=== PATIENT | male | born 1970 | race African-American/Black ===

== ENCOUNTER → 2017-10-23 | Outpatient (CLI) | payer OTHER ==
[2017-10-23 16:47] LABS: HEMATOCRIT 36.6 % (42-52); HEMOGLOBIN 12.5 g/dL (14.0-18.0); MEAN CELL VOLUME 85.7 fL (80-100); MEAN CORPUSCULAR HEMOGLOBIN 29.3 pg (25-34); MEAN PLATELET VOLUME 10.4 fL (7.4-10.4); PLATELET COUNT 214 K/uL (130-400); RED CELL DISTRIBUTION WIDTH CV 12.6 % (11.5-14.5); RED CELL DISTRIBUTION WIDTH SD 39.2 fL (36.4-46.3); WHITE BLOOD COUNT 12.88 K/uL (4.8-10.8)
[2017-10-23 16:49] LABS: MEAN CORPUSCULAR HGB CONC 34.2 g/dl (32-36)
[2017-10-23 17:11] LABS: ALBUMIN 3.8 gm/dl (3.4-5.0); ALKALINE PHOSPHATASE 77 U/L (45-117); ALT/SGPT 29 U/L (12-78); AST/SGOT 21 U/L (15-37); BLOOD UREA NITROGEN 11 mg/dl (7-18); CALCIUM 9.5 mg/dl (8.5-10.1); CARBON DIOXIDE 26 mmol/L (21-32); CREATININE 1.48 mg/dl (0.60-1.40); GLUCOSE 93 mg/dl (70-99); POTASSIUM 3.8 mmol/L (3.5-5.1); SODIUM 136 mmol/L (136-145); TOTAL PROTEIN 8.7 gm/dl (6.4-8.2)
[2017-10-23 17:17] LABS: INFLUENZA B ANTIGEN Neg for Influ B (NEG)
--- NOTE | 2017-10-26 14:02 | CODING QUERY NO DIAGNOSIS ---
TREATMENT RENDERED WITHOUT A DIAGNOSIS Dr. Ibarra, To promote full compliance with coding requirements relating to patient care, physician participation is requested in all cases of tank car cleaner uncertainty. Please assist us with providing a diagnosis/symptom for the test(s) below: A diagnosis/symptom was not documented on your Order. A valid diagnosis/symptom is required to bill all insurances. Please remember that we are unable to code a diagnosis of rule out, probable, possible, questionable, or suspected. Tests that require a diagnosis: * CBC W/O DIFF DIAGNOSIS: * CMP DIAGNOSIS: * INFLUENZA VIRUS A&B ANTIGEN DIAGNOSIS: DATE OF SERVICE: 10/23/17 Provider Signature: Date: Thank you Manny Chowdary [facility] Information Management Once completed, please kindly fax back to [phone] For questions please call [phone]
== END | disposition home or self-care (01) ==
LOC: C.LABSPEC 16:37
PROVIDERS: ATTEND Family Medicine
DX: Z01.89 Encounter for other specified special examinations (principal)

== ENCOUNTER → 2017-10-24 | Outpatient (CLI) | payer OTHER ==
[2017-10-24 12:35] LABS: BASO % 0.1 %; BASO ABS # 0.01 K/uL (0-0.2); EOS % 0.2 %; EOS ABS # 0.03 K/uL (0-0.5); HEMATOCRIT 36.7 % (42-52); IG# 0.02 K/uL (0.00-0.02); LYMPH % 9.6 %; LYMPH ABS # 1.65 K/uL (1.2-3.4); MEAN CORPUSCULAR HEMOGLOBIN 28.8 pg (25-34); MEAN PLATELET VOLUME 10.7 fL (7.4-10.4); MONO % 8.2 %; NEUT % 81.8 %; NEUT ABS # 14.01 K/uL (1.4-6.5); PLATELET COUNT 221 K/uL (130-400); RED CELL DISTRIBUTION WIDTH SD 41.8 fL (36.4-46.3); WHITE BLOOD COUNT 17.12 K/uL (4.8-10.8)
[2017-10-24 12:57] LABS: ALBUMIN 3.1 gm/dl (3.4-5.0); ALKALINE PHOSPHATASE 61 U/L (45-117); ALT/SGPT 24 U/L (12-78); AST/SGOT 17 U/L (15-37); BLOOD UREA NITROGEN 12 mg/dl (7-18); CALCIUM 8.6 mg/dl (8.5-10.1); CARBON DIOXIDE 26 mmol/L (21-32); CREATININE 1.26 mg/dl (0.60-1.40); GLUCOSE 85 mg/dl (70-99); POTASSIUM 3.8 mmol/L (3.5-5.1); SODIUM 137 mmol/L (136-145); TOTAL PROTEIN 7.5 gm/dl (6.4-8.2)
[2017-10-24 13:27] LABS: MEAN CORPUSCULAR HGB CONC 32.7 g/dl (32-36)
--- NOTE | 2017-11-01 08:01 | CODING QUERY NO DIAGNOSIS ---
TREATMENT RENDERED WITHOUT A DIAGNOSIS : 70 To promote full compliance with coding requirements relating to patient care, physician participation is requested in all cases of power plant assistant uncertainty. Please assist us with providing a diagnosis/symptom for the test(s) below: A diagnosis/symptom was not documented on your Order. A valid diagnosis/symptom is required to bill all insurances. Please remember that we are unable to code a diagnosis of rule out, probable, possible, questionable, or suspected. Tests that require a diagnosis: DOS: 10/24/17 * CBC WITH AUTO DIFFER DIAGNOSIS: * COMPREHENSIVE METABO DIAGNOSIS: Provider Signature: Date: Thank you Ailyn Haile [facility] Information Management Once completed, please kindly fax back to [phone] For questions please call [phone]
== END ==
LOC: C.LABSPEC 12:22
PROVIDERS: ATTEND Family Medicine
DX: Z01.89 Encounter for other specified special examinations (principal)

== ENCOUNTER → 2017-10-25 | Outpatient (CLI) | payer OTHER ==
[2017-10-25 07:49] LABS: HEMATOCRIT 36.9 % (42-52); HEMOGLOBIN 12.1 g/dL (14.0-18.0); MEAN CELL VOLUME 87.9 fL (80-100); MEAN CORPUSCULAR HEMOGLOBIN 28.8 pg (25-34); MEAN PLATELET VOLUME 10.5 fL (7.4-10.4); PLATELET COUNT 204 K/uL (130-400); RED CELL DISTRIBUTION WIDTH CV 13.1 % (11.5-14.5); RED CELL DISTRIBUTION WIDTH SD 42.5 fL (36.4-46.3); WHITE BLOOD COUNT 11.54 K/uL (4.8-10.8)
[2017-10-25 08:00] LABS: MEAN CORPUSCULAR HGB CONC 32.8 g/dl (32-36)
== END ==
LOC: C.LABSPEC 07:37
PROVIDERS: ATTEND Family Medicine
DX: Z01.89 Encounter for other specified special examinations (principal)

== ENCOUNTER 2018-03-23 10:16 | Inpatient (IN) | payer OTHER ==
[~2018-03-23] VITALS: Ht 172.7 cm; Wt 103.1 kg
[~2018-03-23 10:16] MED LIST: ACET-1256 PO; MAGNSOL PO; TAMS0.4C38 PO
[2018-03-23] MEDS ORDERED: MoRPHine SULFATE 4 MG/ML 1 ML CARP\\VIAL IV STA (10:45)
[2018-03-23] MEDS ORDERED: ONDANSETRON INJ 2 MG/ML 2 ML VIAL IV STA (10:45)
[2018-03-23 11:10] LABS: BASO % 0.1 %; BASO ABS # 0.01 K/uL (0-0.2); EOS % 0.5 %; EOS ABS # 0.05 K/uL (0-0.5); HEMATOCRIT 31.8 % (42-52); HEMOGLOBIN 10.6 g/dL (14.0-18.0); IG# 0.02 K/uL (0.00-0.02); LYMPH % 10.8 %; LYMPH ABS # 1.18 K/uL (1.2-3.4); MEAN CELL VOLUME 86.6 fL (80-100); MEAN CORPUSCULAR HEMOGLOBIN 28.9 pg (25-34); MEAN CORPUSCULAR HGB CONC 33.3 g/dl (32-36); MEAN PLATELET VOLUME 9.7 fL (7.4-10.4); MONO % 11.7 %; MONO ABS # 1.28 K/uL (0.11-0.59); NEUT % 76.7 %; NEUT ABS # 8.37 K/uL (1.4-6.5); PLATELET COUNT 277 K/uL (130-400); RED CELL DISTRIBUTION WIDTH CV 14.4 % (11.5-14.5); RED CELL DISTRIBUTION WIDTH SD 45.7 fL (36.4-46.3); WHITE BLOOD COUNT 10.91 K/uL (4.8-10.8)
[2018-03-23] MEDS ORDERED: CEFTRIAXONE SOD INJ 1 GM ADDVIAL IV STA (11:21)
[2018-03-23 11:28] LABS: CALCIUM 8.9 mg/dl (8.5-10.1); CREATININE 1.56 mg/dl (0.60-1.40); POTASSIUM 3.8 mmol/L (3.5-5.1)
--- NOTE | 2018-03-23 12:10 | DIAGNOSTIC IMAGING REPORT ---
(TESTICULAR) SCROTUM-CONT CLINICAL HISTORY: 47 years-old Male presenting with R scrotal pain and induration, R testicular tenderness. TECHNIQUE: Real-time grayscale and color and spectral Doppler ultrasound imaging of the scrotum was performed. COMPARISON: 01/30/2018. FINDINGS: Right testis: Normal echogenicity and echotexture. Testis measures 4.5 x 2.8 x 2.4 cm. Normal color Doppler flow and arterial and venous waveforms in the testicular parenchyma. No significant enlargement of the epididymal head, however, hyperemia and enlargement of the epididymal tail suggested. Small hydrocele with low-level internal echoes. No varicocele. Posterior and inferior to the right testis located within the scrotal wall is an 8 mm hypoechoic nodular mass. Internal vascular flow is noted within this this is unchanged from prior exam. Left testis: Normal echogenicity and echotexture. Testis measures 4.2 x 2.9 x 2.2 cm. Normal color Doppler flow and arterial and venous waveforms in the testicular parenchyma. A lesser degree of epididymal hyperemia suggested on the left. Small hydrocele with low-level internal echoes. No varicocele. Symmetric perfusion of the testes. Other: Hyperemia of the scrotum with skin thickening suggested. A septated hypoechoic complex 6.4 x 5.6 x 6.9 cm collection along the right aspect of the scrotum. There is an additional similar-appearing 7.4 x 5.9 x 4.0 cm collection. IMPRESSION: 1. 2 complex fluid collections measuring 6.9 cm and 7.4 cm concerning for abscesses. These are likely located within the scrotal wall or surrounding soft tissues. These are extratesticular and extra scrotal. Urologic consultation advised. 2. No evidence of testicular torsion. 3. Findings suggest right epididymitis. 4. Complex bilateral small hydroceles. Pyoceles not excluded. 5. Indeterminate subcentimeter nodule in the posterior right scrotal wall. Correlate clinically. This is unchanged from prior. Electronically signed by: Severino Pearce M.D. 03/23/2018 12:08 PM Dictated Date/Time: 03/23/2018 11:59 AM
[2018-03-23] MEDS ORDERED: MoRPHine SULFATE 2 MG/ML CARP IV STA (12:57)
[2018-03-23] MEDS ORDERED: OPTIRAY 320 IV PRN (13:30)
[2018-03-23] MEDS ORDERED: MAGNESIUM HYDROXIDE SUSP 30 ML UDC PO PRN (14:15)
[2018-03-23] MEDS ORDERED: ONDANSETRON INJ 2 MG/ML 2 ML VIAL IV PRN (14:15)
[2018-03-23] MEDS ORDERED: PIPERACILL/TAZOBAC CONSULT ACTIVE PRN (14:15)
[2018-03-23] MEDS ORDERED: ALUMINUM/MAGNESIUM/SIMETH (MAALOX MAX) 30 ML UDC PO PRN (14:15)
[2018-03-23] MEDS ORDERED: ACETAMINOPHEN 325 MG TAB PO PRN (14:15)
[2018-03-23] MEDS ORDERED: MoRPHine SULFATE 2 MG/ML CARP IV PRN (14:15)
[2018-03-23] MEDS ORDERED: PIPERACILL/TAZOBAC IV 4.5 GM in DEXTROSE 5% 100ML 100 ML IV SCH (14:15)
[2018-03-23] MEDS ORDERED: ACETAMINOPHEN 500 MG TAB PO PRN (14:45)
--- NOTE | 2018-03-23 16:31 | History and Physical ---
History & Physical Date & Time of Service: Mar 23, 2018 at 16:25 Chief Complaint: Cellulitis Of Perineum Primary Care Physician: Jodi PINTO Past Medical/Surgical History Medical Problems: (1) Perineal abscess (2) Pyocele (3) Testicular pain, left (4) Urinary retention Family History Diabetes mellitus This patient presents with persistent perineal problems. There is some concern of a abscess associate with the scrotum on ultrasound. He does have soft tissue swelling more the perineal area toward the rectum on the left side. Patient does relate having difficulty going to the bathroom both with urine and stool he has had some rigors and chills at the present he has been on antibiotics and as soon as these are stopped this comes right back. Urology is agreed in therapy to see the patient for possible incision and drainage Social History Smoking Status: Never Smoker Occupational Status: other Allergies Coded Allergies: No Known Allergies (Unverified , 02/01/18) Home Medications Unable to Obtain Active Prescriptions or Reported Meds Review of Systems ROS: well nourished well developed. He appears uncomfortable No double vision blurry vision No problems with speech or swallowing No palpitations, chest pain or pressure No Wheezing or breathing issues No abdominal pain nausea vomiting diarrhea changes in appetite or weight constipation change in stool caliber Patient has burning and straining of urine and difficulty passing urine and stool No focal joint pain or muscle pain No skin rashes or oral lesions No unusual bruising or bleeding No focused back pain or numbness or loss of strength No changes in memory or confusion Physical Exam Vital Signs Date Time Temp Pulse Resp B/P (MAP) Pulse Ox O2 Delivery O2 Flow Rate FiO2 03/23/18 15:45 77 18 143/75 97 Room Air 03/23/18 13:15 70 18 121/77 99 Room Air 03/23/18 12:03 69 18 116/60 97 Room Air 03/23/18 10:22 36.8 92 18 136/77 98 Room Air General Appearance: WD/WN, + mild distress Head: normocephalic, atraumatic Eyes: normal inspection, sclerae normal ENT: hearing grossly normal, pharynx normal Neck: supple, no JVD Respiratory/Chest: chest non-tender, lungs clear, normal breath sounds Cardiovascular: regular rate, rhythm, no murmur Abdomen/GI: normal bowel sounds, non tender, soft Genitourinary - Male: normal male genitalia, normal phallus, + pertinent finding (Testicles appear normal is not significant swelling in the scrotal area there is however indurated 3-4 cm mass in the area between the scrotum and rectum more towards the left side) Extremities/Musculoskelatal: no pedal edema, normal range of motion Neurologic/Psych: alert, oriented x 3 Skin: normal color, warm/dry Diagnostics Laboratory Results Results Past 24 Hours Test 03/23/18 11:00 03/23/18 11:15 Range/Units White Blood Count 10.91 4.8-10.8 K/uL Red Blood Count 3.67 4.7-6.1 M/uL Hemoglobin 10.6 14.0-18.0 g/dL Hematocrit 31.8 42-52 % Mean Corpuscular Volume 86.6 80-100 fL Mean Corpuscular Hemoglobin 28.9 25-34 pg Mean Corpuscular Hemoglobin Concent 33.3 32-36 g/dl Platelet Count 277 130-400 K/uL Mean Platelet Volume 9.7 7.4-10.4 fL Neutrophils (%) (Auto) 76.7 % Lymphocytes (%) (Auto) 10.8 % Monocytes (%) (Auto) 11.7 % Eosinophils (%) (Auto) 0.5 % Basophils (%) (Auto) 0.1 % Neutrophils # (Auto) 8.37 1.4-6.5 K/uL Lymphocytes # (Auto) 1.18 1.2-3.4 K/uL Monocytes # (Auto) 1.28 0.11-0.59 K/uL Eosinophils # (Auto) 0.05 0-0.5 K/uL Basophils # (Auto) 0.01 0-0.2 K/uL RDW Standard Deviation 45.7 36.4-46.3 fL RDW Coefficient of Variation 14.4 11.5-14.5 % Immature Granulocyte % (Auto) 0.2 % Immature Granulocyte # (Auto) 0.02 0.00-0.02 K/uL Sodium Level 134 136-145 mmol/L Potassium Level 3.8 3.5-5.1 mmol/L Chloride Level 105 98-107 mmol/L Carbon Dioxide Level 21 21-32 mmol/L Anion Gap 8.0 3-11 mmol/L Blood Urea Nitrogen 13 7-18 mg/dl Creatinine 1.56 0.60-1.40 mg/dl Est Creatinine Clear Calc Drug Dose 68.1 ml/min Estimated GFR () 60.4 Estimated GFR (Non- 52.1 BUN/Creatinine Ratio 8.6 10-20 Random Glucose 97 70-99 mg/dl Calcium Level 8.9 8.5-10.1 mg/dl Urine Color DK YELLOW Urine Appearance CLEAR CLEAR Urine pH 6.0 4.5-7.5 Urine Specific [place] 1.034 1.000-1.030 Urine Protein 1+ NEG Urine Glucose (UA) NEG NEG Urine Ketones TRACE NEG Urine Occult Blood TRACE NEG Urine Nitrite NEG NEG Urine Bilirubin NEG NEG Urine Urobilinogen POS NEG Urine Leukocyte Esterase MODERATE NEG Urine WBC (Auto) >30 0-5 /hpf Urine RBC (Auto) 5-10 0-4 /hpf Urine Hyaline Casts (Auto) 10-30 0-5 /lpf Urine Epithelial Cells (Auto) 10-20 0-5 /lpf Urine Bacteria (Auto) NEG NEG Microbiology Results 03/23/18 Blood Culture, Received Pending 03/23/18 Blood Culture, Received Pending Diagnostic Radiology Testicular ultrasound raises question of scrotal abscess Impression Assessment and Plan 47-year-old nondiabetic male with scrotal perineal abscess This is been long-standing for this patient has he has had symptoms for the last 10 months intermittently and has been on antibiotics intermittently. Will pursue CT scan of his pelvis to evaluate for perirectal abscess and surgical consultation for possible incision and drainage. He has had blood cultures and urine culture sent will be placed on Zosyn therapy Once postoperative hemostasis is achieved to be placed on heparin therapy for DVT prevention as is given this is a pelvic issue he may be at moderate to high risk for DVT Pain control be parenteral opiates with oxycodone Resuscitation Status VTE Prophylaxis Will order VTE Prophylaxis: Yes
[2018-03-23 16:50] VITALS: BP 130/71; PULSE 84; TEMP 37; O2SAT 98; Ht 172.7 cm; Wt 103.1 kg
[2018-03-23 16:55] VITALS: BP 130/71; PULSE 83; TEMP 37; O2SAT 99
--- NOTE | 2018-03-23 17:15 | DIAGNOSTIC IMAGING REPORT ---
CT OF THE PELVIS WITH CONTRAST CLINICAL HISTORY: Cellulitis of perineum. COMPARISON STUDY: Scrotal ultrasound performed earlier today. TECHNIQUE: Axial images of the pelvis were obtained following intravenous injection of 116 cc Optiray 320 IV. Sagittal and coronal reconstructions were viewed. FINDINGS: Caliber and wall thickness of visualized small and large bowel are normal. Mild bladder wall thickening is noted. There is no acute fracture within the pelvis or hips. There is a lipoma along anterior aspect of the left iliopsoas muscle. This is benign. Note is made of extensive inflammation within the perineum and the superior aspect of the scrotum with scrotal edema. Note is made of a 7.5 x 2.9 cm rim-enhancing fluid collection within the perineum/base of the penis. In addition, there is an adjacent 6.9 x 5.9 cm fluid collection within the superior aspect of the scrotum/inferior perineum which suggests an additional abscess. There is no soft tissue gas. IMPRESSION: 1. Extensive infectious process involving the perineum, base of the penis and upper scrotum consistent with cellulitis with associated 7.5 x 2.9 cm abscess within the perineum/base of the penis and a 6.9 x 5.9 cm abscess within the superior aspect of the scrotum/inferior perineum. Urologic consultation is recommended. 2. Bladder wall thickening which could be correlated with urinalysis to exclude cystitis. Electronically signed by: Nelson Parrish M.D. 03/23/2018 5:14 PM Dictated Date/Time: 03/23/2018 5:05 PM
[2018-03-23] MEDS: OXYCODONE HCL IR 5 MG TAB (IMMEDIATE RELEASE) PO PRN (17:28)
[2018-03-23] MEDS: SODIUM CHLORIDE 0.9% 1000ML 1,000 ML IV SCH (17:29)
[2018-03-23] MEDS ORDERED: PIPERACILL/TAZOBAC IV 3.375 GM in D5W 100 ML IV ONE (17:30)
--- NOTE | 2018-03-23 17:49 | History and Physical ---
History & Physical Date Mar 23, 2018. Chief Complaint Abscess History of Present Illness The patient is a 47 year old male with complaints of large scrotal abscess and swelling. Intermittent illness and elevated white count. Pain in groin in waves .Previously placed on antiboitcs and failed outpatient therapy. Here due to worsening symptoms. Imaging shows large scrotal wall abscess and bilateral hydrocele. Past Medical/Surgical History Medical Problems: (1) Perineal abscess Allergies Coded Allergies: No Known Allergies (Unverified , 02/01/18) Home Medications Unable to Obtain Active Prescriptions or Reported Meds Physical Examination Skin: warm/dry Eyes: normal inspection Head: normocephalic Neck: trachea midline Respiratory/Chest: no respiratory distress Cardiovascular: regular rate, rhythm Abdomen / GI: non tender Back: normal inspection Extremities: normal inspection Genitourinary - Male: + pertinent finding (large scrotal abscess. ) Neurologic/Psych: no motor/sensory deficits, alert, normal reflexes, oriented x 3 Diagnosis Scrotal Abscess. ASA Classification: ASA Class III Plan of Treatment Risks and benefits discussed. Large scrotal abscess with failed outpatient therapy with antibiotics. Discussed excision and drainage and possible surgical debridement and scrotal exploration. patinet understands and wishes to proceed. Will have packing after procedure and need wound care planning. Also likely need broad spectrum coverage with antibiotics. May need further diabetic control and medical management.
[2018-03-23 18:27] LABS: INR 1.1 (0.9-1.1); PTT PATIENT 33.1 SECONDS (21.0-31.0)
[2018-03-23] MEDS: MoRPHine SULFATE 4 MG/ML 1 ML CARP\\VIAL IV PRN ×2 (18:31→22:52)
--- NOTE | 2018-03-23 18:32 | EMERGENCY ROOM VISIT NOTE ---
ED Visit Note First contact with patient: 10:34 CHIEF COMPLAINT: Infection. HISTORY OF PRESENT ILLNESS: Mr. Dumont is an 47-year-old black male who ambulates into the ED accompanied by senior care guards complaining of right sided scrotal pain. Historically patient reports he had a scrotal abscess in January, 2 months ago. He was placed on Bactrim and reportedly had near resolution of the abscess and his pain associated with it. Over the last 2 days he has noted increasing pain and swelling over the right scrotal area. He was seen at the senior care and diagnosed with an abscess. Currently patient is complaining of severe right sided scrotal pain. He describes this as a combination of sharp and throbbing. He rates his discomfort 10/10. His pain is nonradiating. He reports when his bladder fills up and he feels like he needs to urinate this increases his discomfort and ambulation increases his discomfort. After he urinates he noticed a decrease in discomfort. He reports he has been getting ibuprofen for pain and has had no relief of his discomfort. He denies any associated fevers, chills, sweats, shortness of breath, chest pain, decreased appetite, nausea, vomiting, back/ flank pain, rectal bleeding, black/tarry stools, painful bowel movements, urinary burning, increased urinary frequency, hematuria. REVIEW OF SYSTEMS: As previously noted in History of Present Illness; all body systems reviewed with the patient found to be negative unless noted above otherwise. PAST MEDICAL HISTORY: As noted above and benign prostatic hypertrophy, prostatitis, eczema. CURRENT MEDICATION: Bactrim, ibuprofen, Flomax. ALLERGIES TO MEDICATION: Patient denies. SOCIAL HISTORY: Patient is currently incarcerated PHYSICAL EXAM: Vital Signs: Date Time Temp Pulse Resp B/P (MAP) Pulse Ox O2 Delivery O2 Flow Rate FiO2 03/23/18 13:15 70 18 121/77 99 Room Air 03/23/18 12:03 69 18 116/60 97 Room Air 03/23/18 10:22 36.8 92 18 136/77 98 Room Air General: 47 year-old male in mild to moderate acute distress due to pain, nontoxic appearing, afebrile and hemodynamically stable. Neurological: Awake, alert and oriented to person, place and time. Answering questions appropriately and following commands. Skin: Warm, dry and pink. There is an indurated area in the XXX which measures about XX cm in diameter. It is fluctuant with/out pointing, but no drainage. Right Scrotum: There is a large zone of inflammation around the right lateral aspect and posterior aspect of the scrotum. There is a small area of induration. The surrounding tissues are erythematous, edematous and warm to the touch but I do not appreciate any lymphangitis. Thorax: Lungs sounds are clear to auscultation and equal bilaterally with symmetrical chest wall movement. Abdomen: Flat, soft and nontender. Positive bowel sounds in all quadrants. No guarding or rigidity. Genitals: Please note soft description above under SKIN. Mature, circumcised penis. Appearance of penile warts at the base of the superior shaft of the penis. No other lesions were noted. No drainage from the meatus. Scrotum as noted above. There is no left-sided scrotal lesions. The right testicle was tender to palpation but appear to have a normal lie. No extra scrotal masses were palpable. No local lymphadenopathy. ED COURSE: Patient is assessed as noted above. Patient's medication list was reviewed. Laboratory Testing: Test 03/23/18 11:00 03/23/18 11:15 Range/Units White Blood Count 10.91 4.8-10.8 K/uL Red Blood Count 3.67 4.7-6.1 M/uL Hemoglobin 10.6 14.0-18.0 g/dL Hematocrit 31.8 42-52 % Mean Corpuscular Volume 86.6 80-100 fL Mean Corpuscular Hemoglobin 28.9 25-34 pg Mean Corpuscular Hemoglobin Concent 33.3 32-36 g/dl Platelet Count 277 130-400 K/uL Mean Platelet Volume 9.7 7.4-10.4 fL Neutrophils (%) (Auto) 76.7 % Lymphocytes (%) (Auto) 10.8 % Monocytes (%) (Auto) 11.7 % Eosinophils (%) (Auto) 0.5 % Basophils (%) (Auto) 0.1 % Neutrophils # (Auto) 8.37 1.4-6.5 K/uL Lymphocytes # (Auto) 1.18 1.2-3.4 K/uL Monocytes # (Auto) 1.28 0.11-0.59 K/uL Eosinophils # (Auto) 0.05 0-0.5 K/uL Basophils # (Auto) 0.01 0-0.2 K/uL RDW Standard Deviation 45.7 36.4-46.3 fL RDW Coefficient of Variation 14.4 11.5-14.5 % Immature Granulocyte % (Auto) 0.2 % Immature Granulocyte # (Auto) 0.02 0.00-0.02 K/uL Sodium Level 134 136-145 mmol/L Potassium Level 3.8 3.5-5.1 mmol/L Chloride Level 105 98-107 mmol/L Carbon Dioxide Level 21 21-32 mmol/L Anion Gap 8.0 3-11 mmol/L Blood Urea Nitrogen 13 7-18 mg/dl Creatinine 1.56 0.60-1.40 mg/dl Est Creatinine Clear Calc Drug Dose 68.1 ml/min Estimated GFR () 60.4 Estimated GFR (Non- 52.1 BUN/Creatinine Ratio 8.6 10-20 Random Glucose 97 70-99 mg/dl Calcium Level 8.9 8.5-10.1 mg/dl Urine Color DK YELLOW Urine Appearance CLEAR CLEAR Urine pH 6.0 4.5-7.5 Urine Specific [place] 1.034 1.000-1.030 Urine Protein 1+ NEG Urine Glucose (UA) NEG NEG Urine Ketones TRACE NEG Urine Occult Blood TRACE NEG Urine Nitrite NEG NEG Urine Bilirubin NEG NEG Urine Urobilinogen POS NEG Urine Leukocyte Esterase MODERATE NEG Urine WBC (Auto) >30 0-5 /hpf Urine RBC (Auto) 5-10 0-4 /hpf Urine Hyaline Casts (Auto) 10-30 0-5 /lpf Urine Epithelial Cells (Auto) 10-20 0-5 /lpf Urine Bacteria (Auto) NEG NEG Urine Culture: Pending Scrotal/Testicular Ultrasound: Self and read by the radiology showing 2 complex fluid collection measuring 6.9 and 7.4 cm concerning for abscess located within the scrotal wall along the right aspect of the scrotum. No evidence of testicular torsion. Findings suggestive of right epididymitis. Complex bilateral small hydroceles. Indeterminate subcentimeter nodule in the posterior right scrotal wall unchanged from previous ultrasound. Patient was hydrated with normal saline and initially received 4 mg of morphine IV for pain and 4 mg of Zofran IV. Additionally he received 1 g of Rocephin IV. Patient was reassessed multiple times during his stay in the emergency department. Patient's case was reviewed with Dr. Giordano; we agreed on diagnostic approach, treatment, disposition and plan. Patient's case was consulted with Dr. Graham, urology; I did speak to his nurse practitioner [place]. After my initial consult patient did speak with her again and she requested at Dr. Graham request that a pelvic CT be performed and the patient prepped for OR I and D. Additionally it was requested that the patient be evaluated by the hospitalist prior to surgery. I did speak with the hospitalist and conveyed Dr. Graham's request; please see their notes. Contrast CT Pelvis: Was reviewed by my self and read by the radiologist showing an extensive infectious process involving the peritoneum, base of the penis and upper scrotum with associated abscesses. Also noted was bladder wall thickening. Patient received an additional 2 mg of morphine IV for pain. Patient was educated about his condition and instructed on his treatment plan; they verbalized understanding and agreement with this plan. CLINIC IMPRESSION: Abscess of the certain a.m./right scrotal area. DISPOSITION and PLAN: Patient be taken to the operating room for surgical incision and drainage procedure of his abscesses by Dr. Graham; please see his notes and orders for final disposition and plan.
[2018-03-23] MEDS: KETOROLAC TROMETHAMINE 30 MG/ML VIAL IV PRN (20:12)
[2018-03-23] MEDS ORDERED: PHENAZOPYRIDINE HCL 200 MG TAB PO PRN (21:00)
[2018-03-23] MEDS: PIPERACILL/TAZOBAC IV 3.375 GM in D5W 100ML IV SCH (22:08)
[2018-03-23 22:52] VITALS: BP 126/75; PULSE 84; TEMP 36.9; O2SAT 96
[2018-03-24] VITALS (9 sets, daily range): BP systolic 103–152; BP diastolic 60–78; PULSE 58–74; TEMP 36.5–37.1; O2SAT 91–98
[2018-03-24] MEDS: OXYCODONE HCL IR 5 MG TAB (IMMEDIATE RELEASE) PO PRN (01:18)
[2018-03-24] MEDS: SODIUM CHLORIDE 0.9% 1000ML 1,000 ML IV SCH ×3 (03:04→21:52)
[2018-03-24] MEDS: PIPERACILL/TAZOBAC IV 3.375 GM in D5W 100ML IV SCH ×3 (05:38→21:29)
[2018-03-24] MEDS: MoRPHine SULFATE 4 MG/ML 1 ML CARP\\VIAL IV PRN (05:46)
[2018-03-24 06:50] LABS: HEMATOCRIT 31.6 % (42-52); HEMOGLOBIN 10.3 g/dL (14.0-18.0); MEAN CELL VOLUME 87.8 fL (80-100); MEAN CORPUSCULAR HEMOGLOBIN 28.6 pg (25-34); MEAN CORPUSCULAR HGB CONC 32.6 g/dl (32-36); MEAN PLATELET VOLUME 9.9 fL (7.4-10.4); PLATELET COUNT 333 K/uL (130-400); RED CELL DISTRIBUTION WIDTH CV 14.5 % (11.5-14.5); RED CELL DISTRIBUTION WIDTH SD 46.9 fL (36.4-46.3); WHITE BLOOD COUNT 11.33 K/uL (4.8-10.8)
[2018-03-24 07:04] LABS: HEMOGLOBIN A1C 5.4 % (4.5-5.6)
[2018-03-24] MEDS ORDERED: BACITRACIN 50000 UNIT VIAL ONE (07:04)
[2018-03-24] MEDS ORDERED: BACITRACIN OINT 15 GM TUBE ONE (07:04)
[2018-03-24] MEDS ORDERED: BUPIVACAINE 0.5 % 5 MG/1 ML PF 10ML VIAL ONE (07:04)
[2018-03-24] MEDS ORDERED: MIDAZOLAM HCL 1 MG/ML 2ML VIAL ONE (07:05)
[2018-03-24] MEDS ORDERED: FENTANYL CITRATE INJ 50 MCG/1 ML 2 ML VIAL ONE ×2 (07:06→09:09)
[2018-03-24 07:16] LABS: CREATININE 1.59 mg/dl (0.60-1.40)
[2018-03-24 07:17] LABS: CALCIUM 8.7 mg/dl (8.5-10.1); POTASSIUM 3.9 mmol/L (3.5-5.1)
--- NOTE | 2018-03-24 07:39 | History & Physical Bridge Note ---
H&P Re-Evaluation Bridge Note: I have examined the patient, reviewed the History & Physical and in the interval since the performance of the History & Physical I have noted the following changes of clinical significance: No changes noted Plan to OR today for incision and drainage possible washout and debridement and possible scrotal exploration.
[2018-03-24] MEDS: HEPARIN SOD 5000 UNIT/0.5 ML CARP SQ SCH ×2 (08:00→15:46)
[2018-03-24] MEDS ORDERED: DEXAMETHASONE SOD INJ 4 MG/ML VIAL ONE (08:07)
[2018-03-24] MEDS ORDERED: ONDANSETRON INJ 2 MG/ML 2 ML VIAL ONE ×2 (08:07→09:53)
[2018-03-24] MEDS ORDERED: PROPOFOL IV EMULSION 10 MG/ML 20 ML VIAL ONE (08:08)
[2018-03-24] MEDS ORDERED: SUCCINYLCHOLINE 100MG/5ML SYR IV ONE (08:08)
[2018-03-24] MEDS ORDERED: LIDOCAINE HCL 2% 2 ML VIAL (20MG/ML) ONE (08:08)
--- NOTE | 2018-03-24 08:10 | Progress Note ---
Subjective Date of Service: Mar 24, 2018. Subjective pt was seen post operatively after I&D, he is awake and has some feelings of the need to void( has a catheter) Problem List Medical Problems: (1) Pyocele Status: Acute (2) Testicular pain, left Status: Acute (3) Urinary retention Status: Acute Review of Systems Constitutional: + weakness, + fatigue, No fever, No chills Respiratory: No cough, No shortness of breath Cardiac: No chest pain, No edema Abdomen: + pain, No nausea, No vomiting, No diarrhea Male : + dysuria, + urinary frequency, + hematuria, No incontinence Psychiatric: No depression symptoms, No anxiety Objective Vital Signs Date Time Temp Pulse Resp B/P (MAP) Pulse Ox O2 Delivery O2 Flow Rate FiO2 03/24/18 06:50 37.0 73 18 103/60 (74) 98 Room Air 03/23/18 22:52 36.9 84 16 126/75 (92) 96 Room Air 03/23/18 19:32 Room Air 03/23/18 16:55 37.0 83 16 130/71 (90) 99 Room Air 03/23/18 16:50 98 Room Air 03/23/18 16:50 37.0 84 18 130/71 98 Room Air 03/23/18 15:45 77 18 143/75 97 Room Air 03/23/18 13:15 70 18 121/77 99 Room Air 03/23/18 12:03 69 18 116/60 97 Room Air 03/23/18 10:22 36.8 92 18 136/77 98 Room Air Physical Exam General Appearance: WD/WN, + mild distress Eyes: normal inspection, sclerae normal Neck: supple, no JVD Respiratory/Chest: chest non-tender, lungs clear, normal breath sounds Cardiovascular: regular rate, rhythm, no murmur Abdomen: normal bowel sounds, non tender, soft Extremities: no pedal edema, no calf tenderness Neurologic/Psychiatric: alert, oriented x 3 Skin: normal color, warm/dry, no rash Laboratory Results Last 24 Hours Test 03/23/18 11:00 03/23/18 11:15 03/23/18 17:58 03/24/18 06:01 White Blood Count 10.91 K/uL 11.33 K/uL Red Blood Count 3.67 M/uL 3.60 M/uL Hemoglobin 10.6 g/dL 10.3 g/dL Hematocrit 31.8 % 31.6 % Mean Corpuscular Volume 86.6 fL 87.8 fL Mean Corpuscular Hemoglobin 28.9 pg 28.6 pg Mean Corpuscular Hemoglobin Concent 33.3 g/dl 32.6 g/dl Platelet Count 277 K/uL 333 K/uL Mean Platelet Volume 9.7 fL 9.9 fL Neutrophils (%) (Auto) 76.7 % Lymphocytes (%) (Auto) 10.8 % Monocytes (%) (Auto) 11.7 % Eosinophils (%) (Auto) 0.5 % Basophils (%) (Auto) 0.1 % Neutrophils # (Auto) 8.37 K/uL Lymphocytes # (Auto) 1.18 K/uL Monocytes # (Auto) 1.28 K/uL Eosinophils # (Auto) 0.05 K/uL Basophils # (Auto) 0.01 K/uL RDW Standard Deviation 45.7 fL 46.9 fL RDW Coefficient of Variation 14.4 % 14.5 % Immature Granulocyte % (Auto) 0.2 % Immature Granulocyte # (Auto) 0.02 K/uL Sodium Level 134 mmol/L 137 mmol/L Potassium Level 3.8 mmol/L 3.9 mmol/L Chloride Level 105 mmol/L 105 mmol/L Carbon Dioxide Level 21 mmol/L 23 mmol/L Anion Gap 8.0 mmol/L 8.0 mmol/L Blood Urea Nitrogen 13 mg/dl 17 mg/dl Creatinine 1.56 mg/dl 1.59 mg/dl Est Creatinine Clear Calc Drug Dose 68.1 ml/min 66.8 ml/min Estimated GFR () 60.4 59.0 Estimated GFR (Non- 52.1 50.9 BUN/Creatinine Ratio 8.6 10.6 Random Glucose 97 mg/dl 108 mg/dl Calcium Level 8.9 mg/dl 8.7 mg/dl Urine Color DK YELLOW Urine Appearance CLEAR Urine pH 6.0 Urine Specific Cascade 1.034 Urine Protein 1+ Urine Glucose (UA) NEG Urine Ketones TRACE Urine Occult Blood TRACE Urine Nitrite NEG Urine Bilirubin NEG Urine Urobilinogen POS Urine Leukocyte Esterase MODERATE Urine WBC (Auto) >30 /hpf Urine RBC (Auto) 5-10 /hpf Urine Hyaline Casts (Auto) 10-30 /lpf Urine Epithelial Cells (Auto) 10-20 /lpf Urine Bacteria (Auto) NEG Prothrombin Time 11.2 SECONDS Prothromb Time International Ratio 1.1 Activated Partial Thromboplast Time 33.1 SECONDS Partial Thromboplastin Ratio 1.3 Estimated Average Glucose 108 mg/dl Hemoglobin A1c 5.4 % Assessment and Plan 47-year-old nondiabetic male with scrotal perineal abscess S/P I&D pending blood cultures and urine culture remains on Zosyn therapy Once postoperative hemostasis is achieved to be placed on heparin therapy for DVT prevention as is given this is a pelvic issue he may be at moderate to high risk for DVT Pain control be parenteral opiates with oxycodone
[2018-03-24] MEDS ORDERED: HYDROmorphone INJ 2 MG/ML SYR/VIAL IV PRN (08:15)
[2018-03-24] MEDS ORDERED: MEPERIDINE HCL 25 MG/ML CARP IV PRN (08:15)
[2018-03-24] MEDS ORDERED: LABETALOL HCL IV 5 MG/ML 20ML IV PRN (08:15)
[2018-03-24] MEDS ORDERED: FENTANYL CITRATE INJ 50 MCG/1 ML 2 ML VIAL IV PRN (08:15)
[2018-03-24] MEDS ORDERED: PHENYLEPHRINE 100MCG/ML 5ML SYR IV PRN (08:15)
[2018-03-24] MEDS ORDERED: FLUMAZENIL 0.1 MG/1 ML 10 ML VIAL IV PRN (08:15)
[2018-03-24] MEDS ORDERED: ONDANSETRON INJ 2 MG/ML 2 ML VIAL IV PRN (08:15)
[2018-03-24] MEDS ORDERED: EpHEDrine SULFATE INJ 50 MG/ML AMP IV PRN (08:15)
[2018-03-24] MEDS ORDERED: NALOXONE HCL 0.4 MG/1 ML VIAL/CARP IV PRN (08:15)
[2018-03-24] MEDS ORDERED: ATROPINE SULFATE 0.1 MG/ML 5ML SYR IV PRN (08:15)
--- NOTE | 2018-03-24 09:17 | [facility] Operative Report ---
Operative Report Operative Date Mar 23, 2018. Pre-Operative Diagnosis Scrotal abscess x 3 Post-Operative Diagnosis Same with obliterated distal urethera with pinpoint stricture entire distal 2/3 of pendulous urethra Procedure(s) Performed Incision and drainage with placement of packing and debridement of tissue with cystoscopy and dilation of stricture and difficult jenkins placement. Surgeon Graham Estimated Blood Loss Minimal Findings Large scrotal abscess surrounding bulbar urethra with pinpoint stricture Specimens Culture from fluid from abscess and debridement x 3 Drains None Anesthesia Type General Complication(s) none Disposition Recovery Room / PACU Indications Large abscess failed outpatient medical therapy. Risks and benefits discussed. Description of Procedure Patient was consented and brought back to the operating room. Patient was placed under anesthesia in the supine position. Patient was prepped and draped in the regular sterile fashion. A time out was completed. With the time out completed and the patient prepped, the skin over the abscess was marked and local injected into the subcutaneous tissues. An incision was made with a scalpel and the deep tissues were dissected with bovie electrocautery. The abscess sac was assessed and opened. The fluid was sent for culture. The entire area was probed and loculations were destroyed and broken up. This was copiously irrigated. The abscess cavity was debrided. The tissue was sent with the culture. The area was irrigated again. The other two cavities were treated in the same way. This was washed out multiple times. On probing and inspection there was concern that the abscess surrounded the bulbar and proximal pendulous urethra. Gloves and gown were exchanged. A jenkins was attempted to be placed and severe stricture was noted just proximal to the meatus. A flexible cystoscope was selected and pinpoint stricture was found. A wire was placed. Tammie dilators were selected and incrementally dilated started with 14 ku[place]i. Multiple exchanges with the scope were done to progress down the urethera. Stricture was noted throughout the pendulous urethra down to bulbar urethra where the urethra was found to be dilated. No obvious fistula. The scope was advanced to the bladder which was also dilated. The prostatic urethra was also dilated. Images were captured. The wire was placed and the urethra dilated up to 22 ku[place]i. A final 16 rosebud tip catheter was placed and drained the bladder. Assessing the wound, not obvious openings or areas of concern, fistula, or diverticulum were noted but was limited due to severely indurated tissues. Iodoform Packing was placed into the wound. The area was cleaned. Fluffs, absorbant gauze, and support was placed. The patient was cleaned, aroused from anesthesia, and transferred to the pacu in stable condition having tolerated the procedure well with no complications. I was present and participated in all aspects of the procedure. I attest to the content of the Intraoperative Record and any orders documented therein. Any exceptions are noted below.
--- NOTE | 2018-03-24 09:58 | Anesthesiology Progress Note ---
Anesthesia Post Op Note Date & Time Mar 24, 2018 at 09:58 Vital Signs Pain Intensity: 0 Vital Signs Past 12 Hours Date Time Temp Pulse Resp B/P (MAP) Pulse Ox O2 Delivery O2 Flow Rate FiO2 03/24/18 09:43 37.2 68 16 118/64 100 Oxymask 10 03/24/18 06:50 37.0 73 18 103/60 (74) 98 Room Air 03/23/18 22:52 36.9 84 16 126/75 (92) 96 Room Air Notes Mental Status: alert / awake / arousable, participated in evaluation Pt Amnestic to Procedure: Yes Nausea / Vomiting: adequately controlled, improving with treatment Pain: adequately controlled Airway Patency, RR, SpO2: stable & adequate BP & HR: stable & adequate Hydration State: stable & adequate Anesthetic Complications: no major complications apparent
[2018-03-25] MEDS: HEPARIN SOD 5000 UNIT/0.5 ML CARP SQ SCH ×3 (00:29→15:10)
[2018-03-25 03:53] VITALS: BP 117/65; PULSE 60; TEMP 36.6; O2SAT 98
[2018-03-25] MEDS: PIPERACILL/TAZOBAC IV 3.375 GM in D5W 100ML IV SCH ×3 (06:32→21:28)
[2018-03-25] MEDS: SODIUM CHLORIDE 0.9% 1000ML 1,000 ML IV SCH ×2 (07:29→17:39)
[2018-03-25 07:31] VITALS: BP 128/61; PULSE 63; TEMP 36.7; O2SAT 98
[2018-03-25 11:22] VITALS: BP 145/75; PULSE 66; TEMP 36.6; O2SAT 96
--- NOTE | 2018-03-25 12:47 | Progress Note ---
Subjective Date of Service: Mar 25, 2018. Subjective the pt is doing well feels much better, awaiting culture results Problem List Medical Problems: (1) Pyocele Status: Acute (2) Testicular pain, left Status: Acute (3) Urinary retention Status: Acute Review of Systems Constitutional: No fever, No chills, No weakness, No fatigue Cardiac: No chest pain, No edema, No claudication Abdomen: No pain, No nausea, No vomiting Male : + problem reported (has a catheter placed), No dysuria, No incontinence Neurologic: No memory loss Psychiatric: No depression symptoms, No anxiety Objective Vital Signs Date Time Temp Pulse Resp B/P (MAP) Pulse Ox O2 Delivery O2 Flow Rate FiO2 03/25/18 11:22 36.6 66 18 145/75 (98) 96 Room Air 03/25/18 07:31 36.7 63 18 128/61 (83) 98 Room Air 03/25/18 07:25 Room Air 03/25/18 03:53 36.6 60 18 117/65 (82) 98 Room Air 03/24/18 23:30 Room Air 03/24/18 23:08 36.7 69 17 152/78 (102) 98 Room Air 03/24/18 19:22 37.1 74 18 138/70 (92) 95 Room Air 03/24/18 17:53 96 Room Air 03/24/18 15:24 36.6 58 16 124/69 (87) 96 Room Air 03/24/18 12:48 36.8 67 18 115/69 (84) 97 Room Air Physical Exam General Appearance: WD/WN, + mild distress Eyes: normal inspection, sclerae normal Respiratory/Chest: chest non-tender, lungs clear, normal breath sounds Cardiovascular: regular rate, rhythm, no murmur Abdomen: normal bowel sounds, non tender, soft Extremities: no pedal edema, no calf tenderness Neurologic/Psychiatric: alert, oriented x 3 Assessment and Plan 47-year-old nondiabetic male with scrotal perineal abscess S/P I&D pending blood cultures and urine culture remains on Zosyn therapy Once postoperative hemostasis is achieved to be placed on heparin therapy for DVT prevention as is given this is a pelvic issue he may be at moderate to high risk for DVT Pain control be parenteral opiates with oxycodone
[2018-03-25] MEDS: OXYCODONE HCL IR 5 MG TAB (IMMEDIATE RELEASE) PO PRN (13:58)
[2018-03-25 14:59] VITALS: BP 154/77; PULSE 61; TEMP 36.7; O2SAT 96
[2018-03-25] MEDS: KETOROLAC TROMETHAMINE 30 MG/ML VIAL IV PRN (17:39)
--- NOTE | 2018-03-25 19:41 | Progress Note ---
Subjective Date of Service: Mar 25, 2018. 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 Drained. NO major bleeding. No fevers. Tolerating well. Tolerating jenkins. NO major changes. No severe bleeding. Problem List Medical Problems: (1) Pyocele Status: Acute (2) Testicular pain, left Status: Acute (3) Urinary retention Status: Acute Review of Systems All Other Systems: Reviewed and Negative Objective Vital Signs Date Time Temp Pulse Resp B/P (MAP) Pulse Ox O2 Delivery O2 Flow Rate FiO2 03/25/18 07:31 36.7 63 18 128/61 (83) 98 Room Air 03/25/18 07:25 Room Air 03/25/18 03:53 36.6 60 18 117/65 (82) 98 Room Air 03/24/18 23:30 Room Air 03/24/18 23:08 36.7 69 17 152/78 (102) 98 Room Air 03/24/18 19:22 37.1 74 18 138/70 (92) 95 Room Air 03/24/18 17:53 96 Room Air 03/24/18 15:24 36.6 58 16 124/69 (87) 96 Room Air 03/24/18 12:48 36.8 67 18 115/69 (84) 97 Room Air 03/24/18 11:35 36.9 65 18 112/66 (81) 98 Room Air Physical Exam General Appearance: WD/WN, no apparent distress Eyes: sclerae normal ENT: hearing grossly normal Neck: no JVD Respiratory/Chest: no respiratory distress, no accessory muscle use Cardiovascular: regular rate, rhythm Abdomen: non tender Extremities: normal range of motion, normal inspection 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 Wound open with 4x4 packing Assessment and Plan 1. Large scrotal abscess s/p ID and debridement 2. 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 Doing well. will need to have jenkins for approx 2 weeks, possibly longer. Concern for further urethral issues. Will likely need to have assessment with reconstruction specialist. Continue local wound care. Maintain packing and change 1-2 x every day. Will need to heal by secondary intent. Plan to finish abx per medicine. Darby Christianson likely has nearest reconstruction specialist. Would likely need referral.
[2018-03-25 22:55] VITALS: BP 149/82; PULSE 60; TEMP 37.2; O2SAT 99
[2018-03-26] MEDS: HEPARIN SOD 5000 UNIT/0.5 ML CARP SQ SCH ×3 (00:48→17:37)
[2018-03-26] MEDS: SODIUM CHLORIDE 0.9% 1000ML 1,000 ML IV SCH (01:12)
[2018-03-26] MEDS: PIPERACILL/TAZOBAC IV 3.375 GM in D5W 100ML IV SCH ×3 (05:24→22:09)
[2018-03-26 06:22] LABS: HEMATOCRIT 31.2 % (42-52); HEMOGLOBIN 10.1 g/dL (14.0-18.0); MEAN CELL VOLUME 87.6 fL (80-100); MEAN CORPUSCULAR HEMOGLOBIN 28.4 pg (25-34); MEAN CORPUSCULAR HGB CONC 32.4 g/dl (32-36); MEAN PLATELET VOLUME 9.5 fL (7.4-10.4); PLATELET COUNT 347 K/uL (130-400); RED CELL DISTRIBUTION WIDTH CV 14.8 % (11.5-14.5); RED CELL DISTRIBUTION WIDTH SD 47.9 fL (36.4-46.3); WHITE BLOOD COUNT 10.44 K/uL (4.8-10.8)
[2018-03-26 07:03] LABS: CALCIUM 8.5 mg/dl (8.5-10.1); CREATININE 1.01 mg/dl (0.60-1.40); POTASSIUM 3.9 mmol/L (3.5-5.1)
[2018-03-26 07:41] VITALS: BP 145/87; PULSE 61; TEMP 36.6; O2SAT 100
[2018-03-26 07:47] VITALS: O2SAT 100
--- NOTE | 2018-03-26 11:50 | Progress Note ---
Progress Note Date of Service Mar 26, 2018. Progress Note ID Consult Dictated #[id number] A/P: 1. Scrotal Abscesses -Add vanco, will need min 14 days -Will follow, thank you
[2018-03-26] MEDS ORDERED: VANCOMYCIN CONSULT ACTIVE PRN (12:00)
--- NOTE | 2018-03-26 12:12 | Progress Note ---
Subjective Date of Service: Mar 26, 2018. Subjective Pt evaluation today including: conversation w/ patient, physical exam, chart review, lab review Pain: controlled PO Intake: tolerating Voiding: jenkins catheter in place (with surrounding leakage) 47 YO male, large scrotal abscess POD #2 s/p ID and debridement, severe pendulous urethra stricture s/p dilation and jenkins Patient reports feeling well this morning, has been up walking hallways. Jenkins remains in place, patent, with leakage around the catheter. Pain is well controlled. Reports he has not moved bowels yet, however he is passing gas. Problem List Medical Problems: (1) Pyocele Status: Acute (2) Testicular pain, left Status: Acute (3) Urinary retention Status: Acute Review of Systems Constitutional: No fever, No chills Eyes: No eye pain Respiratory: No shortness of breath Cardiac: No chest pain Abdomen: No pain, No nausea, No vomiting Male : + see HPI Neurologic: No numbness/tingling Objective Vital Signs Date Time Temp Pulse Resp B/P (MAP) Pulse Ox O2 Delivery O2 Flow Rate FiO2 03/26/18 07:47 100 Room Air 03/26/18 07:41 36.6 61 16 145/87 (106) 100 Room Air 03/26/18 00:15 Room Air 03/25/18 22:55 37.2 60 16 149/82 (104) 99 Room Air 03/25/18 15:05 Room Air 03/25/18 14:59 36.7 61 16 154/77 (102) 96 Room Air Physical Exam General Appearance: no apparent distress Eyes: normal inspection ENT: hearing grossly normal Neck: supple, no JVD Respiratory/Chest: no respiratory distress, no accessory muscle use Cardiovascular: no JVD Abdomen: normal bowel sounds, non tender, soft Extremities: normal inspection Neurologic/Psychiatric: alert, normal mood/affect, oriented x 3 Skin: normal color Comments: Wound is open, loosely packed with 4x4 and surrounding drainage collection pads Wound appears to be healing well: no warmth/redness, mild blood tinged drainage Laboratory Results Last 24 Hours Test 03/26/18 06:11 White Blood Count 10.44 K/uL Red Blood Count 3.56 M/uL Hemoglobin 10.1 g/dL Hematocrit 31.2 % Mean Corpuscular Volume 87.6 fL Mean Corpuscular Hemoglobin 28.4 pg Mean Corpuscular Hemoglobin Concent 32.4 g/dl RDW Standard Deviation 47.9 fL RDW Coefficient of Variation 14.8 % Platelet Count 347 K/uL Mean Platelet Volume 9.5 fL Sodium Level 137 mmol/L Potassium Level 3.9 mmol/L Chloride Level 105 mmol/L Carbon Dioxide Level 24 mmol/L Anion Gap 8.0 mmol/L Blood Urea Nitrogen 14 mg/dl Creatinine 1.01 mg/dl Est Creatinine Clear Calc Drug Dose 105.2 ml/min Estimated GFR () 102.2 Estimated GFR (Non- 88.2 BUN/Creatinine Ratio 13.5 Random Glucose 99 mg/dl Calcium Level 8.5 mg/dl Assessment and Plan Continue wound care: change loose packing (one 4x4) once daily; change surrounding dressing 3x per day or as soiled. Do not manipulate Jenkins catheter, will be staying in place for 2+ weeks. Patient needs follow up with reconstruction urologist - Joseluis or Meghan. Continue antibiotics per medicine's recommendations. Called [facility], spoke with on staff Physician Skating Rink Manager Nathan, states he is familiar with patient. Discussed wound care instructions, importance of maintaining Jenkins catheter, and necessity of referral to reconstruction urologist. Nathan will be arranging referral to Meghan.
[2018-03-26] MEDS ORDERED: VANCOMYCIN IV 2,500 MG in SODIUM CHLORIDE 0.9% 500ML 500 ML IV SCH (12:30)
--- NOTE | 2018-03-26 12:46 | INFECT. DISEASE CONSULTATION ---
DATE OF CONSULTATION: 03/26/2018 HISTORY OF PRESENT ILLNESS: This is a 47-year-old gentleman who was admitted after he had worsening swelling of the scrotal area. He states that in January, he was diagnosed with a scrotal abscess by ultrasound, and he was given ibuprofen and Bactrim and had resolution of his symptoms; however, after the Bactrim was discontinued, he continued to have worsening swelling and pain. He also admits to having some pain after urination and difficulty emptying his bladder. He did have an ultrasound on the which showed a 7.5 x 2.9 penile abscess and a second 6.9 x 5.9 cm scrotal abscess. He did go to the OR on the and had significant I and D. There was some concern by ureteral damage, and his Alejo has been maintained. He states that he is due to see a specialist post discharge from the hospital. A urine culture on the grew corynebacterium, blood cultures have been negative, and 3 separate OR cultures from the are growing corynebacterium species as well. He has been placed on Zosyn empirically and is tolerating this well. He denies any fevers or chills and has been afebrile since admission. He denies any pain. He denies any nausea, vomiting, or diarrhea. His remaining review of systems is reviewed and is unremarkable except for as noted above. PAST MEDICAL HISTORY: Significant for perianal abscesses and urinary retention. PAST SURGICAL HISTORY: As above. FAMILY HISTORY: Noncontributory. SOCIAL HISTORY: Negative for tobacco use, alcohol use, or drug use. He is currently on MA. ALLERGIES: He has no known drug allergies. CURRENT MEDICATIONS: Subcu heparin, Zosyn, Tylenol, Maalox, milk of magnesia, Zofran, Roxicodone, morphine, Toradol. PHYSICAL EXAMINATION: VITAL SIGNS: He is afebrile, pulse 61, respiratory rate 16, blood pressure 145/87, oxygen saturation is 100% on room air. GENERAL: He is awake, alert, and oriented x3. He is in no acute distress. HEENT: Mucous membranes are moist. Extraocular muscles are intact. CARDIOVASCULAR: Heart is regular. RESPIRATORY: Lungs are clear. GASTROINTESTINAL: Abdomen is soft, nontender, nondistended. EXTREMITIES: There is no lower extremity edema. GENITOURINARY: Alejo catheter is in place. LABORATORY STUDIES: CBC: Today, white blood cell count 10.4, hemoglobin 10.1, platelets 347. Chemistry panel: Sodium 137, potassium 3.9, chloride 105, bicarbonate 24, BUN 14, creatinine 1.0, glucose 99. UA had moderate leukocyte esterase, greater than 30 WBCs, and no bacteria. Cultures are as above. IMAGING: As above. Pelvis CT again showed scrotal and penile abscesses. ASSESSMENT AND PLAN: Scrotal abscess with corynebacterium. He will be continued on antibiotics. Vancomycin will be added. He likely will need at least 14 days of antibiotics intravenously. Blood cultures remain negative. Thank you for this consultation.
--- NOTE | 2018-03-26 12:55 | Pharmacy Progress Note ---
Pharmacy Abx Initial Consult Date of Service Mar 26, 2018. Pharmacy Dosing Scope Date of Consult: 03/26/18 Consultation requested by: Dr. Hammond Pharmacy is consulted to initiate Vancomycin and Zosyn IV dosing therapy, order appropriate labs and adjust drug dose/frequency. Subjective The patient is a 47 year old male admitted on Mar 23, 2018 at 14:19. Objective Height (Feet): 5 Height (Inches): 8.00 Weight (Kilograms): 103.100 Vital Signs (Past 12Hrs) Vital Signs Past 12 Hours Date Time Temp Pulse Resp B/P (MAP) Pulse Ox O2 Delivery O2 Flow Rate FiO2 03/26/18 07:47 100 Room Air 03/26/18 07:41 36.6 61 16 145/87 (106) 100 Room Air Lab Results (24Hrs) Laboratory Tests (24 Hours) Test 03/26/18 06:11 White Blood Count 10.44 K/uL (4.8-10.8) Micro Results Date/Time Source Procedure Growth Status 03/23/18 14:45 Blood Blood Culture - Preliminary NO GROWTH TO DATE. Resulted 03/23/18 14:44 Blood Blood Culture - Preliminary NO GROWTH TO DATE. Resulted 03/24/18 03:05 Nasal MRSA DNA Surveillance Screen - Final Specimen Negative for MRSA by DNA Probe Complete 03/23/18 11:15 Urine , Clean Catch Urine Culture - Final Corynbact.sp Not Urealyticum Complete 03/24/18 08:23 Abscess Scrotum Gram Stain - Final Resulted 03/24/18 08:23 Bacterial Culture - Preliminary Corynebacterium Species Resulted 03/24/18 08:23 Abscess Scrotum Gram Stain - Final Resulted 03/24/18 08:23 Bacterial Culture - Preliminary Corynebacterium Species Resulted 03/24/18 08:23 Tissue Scrotum Gram Stain - Final Resulted 03/24/18 08:23 Bacterial Culture - Preliminary Corynebacterium Species Resulted Risk Factors for Resistance * Antimicrobial use within the last 90 days Trimethoprim/sulfamethoxazole DS Tabs BID since 03/19/18 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 Serum creatinine 1.56 mg/dL on admission, now down to 1.01 mg/dL this morning. Will dose cautiously since patient also receiving IV Zosyn. Positive cultures for corynebacterium in scrotal tissue, urine and abscess fluid. Nasal culture on 03/24/18 negative for MRSA Blood cultures are negative to this point. Plan Zosyn/Vancomycin for treatment of scrotal/perianal abscess. Vancomycin IV * Loading dose: 2500 mg (25 mg/kg) * Maintenance dose: 2000 mg IV (19.4 mg/kg) every 12 hours * Goal trough level for abscess: 15 to 20 mcg/mL * Trough level ordered for Monday03/28/18 prior to the noon dose Piperacillin/tazobactam * 3.375 g bolus administered over 30 minutes, then 3.375 g IV extended infusion every 8 hours for CrCl greater than 20 mL/min Pharmacy will continue to follow and will adjust dose/frequency as necessary. Thank you.
[2018-03-26 15:32] VITALS: BP 124/70; PULSE 56; TEMP 36.9; O2SAT 99
--- NOTE | 2018-03-26 15:38 | Progress Note ---
Subjective Date of Service: Mar 26, 2018. Subjective Pt evaluation today including: conversation w/ patient, physical exam, chart review, lab review, review of studies, conversation w/ applications sales consultant, review of inpatient medication list Voiding: jenkins catheter in place Generally doing okay eating drinking, has good amount urine output, no bowel movement yet, denies nausea vomiting, denies fever and chill, Problem List Medical Problems: (1) Pyocele Status: Acute (2) Testicular pain, left Status: Acute (3) Urinary retention Status: Acute Review of Systems Constitutional: + weakness, + fatigue, No fever, No chills, No sweats, No weight loss, No problem reported Eyes: No worsening of vision, No eye pain, No redness, No discharge, No diplopia ENT: No hearing loss, No unusual epistaxis, No nasal symptoms, No sore throat, No tinnitus, No dental problems, No trouble swallowing Respiratory: No cough, No sputum, No wheezing, No shortness of breath, No dyspnea on exertion, No dyspnea at rest, No hemoptysis Cardiac: No chest pain, No orthopnea, No PND, No edema, No claudication, No palpitations Abdomen: + constipation, No pain, No nausea, No vomiting, No diarrhea Musculoskeletal: No joint pain, No muscle pain, No swelling, No calf pain Male : No dysuria, No urinary frequency, No incontinence, No nocturia more than once/night, No slowing stream, No hematuria Neurologic: No memory loss, No paralysis, No weakness, No numbness/tingling, No vertigo, No balance problems Psychiatric: No depression symptoms, No anhedonism, No anxiety, No insomnia, No substance abuse Heme: No abnormal bleeding/bruising, No clotting problems, No swollen lymph nodes, No night sweats Endo: No fatigue, No excessive thirst, No excessive urination Skin: No rash, No itch, No new/changing skin lesions, No color change, No bleeding Objective Vital Signs Date Time Temp Pulse Resp B/P (MAP) Pulse Ox O2 Delivery O2 Flow Rate FiO2 03/26/18 07:47 100 Room Air 03/26/18 07:41 36.6 61 16 145/87 (106) 100 Room Air 03/26/18 00:15 Room Air 03/25/18 22:55 37.2 60 16 149/82 (104) 99 Room Air Physical Exam General Appearance: WD/WN, no apparent distress Eyes: normal inspection, PERRL, EOMI, sclerae normal ENT: normal ENT inspection, hearing grossly normal, pharynx normal Neck: supple, no adenopathy, thyroid normal, no JVD, no carotid bruits, trachea midline Respiratory/Chest: chest non-tender, lungs clear, normal breath sounds, no respiratory distress, no accessory muscle use Cardiovascular: regular rate, rhythm, no edema, no gallop, no JVD, no murmur Abdomen: normal bowel sounds, non tender, soft, no organomegaly, no pulsatile mass, + pertinent finding (Scrotal area S/P I&D, was packed and dressing,) Extremities: normal range of motion, non-tender, normal inspection, no pedal edema, no calf tenderness, normal capillary refill, pelvis stable Neurologic/Psychiatric: home health outreach coordinator II-XII nml as tested, no motor/sensory deficits, alert, normal mood/affect, oriented x 3 Skin: normal color, warm/dry, no rash Lymphatic: no adenopathy Laboratory Results Last 24 Hours Test 03/26/18 06:11 White Blood Count 10.44 K/uL Red Blood Count 3.56 M/uL Hemoglobin 10.1 g/dL Hematocrit 31.2 % Mean Corpuscular Volume 87.6 fL Mean Corpuscular Hemoglobin 28.4 pg Mean Corpuscular Hemoglobin Concent 32.4 g/dl RDW Standard Deviation 47.9 fL RDW Coefficient of Variation 14.8 % Platelet Count 347 K/uL Mean Platelet Volume 9.5 fL Sodium Level 137 mmol/L Potassium Level 3.9 mmol/L Chloride Level 105 mmol/L Carbon Dioxide Level 24 mmol/L Anion Gap 8.0 mmol/L Blood Urea Nitrogen 14 mg/dl Creatinine 1.01 mg/dl Est Creatinine Clear Calc Drug Dose 105.2 ml/min Estimated GFR () 102.2 Estimated GFR (Non- 88.2 BUN/Creatinine Ratio 13.5 Random Glucose 99 mg/dl Calcium Level 8.5 mg/dl Assessment and Plan 47-year-old nondiabetic male admitted on March 23, 2018 with scrotal perineal abscess Scrotal abscess x 3, s/p Incision and drainage with placement of packing and debridement of tissue with cystoscopy and dilation of stricture and difficult jenkins placement. Procedure was done on March 24, 2018, Postop day 2, urology follow-up, continue wound care: change loose packing (one 4x4) once daily; change surrounding dressing 3x per day or as soiled. Per urologist, do not manipulate Jenkins catheter, will be staying in place for 2 + weeks. Patient needs follow up with reconstruction urologist - Joseluis or Meghan. Urology team called J[facility], spoke with on staff Physician Commanding Officer Garage Nathan, Report states Nathan is familiar with patient. Discussed wound care instructions, importance of maintaining Jenkins catheter, and necessity of referral to reconstruction urologist. Nathan will be arranging referral to Meghan. Corynebacterium jose in abscess culture, infectious disease consulted, at [facility] to [facility] moderate to high risk for DVT, start Lovenox, Pain control be parenteral opiates with oxycodone Continued [facility] stay due to: multiple IV medications needed Discharge planning: home
[2018-03-26] MEDS ORDERED: POLYETHYLENE (MIRALAX) 17 GM PACK PO PRN (15:45)
[2018-03-26 15:50] VITALS: O2SAT 99
[2018-03-26] MEDS ORDERED: DOCUSATE SODIUM 100 MG CAP PO ONE (16:00)
[2018-03-26] MEDS: DOCUSATE SODIUM 100 MG CAP PO SCH (21:38)
[2018-03-27] MEDS: VANCOMYCIN IV 2,000 MG in SODIUM CHLORIDE 0.9% 500ML 500 ML IV SCH ×2 (00:04→11:37)
[2018-03-27] MEDS: HEPARIN SOD 5000 UNIT/0.5 ML CARP SQ SCH ×3 (00:07→17:03)
[2018-03-27] MEDS: PIPERACILL/TAZOBAC IV 3.375 GM in D5W 100ML IV SCH ×3 (05:48→21:44)
[2018-03-27 07:00] VITALS: BP 161/84; PULSE 57; TEMP 36.8; O2SAT 99
[2018-03-27] MEDS: DOCUSATE SODIUM 100 MG CAP PO SCH ×2 (11:09→20:37)
--- NOTE | 2018-03-27 13:04 | Progress Note ---
Subjective Date of Service: Mar 27, 2018. Subjective Pt evaluation today including: conversation w/ patient, physical exam, chart review, lab review, review of studies, conversation w/ database consultant, review of inpatient medication list Voiding: jenkins catheter in place Nursing staff reported having several changes of dressing in the I&D area, suspicious urine came out from the I&D area , patient has Jenkins catheter has good drainage of urine Denies fever and chill, Has been up and walking the hallway Problem List Medical Problems: (1) Pyocele Status: Acute (2) Testicular pain, left Status: Acute (3) Urinary retention Status: Acute Review of Systems Constitutional: + weakness, + fatigue, No fever, No chills, No sweats, No weight loss, No problem reported Eyes: No worsening of vision, No eye pain, No redness, No discharge, No diplopia ENT: No hearing loss, No unusual epistaxis, No nasal symptoms, No sore throat, No tinnitus, No dental problems, No trouble swallowing Respiratory: No cough, No sputum, No wheezing, No shortness of breath, No dyspnea on exertion, No dyspnea at rest, No hemoptysis Cardiac: No chest pain, No orthopnea, No PND, No edema, No claudication, No palpitations Abdomen: No pain, No nausea, No vomiting, No diarrhea, No constipation Musculoskeletal: No joint pain, No muscle pain, No swelling, No calf pain Male : No dysuria, No urinary frequency, No incontinence, No nocturia more than once/night, No slowing stream, No hematuria Neurologic: No memory loss, No paralysis, No weakness, No numbness/tingling, No vertigo, No balance problems Psychiatric: No depression symptoms, No anhedonism, No anxiety, No insomnia, No substance abuse Heme: No abnormal bleeding/bruising, No clotting problems, No swollen lymph nodes, No night sweats Endo: No fatigue, No excessive thirst, No excessive urination Skin: + problem reported (See HPI), No rash, No itch, No new/changing skin lesions, No color change, No bleeding Objective Vital Signs Date Time Temp Pulse Resp B/P (MAP) Pulse Ox O2 Delivery O2 Flow Rate FiO2 03/27/18 08:20 Room Air 03/27/18 07:00 36.8 57 16 161/84 (109) 99 Room Air 03/27/18 00:18 Room Air 03/26/18 15:50 99 Room Air 03/26/18 15:32 36.9 56 18 124/70 (88) 99 Physical Exam General Appearance: WD/WN, no apparent distress Eyes: normal inspection, PERRL, EOMI, sclerae normal ENT: normal ENT inspection, hearing grossly normal, pharynx normal Neck: supple, no adenopathy, thyroid normal, no JVD, no carotid bruits, trachea midline Respiratory/Chest: chest non-tender, lungs clear, normal breath sounds, no respiratory distress, no accessory muscle use Cardiovascular: regular rate, rhythm, no edema, no gallop, no JVD, no murmur Abdomen: normal bowel sounds, non tender, soft, no organomegaly, no pulsatile mass Extremities: normal range of motion, non-tender, normal inspection, no pedal edema, no calf tenderness, normal capillary refill, pelvis stable Neurologic/Psychiatric: refrigerator tester II-XII nml as tested, no motor/sensory deficits, alert, normal mood/affect, oriented x 3 Skin: normal color, warm/dry, no rash Lymphatic: no adenopathy, + pertinent finding (Jenkins catheter in place, popliteal area S/P I&D and dressing,) Assessment and Plan 47-year-old nondiabetic male admitted on March 23, 2018 with scrotal perineal abscess Scrotal abscess x 3, s/p Incision and drainage with placement of packing and debridement of tissue with cystoscopy and dilation of stricture and difficult jenkins placement. Procedure was done on March 24, 2018, Postop day 3, urology follow-up, continue wound care: change loose packing (one 4x4) once daily; change surrounding dressing 3x per day or as soiled. Per urologist, do not manipulate Jenkins catheter, will be staying in place for 2 + weeks. 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 Urology team called Jodi, spoke with on staff Physician Slip Tender Nathan, Report states Nathan is familiar with patient. Discussed wound care instructions, importance of maintaining Jenkins catheter, and necessity of referral to reconstruction urologist. Nathan will be arranging referral to Meghan. Per nursing staff having several changes of dressing in the I&D area, suspicious urine came out from the I&D area , patient has Jenkins catheter has good drainage of urine, suspicious or fistula? Has reported to urologist to follow Corynebacterium gross in abscess culture, infectious disease consulted, at [facility], per infectious disease, need IV antibiotic at least 2 weeks, PICC line consent done, will talk to infectious disease to nail down antibiotic moderate to high risk for DVT, continue heparin Pain control be parenteral opiates with oxycodone [place] [facility] [place] [facility] 2 days, [place] IV infusion in [place] [facility] Continued [facility] stay due to: multiple IV medications needed Discharge planning: home
[2018-03-27 14:54] VITALS: BP 143/80; PULSE 61; TEMP 36.5; O2SAT 100
[2018-03-27 23:45] VITALS: BP 136/77; PULSE 61; TEMP 36.8; O2SAT 100
[2018-03-28] MEDS: VANCOMYCIN IV 2,000 MG in SODIUM CHLORIDE 0.9% 500ML 500 ML IV SCH ×3 (00:01→23:43)
[2018-03-28] MEDS: KETOROLAC TROMETHAMINE 30 MG/ML VIAL IV PRN (00:01)
[2018-03-28] MEDS: HEPARIN SOD 5000 UNIT/0.5 ML CARP SQ SCH ×4 (00:03→23:44)
[2018-03-28] MEDS: PIPERACILL/TAZOBAC IV 3.375 GM in D5W 100ML IV SCH ×3 (05:33→22:18)
[2018-03-28 06:57] LABS: HEMOGLOBIN 10.9 g/dL (14.0-18.0); MEAN CELL VOLUME 87.1 fL (80-100); MEAN CORPUSCULAR HEMOGLOBIN 28.8 pg (25-34); MEAN PLATELET VOLUME 9.3 fL (7.4-10.4); PLATELET COUNT 445 K/uL (130-400); RED CELL DISTRIBUTION WIDTH CV 14.8 % (11.5-14.5); RED CELL DISTRIBUTION WIDTH SD 47.3 fL (36.4-46.3); WHITE BLOOD COUNT 6.99 K/uL (4.8-10.8)
[2018-03-28 07:32] VITALS: BP 136/79; PULSE 57; TEMP 36.7; O2SAT 97
[2018-03-28 07:32] LABS: CALCIUM 8.6 mg/dl (8.5-10.1); CREATININE 1.18 mg/dl (0.60-1.40); POTASSIUM 3.6 mmol/L (3.5-5.1)
[2018-03-28] MEDS: DOCUSATE SODIUM 100 MG CAP PO SCH ×2 (08:58→21:00)
--- NOTE | 2018-03-28 11:22 | Progress Note ---
Progress Note Date of Service Mar 28, 2018. Progress Note Patient examined this morning, denies pain. Wound visualized, appears to be healing well. Alejo catheter remains in place and patent, with continued leakage. Continue wound care, antibiotics, and referral/follow up instructions per last urology progress note. Per my discussion with Jodi WARD this should be reasonable to manage in their infirmbell. Concern for urine in the rectum/fistula, discussed with Dr. Graham. Possible, however patient will need to heal from this infection, I&D/catheter placement for 3-4 weeks before repair would be advisable. Repair would take place with reconstruction urologist at [place]. If desired could collect sample of wound drainage and check Creatinine level, comparing this to urine in the [place]: this information may be useful to [place] , however does not impact his urology plan of care during this hospital stay.
[2018-03-28] MEDS ORDERED: VANCOMYCIN TROUGH ONE (11:30)
--- NOTE | 2018-03-28 12:27 | Pharmacy Progress Note ---
Pharmacy Abx Dose Short Note Date of Service Mar 28, 2018. Assessment & Plan Assessment 47 year old male receiving Zosyn and Vancomcyin for treatment of perineal abscess Day # 6 of Zosyn therapy Day # 3 of Vancomcyin therapy Item Value Date Time Vancomycin Level Trough 17.3 mcg/ml 03/28/18 1137 Plan Vancomycin * Trough level of 17.3 mcg/mL is therapeutic * Continue dose of 2000 mg IV every 12 hours * Goal trough level for abscess : 15 to 20 mcg/mL * Trough or random level ordered for: 03/30/18 @ 1130 Pharmacy will continue to follow and will adjust dose/frequency as necessary. Thank you.
--- NOTE | 2018-03-28 14:27 | Progress Note ---
Subjective Date of Service: Mar 28, 2018. Subjective pt ambulating in halls appears comfortable. afebrile. tolerating abx. all OR cultures with corynebacterium. blood cultures negative. no plans for additional OR here but is planning to follow at [facility] for urologic eval, jenkins to be maintained post d/c. Problem List Medical Problems: (1) Pyocele Status: Acute (2) Testicular pain, left Status: Acute (3) Urinary retention Status: Acute Objective Vital Signs Date Time Temp Pulse Resp B/P (MAP) Pulse Ox O2 Delivery O2 Flow Rate FiO2 03/28/18 08:30 Room Air 03/28/18 07:32 36.7 57 16 136/79 (98) 97 Room Air 03/27/18 23:50 Room Air 03/27/18 23:45 36.8 61 16 136/77 (96) 100 Room Air 03/27/18 15:24 Room Air 03/27/18 14:54 36.5 61 18 143/80 (101) 100 Room Air Physical Exam General Appearance: WD/WN, no apparent distress Neck: supple Respiratory/Chest: no respiratory distress Neurologic/Psychiatric: alert Skin: normal color Laboratory Results Item Value Date Time Gram Stain - Final Resulted 03/24/18822 Abscess Scrotum Gram Stain - Final Resulted 03/24/18822 Abscess Scrotum Gram Stain - Final Resulted 03/24/18822 Tissue Scrotum Blood Culture - Preliminary Resulted 03/23/18 1445 Blood NO GROWTH TO DATE. Blood Culture - Preliminary Resulted 03/23/18 1444 Blood NO GROWTH TO DATE. Gram Stain - Final Resulted 03/24/18822 Abscess Scrotum Gram Stain - Final Resulted 03/24/18822 Abscess Scrotum Gram Stain - Final Resulted 03/24/18822 Tissue Scrotum Last 24 Hours Test 03/28/18 06:11 03/28/18 11:37 White Blood Count 6.99 K/uL Red Blood Count 3.79 M/uL Hemoglobin 10.9 g/dL Hematocrit 33.0 % Mean Corpuscular Volume 87.1 fL Mean Corpuscular Hemoglobin 28.8 pg Mean Corpuscular Hemoglobin Concent 33.0 g/dl RDW Standard Deviation 47.3 fL RDW Coefficient of Variation 14.8 % Platelet Count 445 K/uL Mean Platelet Volume 9.3 fL Sodium Level 139 mmol/L Potassium Level 3.6 mmol/L Chloride Level 107 mmol/L Carbon Dioxide Level 25 mmol/L Anion Gap 7.0 mmol/L Blood Urea Nitrogen 10 mg/dl Creatinine 1.18 mg/dl Est Creatinine Clear Calc Drug Dose 90.1 ml/min Estimated GFR () 84.7 Estimated GFR (Non- 73.0 BUN/Creatinine Ratio 8.8 Random Glucose 101 mg/dl Calcium Level 8.6 mg/dl Vancomycin Level Trough 17.3 mcg/ml Assessment and Plan (1) Perineal abscess Assessment & Plan: continue current abx. will need min 14 days. will need weekly cbc, cmp, vanco trough maintain 15-20 Continued [facility] stay due to: multiple IV medications needed Discharge planning: home
[2018-03-28 14:55] VITALS: BP 134/73; PULSE 59; TEMP 36.7; O2SAT 96
--- NOTE | 2018-03-28 16:45 | Progress Note ---
Subjective Date of Service: Mar 28, 2018. Subjective Pt evaluation today including: conversation w/ patient, conversation w/ family , physical exam Generally doing okay , no spiking fever, nursing staff reported need to have 6 time dressing changes yesterday because a lot of drainage is coming out , however overnight has been better, only two time overnight Problem List Medical Problems: (1) Pyocele Status: Acute (2) Testicular pain, left Status: Acute (3) Urinary retention Status: Acute Review of Systems Constitutional: No fever, No chills, No sweats, No weight loss, No weakness, No fatigue, No problem reported Eyes: No worsening of vision, No eye pain, No redness, No discharge, No diplopia ENT: No hearing loss, No unusual epistaxis, No nasal symptoms, No sore throat, No tinnitus, No dental problems, No trouble swallowing Respiratory: No cough, No sputum, No wheezing, No shortness of breath, No dyspnea on exertion, No dyspnea at rest, No hemoptysis Cardiac: No chest pain, No orthopnea, No PND, No edema, No claudication, No palpitations Abdomen: No pain, No nausea, No vomiting, No diarrhea, No constipation Musculoskeletal: No joint pain, No muscle pain, No swelling, No calf pain Male : No dysuria, No urinary frequency, No incontinence, No nocturia more than once/night, No slowing stream, No hematuria Neurologic: No memory loss, No paralysis, No weakness, No numbness/tingling, No vertigo, No balance problems Psychiatric: No depression symptoms, No anhedonism, No anxiety, No insomnia, No substance abuse Heme: No abnormal bleeding/bruising, No clotting problems, No swollen lymph nodes, No night sweats Endo: No fatigue, No excessive thirst, No excessive urination Skin: + problem reported (Perineal wounds,), No itch, No new/changing skin lesions, No color change, No bleeding Objective Vital Signs Date Time Temp Pulse Resp B/P (MAP) Pulse Ox O2 Delivery O2 Flow Rate FiO2 03/28/18 14:55 36.7 59 16 134/73 (93) 96 03/28/18 08:30 Room Air 03/28/18 07:32 36.7 57 16 136/79 (98) 97 Room Air 03/27/18 23:50 Room Air 03/27/18 23:45 36.8 61 16 136/77 (96) 100 Room Air Physical Exam General Appearance: WD/WN, no apparent distress Eyes: normal inspection, PERRL, EOMI, sclerae normal ENT: normal ENT inspection, hearing grossly normal, pharynx normal Neck: supple, no adenopathy, thyroid normal, no JVD, no carotid bruits, trachea midline Respiratory/Chest: chest non-tender, lungs clear, normal breath sounds, no respiratory distress, no accessory muscle use Cardiovascular: regular rate, rhythm, no edema, no gallop, no JVD, no murmur Abdomen: normal bowel sounds, non tender, soft, no organomegaly, no pulsatile mass, + pertinent finding (Jenkins catheter in place) Extremities: normal range of motion, non-tender, normal inspection, no pedal edema, no calf tenderness, normal capillary refill, pelvis stable Neurologic/Psychiatric: coastal/harbor defense officer II-XII nml as tested, no motor/sensory deficits, alert, normal mood/affect, oriented x 3 Skin: normal color, warm/dry, no rash Lymphatic: no adenopathy, + pertinent finding (Perineal area wound in dressing) Laboratory Results Last 24 Hours Test 03/28/18 06:11 03/28/18 11:37 White Blood Count 6.99 K/uL Red Blood Count 3.79 M/uL Hemoglobin 10.9 g/dL Hematocrit 33.0 % Mean Corpuscular Volume 87.1 fL Mean Corpuscular Hemoglobin 28.8 pg Mean Corpuscular Hemoglobin Concent 33.0 g/dl RDW Standard Deviation 47.3 fL RDW Coefficient of Variation 14.8 % Platelet Count 445 K/uL Mean Platelet Volume 9.3 fL Sodium Level 139 mmol/L Potassium Level 3.6 mmol/L Chloride Level 107 mmol/L Carbon Dioxide Level 25 mmol/L Anion Gap 7.0 mmol/L Blood Urea Nitrogen 10 mg/dl Creatinine 1.18 mg/dl Est Creatinine Clear Calc Drug Dose 90.1 ml/min Estimated GFR () 84.7 Estimated GFR (Non- 73.0 BUN/Creatinine Ratio 8.8 Random Glucose 101 mg/dl Calcium Level 8.6 mg/dl Vancomycin Level Trough 17.3 mcg/ml Assessment and Plan 47-year-old nondiabetic male admitted on March 23, 2018 with scrotal perineal abscess Scrotal abscess x 3, s/p Incision and drainage with placement of packing and debridement of tissue with cystoscopy and dilation of stricture and difficult jenkins placement. Procedure was done on March 24, 2018, Postop day 4, urology follow-up, continue wound care: change loose packing (one 4x4) once daily; change surrounding dressing 3x per day or as soiled. Per urologist, do not manipulate Jenkins catheter, will be staying in place for 2 + weeks. 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 Urology team called Jodi, spoke with on staff Physician Core Inserter Nathan, Report states Nathan is familiar with patient. Discussed wound care instructions, importance of maintaining Jenkins catheter, and necessity of referral to reconstruction urologist. Nathan will be arranging referral to [place]. Per nursing staff having several changes of dressing in the I&D area, suspicious urine came out from the I&D area , patient has Jenkins catheter has good drainage of urine, suspicious or fistula? Has reported to urologist to follow per , Concern for urine in the rectum/fistula, discussed with Dr. Graham. Possible, however patient will need to heal from this infection, I&D/catheter placement for 3-4 weeks before repair would be advisable. Repair would take place with reconstruction urologist at [place]. Corynebacterium gross in abscess culture, infectious disease consulted, at [facility], per infectious disease, need IV antibiotic at least 2 weeks, PICC line consent done, will order, per ID: will need min 14 days. will need weekly cbc, cmp, vanco trough maintain 15-20 moderate to high risk for DVT, continue heparin Pain control be parenteral opiates with oxycodone Possible discharge to [facility] in 1 or 2 days, continue IV infusion in [facility] Continued [facility] stay due to: multiple IV medications needed Discharge planning: home
[2018-03-28 23:44] VITALS: BP 134/74; PULSE 62; TEMP 37; O2SAT 97
[2018-03-29] MEDS: OXYCODONE HCL IR 5 MG TAB (IMMEDIATE RELEASE) PO PRN (03:59)
[2018-03-29] MEDS: PIPERACILL/TAZOBAC IV 3.375 GM in D5W 100ML IV SCH ×3 (05:46→21:45)
[2018-03-29 07:35] VITALS: O2SAT 97
[2018-03-29 07:56] VITALS: BP 145/72; PULSE 58; TEMP 36.4; O2SAT 97
[2018-03-29] MEDS: HEPARIN SOD 5000 UNIT/0.5 ML CARP SQ SCH ×3 (08:22→23:40)
[2018-03-29] MEDS: DOCUSATE SODIUM 100 MG CAP PO SCH ×2 (08:24→20:45)
[2018-03-29] MEDS: VANCOMYCIN IV 2,000 MG in SODIUM CHLORIDE 0.9% 500ML 500 ML IV SCH ×2 (12:13→23:39)
[2018-03-29 15:32] VITALS: BP 160/84; PULSE 64; TEMP 36.9; O2SAT 99
--- NOTE | 2018-03-29 16:11 | Progress Note ---
Subjective Date of Service: Mar 29, 2018. Subjective Pt evaluation today including: conversation w/ patient, conversation w/ family , physical exam, chart review, lab review, review of studies, conversation w/ work and family life consultant, review of inpatient medication list Voiding: jenkins catheter in place Continue doing fair, generally improving, denies spiking fever Problem List Medical Problems: (1) Pyocele Status: Acute (2) Testicular pain, left Status: Acute (3) Urinary retention Status: Acute Review of Systems Constitutional: + weakness, + fatigue, No fever, No chills, No sweats, No weight loss, No problem reported Eyes: No worsening of vision, No eye pain, No redness, No discharge, No diplopia ENT: No hearing loss, No unusual epistaxis, No nasal symptoms, No sore throat, No tinnitus, No dental problems, No trouble swallowing Respiratory: No cough, No sputum, No wheezing, No shortness of breath, No dyspnea on exertion, No dyspnea at rest, No hemoptysis Cardiac: No chest pain, No orthopnea, No PND, No edema, No claudication, No palpitations Abdomen: No pain, No nausea, No vomiting, No diarrhea, No constipation Musculoskeletal: No joint pain, No muscle pain, No swelling, No calf pain Male : No dysuria, No urinary frequency, No incontinence, No nocturia more than once/night, No slowing stream, No hematuria Neurologic: No memory loss, No paralysis, No weakness, No numbness/tingling, No vertigo, No balance problems Psychiatric: No depression symptoms, No anhedonism, No anxiety, No insomnia, No substance abuse Heme: No abnormal bleeding/bruising, No clotting problems, No swollen lymph nodes, No night sweats Endo: No fatigue, No excessive thirst, No excessive urination Skin: + problem reported (Perineal area skin is addressed,), No rash, No itch, No new/changing skin lesions, No color change, No bleeding Objective Vital Signs Date Time Temp Pulse Resp B/P (MAP) Pulse Ox O2 Delivery O2 Flow Rate FiO2 03/29/18 15:32 36.9 64 20 160/84 (109) 99 Room Air 03/29/18 07:56 36.4 58 17 145/72 (96) 97 Room Air 03/29/18 07:35 97 Room Air 03/28/18 23:45 Room Air 03/28/18 23:44 37.0 62 16 134/74 (94) 97 Room Air Physical Exam General Appearance: WD/WN, no apparent distress Eyes: normal inspection, PERRL, EOMI, sclerae normal ENT: normal ENT inspection, hearing grossly normal, pharynx normal Neck: supple, no adenopathy, thyroid normal, no JVD, no carotid bruits, trachea midline Respiratory/Chest: chest non-tender, lungs clear, normal breath sounds, no respiratory distress, no accessory muscle use Cardiovascular: regular rate, rhythm, no edema, no gallop, no JVD, no murmur Abdomen: normal bowel sounds, non tender, soft, no organomegaly, no pulsatile mass, + pertinent finding (Jenkins catheter in place,) Extremities: normal range of motion, non-tender, normal inspection, no pedal edema, no calf tenderness, normal capillary refill, pelvis stable Neurologic/Psychiatric: vice president investor relations II-XII nml as tested, no motor/sensory deficits, alert, normal mood/affect, oriented x 3 Skin: normal color, warm/dry, no rash, + pertinent finding (Perineal area skin is in dress) Lymphatic: no adenopathy Assessment and Plan 47-year-old nondiabetic male admitted on March 23, 2018 with scrotal perineal abscess Scrotal abscess x 3, s/p Incision and drainage with placement of packing and debridement of tissue with cystoscopy and dilation of stricture and difficult jenkins placement. Procedure was done on March 24, 2018, Postop day 5, urology follow-up, continue wound care: change loose packing (one 4x4) once daily; change surrounding dressing 3x per day or as soiled. Per urologist, do not manipulate Jenkins catheter, will be staying in place for 2 + weeks. 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 Urology team called [facility], spoke with on staff Physician Coke Drawer Nathan, Report states Nathan is familiar with patient. Discussed wound care instructions, importance of maintaining Jenkins catheter, and necessity of referral to reconstruction urologist. Nathan will be arranging referral to [facility]. Per nursing staff having several changes of dressing in the I&D area, suspicious urine came out from the I&D area , patient has Jenkins catheter has good drainage of urine, suspicious or fistula? per , Concern for urine in the rectum/fistula, discussed with Dr. Graham. Possible, however patient will need to heal from this infection, I&D/catheter placement for 3-4 weeks before repair would be advisable. Repair would take place with reconstruction urologist at [place]. Corynebacterium gross in abscess culture, infectious disease consulted, at [facility] angella Mata, per infectious disease, need IV antibiotic at least 2 weeks, PICC line consent done, will order, per ID: will need min 14 days. will need weekly cbc, cmp, vanco trough maintain 15-20 moderate to high risk for DVT, continue heparin Pain control be parenteral opiates with oxycodone Part of nursing home, and respond that they will order current medication of IV antibiotics and the medicine will be ready for tomorrow for patient to use condom, therefore they request that we discharge him tomorrow instead of today I agree Continued [facility] stay due to: multiple IV medications needed Discharge planning: home
[2018-03-29 22:53] VITALS: BP 158/84; PULSE 64; TEMP 37.2; O2SAT 96
[2018-03-30] MEDS: PIPERACILL/TAZOBAC IV 3.375 GM in D5W 100ML IV SCH ×2 (05:43→21:43)
[2018-03-30 06:10] LABS: HEMATOCRIT 33.5 % (42-52); HEMOGLOBIN 10.8 g/dL (14.0-18.0); MEAN CELL VOLUME 88.4 fL (80-100); MEAN CORPUSCULAR HEMOGLOBIN 28.5 pg (25-34); MEAN CORPUSCULAR HGB CONC 32.2 g/dl (32-36); MEAN PLATELET VOLUME 9.4 fL (7.4-10.4); PLATELET COUNT 443 K/uL (130-400); RED CELL DISTRIBUTION WIDTH CV 15.2 % (11.5-14.5); RED CELL DISTRIBUTION WIDTH SD 48.6 fL (36.4-46.3); WHITE BLOOD COUNT 9.58 K/uL (4.8-10.8)
[2018-03-30 06:49] LABS: CALCIUM 8.8 mg/dl (8.5-10.1); CREATININE 4.6 mg/dl (0.60-1.40)
[2018-03-30 07:26] VITALS: BP 160/90; PULSE 68; TEMP 36.7; O2SAT 97
[2018-03-30] MEDS ORDERED: HydrALAZINE HCL 20 MG/ML VIAL IV. PRN (07:45)
[2018-03-30 08:00] VITALS: O2SAT 97
[2018-03-30 08:05] VITALS: BP 156/82
[2018-03-30] MEDS: HEPARIN SOD 5000 UNIT/0.5 ML CARP SQ SCH ×3 (08:10→23:33)
[2018-03-30] MEDS: DOCUSATE SODIUM 100 MG CAP PO SCH ×2 (08:11→21:00)
[2018-03-30 08:34] LABS: CALCIUM 8.9 mg/dl (8.5-10.1); CREATININE 4.81 mg/dl (0.60-1.40); POTASSIUM 4.2 mmol/L (3.5-5.1)
[2018-03-30] MEDS ORDERED: SODIUM CHLORIDE 0.9% 1000ML 1,000 ML IV ONE (08:45)
--- NOTE | 2018-03-30 09:21 | Pharmacy Progress Note ---
Pharmacy Abx Dose Short Note Date of Service Mar 30, 2018. Assessment & Plan Item Value Date Time Creatinine 4.81 mg/dl *H 03/30/18 0756 Creatinine 4.60 mg/dl *H # 03/30/18 0522 Creatinine 1.18 mg/dl 03/28/18 0611 Creatinine 1.01 mg/dl 03/26/18 0611 Est Creatinine Clear Calc Drug Dose 22.1 ml/min 03/30/18 0756 Est Creatinine Clear Calc Drug Dose 23.1 ml/min 03/30/18 0522 Est Creatinine Clear Calc Drug Dose 90.1 ml/min 03/28/18 06 Est Creatinine Clear Calc Drug Dose 105.2 ml/min 03/26/18 0611 Assessment 47 year old male receiving IV Vancomycin and Zosyn for treatment of scrotal and perianal abscesses. Day # 8 of Zosyn, Day 5 of Vancomycin, ID consult, Dr Hammond recommends at least 14 days antimicrobial therapy. Pt w/ WAI at this time - will hold Vancomycin and order random with AM labs, last dose was [address] Sawant treating patient with IV fluids and renal US at this time, and would like to continue Zosyn. Change Zosyn dosing for WAI. Plan Vancomycin - HOLD dose * Goal trough level for scrotal and perianal abscesses: 15 to 20 mcg/mL * Random level ordered for: 03/31/18 prior with AM labs Zosyn: * Change dosing to 3.375g IV Q12H extended infusion protocol for CrCl < 20ml/min Pharmacy will continue to follow and will adjust dose/frequency as necessary. Thank you.
--- NOTE | 2018-03-30 10:06 | Progress Note ---
Subjective Date of Service: Mar 30, 2018. Subjective Pt evaluation today including: conversation w/ patient, physical exam, chart review, lab review, review of studies, conversation w/ business analyst consultant, review of inpatient medication list Voiding: jenkins catheter in place has been continue doing dress changes in the wound, otherwise doing ok, no c/o Problem List Medical Problems: (1) Pyocele Status: Acute (2) Testicular pain, left Status: Acute (3) Urinary retention Status: Acute Review of Systems Constitutional: + weakness, + fatigue, No fever, No chills, No sweats, No weight loss, No problem reported Eyes: No worsening of vision, No eye pain, No redness, No discharge, No diplopia ENT: No hearing loss, No unusual epistaxis, No nasal symptoms, No sore throat, No tinnitus, No dental problems, No trouble swallowing Respiratory: No cough, No sputum, No wheezing, No shortness of breath, No dyspnea on exertion, No dyspnea at rest, No hemoptysis Cardiac: No chest pain, No orthopnea, No PND, No edema, No claudication, No palpitations Abdomen: No pain, No nausea, No vomiting, No diarrhea, No constipation Musculoskeletal: No joint pain, No muscle pain, No swelling, No calf pain Male : No dysuria, No urinary frequency, No incontinence, No nocturia more than once/night, No slowing stream, No hematuria Neurologic: No memory loss, No paralysis, No weakness, No numbness/tingling, No vertigo, No balance problems Psychiatric: No depression symptoms, No anhedonism, No anxiety, No insomnia, No substance abuse Heme: No abnormal bleeding/bruising, No clotting problems, No swollen lymph nodes, No night sweats Endo: No fatigue, No excessive thirst, No excessive urination Skin: No rash, No itch, No new/changing skin lesions, No color change, No bleeding Objective Vital Signs Date Time Temp Pulse Resp B/P (MAP) Pulse Ox O2 Delivery O2 Flow Rate FiO2 03/30/18 08:05 156/82 (106) 03/30/18 08:00 97 Room Air 03/30/18 07:26 36.7 68 15 160/90 (113) 97 Room Air 03/29/18 23:45 Room Air 03/29/18 22:53 37.2 64 18 158/84 (108) 96 Room Air 03/29/18 16:00 Room Air 03/29/18 15:32 36.9 64 20 160/84 (109) 99 Room Air Physical Exam General Appearance: WD/WN, no apparent distress Eyes: normal inspection, PERRL, EOMI, sclerae normal ENT: normal ENT inspection, hearing grossly normal, pharynx normal Neck: supple, no adenopathy, thyroid normal, no JVD, no carotid bruits, trachea midline Respiratory/Chest: chest non-tender, lungs clear, normal breath sounds, no respiratory distress, no accessory muscle use Cardiovascular: regular rate, rhythm, no edema, no gallop, no JVD, no murmur Abdomen: normal bowel sounds, non tender, soft, no organomegaly, no pulsatile mass, + pertinent finding (jenkins in place with clean urine, ) Extremities: normal range of motion, non-tender, normal inspection, no pedal edema, no calf tenderness, normal capillary refill, pelvis stable Neurologic/Psychiatric: senior occupational therapist II-XII nml as tested, no motor/sensory deficits, alert, normal mood/affect, oriented x 3 Skin: normal color, warm/dry, no rash, + pertinent finding (perineal area is dress) Lymphatic: no adenopathy Laboratory Results Last 24 Hours Test 03/30/18 05:22 03/30/18 07:56 03/30/18 09:53 White Blood Count 9.58 K/uL Red Blood Count 3.79 M/uL Hemoglobin 10.8 g/dL Hematocrit 33.5 % Mean Corpuscular Volume 88.4 fL Mean Corpuscular Hemoglobin 28.5 pg Mean Corpuscular Hemoglobin Concent 32.2 g/dl RDW Standard Deviation 48.6 fL RDW Coefficient of Variation 15.2 % Platelet Count 443 K/uL Mean Platelet Volume 9.4 fL Sodium Level 142 mmol/L 142 mmol/L Potassium Level 4.0 mmol/L 4.2 mmol/L Chloride Level 108 mmol/L 108 mmol/L Carbon Dioxide Level 27 mmol/L 26 mmol/L Anion Gap 7.0 mmol/L 8.0 mmol/L Blood Urea Nitrogen 23 mg/dl 24 mg/dl Creatinine 4.60 mg/dl 4.81 mg/dl Est Creatinine Clear Calc Drug Dose 23.1 ml/min 22.1 ml/min Estimated GFR () 16.3 15.5 Estimated GFR (Non- 14.1 13.4 BUN/Creatinine Ratio 5.0 4.9 Random Glucose 97 mg/dl 98 mg/dl Calcium Level 8.8 mg/dl 8.9 mg/dl Assessment and Plan 47-year-old nondiabetic male admitted on March 23, 2018 with scrotal perineal abscess s/P I&D, developed acute renal failure today Scrotal abscess s/p Incision and drainage with placement of packing and debridement of tissue with cystoscopy and dilation of stricture and difficult jenkins placement. Procedure was done on March 24, 2018, Postop day 6, urology follow-up, continue wound care: change loose packing (one 4x4) once daily; change surrounding dressing 3x per day or as soiled. Per urologist, do not manipulate Jenkins catheter, will be staying in place for 2 + weeks. 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 Urology team called [facility], spoke with on staff Physician Retail Banker Nathan, Report states Nathan is familiar with patient. Discussed wound care instructions, importance of maintaining Jenkins catheter, and necessity of referral to reconstruction urologist. Nathan will be arranging referral to [facility]. Per nursing staff having several changes of dressing in the I&D area, suspicious urine came out from the I&D area , patient has Jenkins catheter has good drainage of urine, suspicious or fistula? per , Concern for urine in the rectum/fistula, discussed with Dr. Graham. Possible, however patient will need to heal from this infection, I&D/catheter placement for 3-4 weeks before repair would be advisable. Repair would take place with reconstruction urologist at [facility]. Corynebacterium gross in abscess culture, infectious disease consulted, at [facility] ang[facility], per infectious disease, need IV antibiotic at least 2 weeks, PICC line inserted on 03/19/2018 per ID: will need min 14 days. will need weekly cbc, cmp, vanco trough maintain 15-20 moderate to high risk acute kidney failure: renal,post renal or prerenal, avoid all kidney offensive meds, IVF, check renal US, talked to mineral engineer Pain control be parenteral opiates with oxycodone Part of intermediate, they have ordered current medication of IV antibiotics and the medicine will be ready for pt to be arriving Continued [facility] stay due to: multiple IV medications needed Discharge planning: home
--- NOTE | 2018-03-30 10:18 | Nephrology Consultation ---
Nephrology Consultation Date & Providers Date of Consultation: Mar 30, 2018. Primary Care Provider: [facility] Referring Provider: Reason for Consultation WAI History of Present Illness Fredis Dumont is a 47-year-old nondiabetic male admitted on March 23, 2018 with scrotal perineal abscess. The patient is an inmate at [facility]. Serum creatinine was 1.0 mg/dL on March 28. Today, creatinine was checked and found to be >4.5 mg/dL. The patient is non oliguric. Alejo draining clear yellow urine. BP stable. No fevers or chills. No new medications in past 24 hours. Incision and drainage with placement of packing and debridement of tissue was performed on March 24. Cultures have grown Corynebacterium. Antibiotic coverage has been provided with vancomycin and Zosyn. Vancomycin level on March 28 was 17. At the time of surgery, the urethra required dilation and Alejo placement was performed. Alejo to remains intact until reconstruction can be performed after treatment of infection. There has been concern for possible colovesicular fistula. Current plan of care included indwelling Alejo catheter, 14 days of vancomycin and Zosyn and follow up with reconstructive once antibiotics complete. The patient has chronic stable anemia. Metabolic profile is notable for WAI but otherwise appropriate. There has not been any notable NSAID use. Past Medical/Surgical History Medical: Perineal abscess Surgical: I&D, ureteral dilation Allergies Coded Allergies: No Known Allergies (Unverified , 02/01/18) Inpatient Medications Current Inpatient Medications Medications (Trade) Dose Ordered Sig/Fabrizio Route Start Time Stop Time Status Last Admin Dose Admin Heparin Sodium (Porcine) (Heparin Sq 5000 Unit/0.5ml) 5,000 unit Q8H SQ 03/24/18 08:00 04/23/18 07:59 03/30/18 08:10 5,000 UNIT Al Hydrox/Mg Hydrox/Simethicone (Maalox Max Susp) 15 ml Q4H PRN PO 03/23/18 14:15 04/22/18 14:14 Magnesium Hydroxide (Milk Of Magnesia Susp) 30 ml Q6H PRN PO 03/23/18 14:15 04/22/18 14:14 03/25/18 12:55 30 ML Ondansetron HCl (Zofran Inj) 4 mg Q6H PRN IV 03/23/18 14:15 04/22/18 14:14 8/15/18 19:47 4 MG Miscellaneous Information (Consult) 1 UD PRN N/A 03/23/18 14:15 04/22/18 14:14 Oxycodone HCl (Roxicodone Immediate Rel Tab) 10 mg Q6 PRN PO 03/23/18 14:15 04/06/18 14:14 03/29/18 03:59 10 MG Morphine Sulfate (MoRPHine SULFATE INJ) 2 mg Q4H PRN IV 03/23/18 14:15 04/06/18 14:14 Morphine Sulfate (MoRPHine SULFATE INJ) 4 mg Q4H PRN IV 03/23/18 14:15 04/06/18 14:14 03/24/18 05:46 4 MG Acetaminophen (Tylenol Tab) 1,000 mg Q6H PRN PO 03/23/18 14:45 04/22/18 14:44 03/28/18 02:13 1,000 MG Piperacillin Sod/ Tazobactam Sod 3.375 gm/Dextrose 115 ml @ 28.75 mls/ hr Q8 IV 03/23/18 22:00 03/30/18 10:15 Future hold 03/30/18 05:43 28.75 MLS/HR Vancomycin HCl 2000 mg/Sodium Chloride 540 ml @ 200 mls/hr Q12H IV 03/27/18 00:00 04/05/18 11:59 Future Hold 03/29/18 23:39 200 MLS/HR Vancomycin HCl (Consult) 1 [facility] PRN N/A 03/26/18 12:00 04/25/18 11:59 Docusate Sodium (coLACE CAP) 100 mg BID PO 03/26/18 21:00 04/25/18 20:59 03/30/18 08:11 100 MG Polyethylene (Miralax Powder Packet) 17 gm DAILY PRN PO 03/26/18 15:45 04/25/18 15:44 Heparin Sodium (Porcine) (Heparin 10 Unit/ ml 5 ml Flush) 5 ml PRN PRN FLUSH 03/29/18 10:15 04/28/18 10:14 03/30/18 01:56 5 ML Hydralazine HCl (HydrALAZINE INJ) 20 mg Q6 PRN IV. 03/30/18 07:45 04/29/18 07:44 Sodium Chloride 1,000 ml @ 150 mls/hr Q6H40M IV 03/30/18 09:15 04/29/18 09:14 Sodium Chloride 1,000 ml @ 500 mls/hr Q2H ONCE IV 03/30/18 08:45 03/30/18 10:44 03/30/18 09:05 500 MLS/HR Piperacillin Sod/ Tazobactam Sod 3.375 gm/Dextrose 115 ml @ 28.75 mls/ hr Q12H IV 03/30/18 22:00 04/09/18 21:59 Family History Diabetes mellitus Social History Smoking Status: Never Smoker Occupation: other Review of Systems A complete review of systems was performed. Pertinent positives are noted above. All other systems are negative. Physical Exam Date Time Temp Pulse Resp B/P (MAP) Pulse Ox O2 Delivery O2 Flow Rate FiO2 03/30/18 08:05 156/82 (106) 03/30/18 08:00 97 Room Air 03/30/18 07:26 36.7 68 15 160/90 (113) 97 Room Air 03/29/18 23:45 Room Air 03/29/18 22:53 37.2 64 18 158/84 (108) 96 Room Air 03/29/18 16:00 Room Air 03/29/18 15:32 36.9 64 20 160/84 (109) 99 Room Air General Appearance: WD/WN, no apparent distress Head: normocephalic, atraumatic Eyes: normal inspection, sclerae normal ENT: normal ENT inspection, pharynx normal Neck: supple, no JVD Respiratory/Chest: lungs clear, no respiratory distress, no accessory muscle use Cardiovascular: regular rate, rhythm, no gallop Abdomen/GI: non tender, soft Genitourinary - Male: + pertinent finding (Alejo) Back: no CVA tenderness Neurologic/Psych: alert, normal mood/affect Skin: normal color Laboratory Results Last 24 Hours Test 03/30/18 05:22 03/30/18 07:56 03/30/18 09:53 White Blood Count 9.58 K/uL Red Blood Count 3.79 M/uL Hemoglobin 10.8 g/dL Hematocrit 33.5 % Mean Corpuscular Volume 88.4 fL Mean Corpuscular Hemoglobin 28.5 pg Mean Corpuscular Hemoglobin Concent 32.2 g/dl RDW Standard Deviation 48.6 fL RDW Coefficient of Variation 15.2 % Platelet Count 443 K/uL Mean Platelet Volume 9.4 fL Sodium Level 142 mmol/L 142 mmol/L Potassium Level 4.0 mmol/L 4.2 mmol/L Chloride Level 108 mmol/L 108 mmol/L Carbon Dioxide Level 27 mmol/L 26 mmol/L Anion Gap 7.0 mmol/L 8.0 mmol/L Blood Urea Nitrogen 23 mg/dl 24 mg/dl Creatinine 4.60 mg/dl 4.81 mg/dl Est Creatinine Clear Calc Drug Dose 23.1 ml/min 22.1 ml/min Estimated GFR () 16.3 15.5 Estimated GFR (Non- 14.1 13.4 BUN/Creatinine Ratio 5.0 4.9 Random Glucose 97 mg/dl 98 mg/dl Calcium Level 8.8 mg/dl 8.9 mg/dl Impression (1) Acute kidney injury (2) Ureteral stricture (3) Perineal abscess Fredis is a non-diabetic 47-year-old male with a ureteral stricture and perineal abscess. He is being treated with vancomycin and Zosyn with a plan for reconstructive surgery as an outpatient. He has non-oliguric WAI. BP and volume status are appropriate. Metabolic profile is acceptable. There is no current indication for dialysis. Clinically the rate of rise of creatinine is suggestive of obstruction. A renal US is pending. Certainly, ATN is possible and possible vancomycin nephropathy but the acuity is atypical. In additional to pending US, a UA/microscopy has been requested. I&O's will be documented and metabolic profile repeated this afternoon. Vancomycin has been appropriately held and Zosyn renally adjusted. NSAIDS have been avoided.
--- NOTE | 2018-03-30 10:28 | DIAGNOSTIC IMAGING REPORT ---
(CHRIS/BLAD)RETROPERITON COMP CLINICAL HISTORY: 47 years-old Male presenting with acute renal failure, hx of urethra stricture, ?hydro?. TECHNIQUE: Real-time grayscale and limited color Doppler ultrasound imaging of the kidneys and bladder was performed. COMPARISON: Pelvis CT 03/23/2018. FINDINGS: Right kidney: Increased echogenicity of renal parenchyma. Small amount of perinephric fluid at the lower pole. Right kidney measures 12.3 cm. No hydronephrosis. No convincing evidence of calculus or mass. Left kidney: Increased echogenicity of renal parenchyma. Trace amount of perinephric fluid at the lower pole. Left kidney measures 11.9 cm. No hydronephrosis. No convincing evidence of calculus or mass. Bladder: Mild circumferential bladder wall thickening. Although a Alejo catheter is in place, the balloon is not located within the bladder lumen but rather in the prostate. Bilateral ureteral jets present. Other: None. IMPRESSION: 1. Alejo balloon is inflated in the prostate. This requires repositioning. 2. No hydronephrosis. 3. Medical renal disease. The report will be called/faxed according to standard departmental protocol. Electronically signed by: Severino Pearce M.D. 03/30/2018 10:27 AM Dictated Date/Time: 03/30/2018 10:23 AM
--- NOTE | 2018-03-30 10:54 | Progress Note ---
Subjective Date of Service: Mar 30, 2018. Subjective Pt evaluation today including: conversation w/ patient, physical exam, chart review, lab review, conversation w/ optimization consultant, review of inpatient medication list pt seen in followup, now with acute rise in creat. nephro involved. some abd pressure today. ultrasound with perinephric fluid and balloon in prostate gland. jenkins remains, making urine, clear. no blood. vanco on hold due to increased creat. wbc nml. afebrile. no pain at wound site. dressing intact .all remaining ros reviewed and are negative. Problem List Medical Problems: (1) Pyocele Status: Acute (2) Testicular pain, left Status: Acute (3) Urinary retention Status: Acute Objective Vital Signs Date Time Temp Pulse Resp B/P (MAP) Pulse Ox O2 Delivery O2 Flow Rate FiO2 03/30/18 08:05 156/82 (106) 03/30/18 08:00 97 Room Air 03/30/18 07:26 36.7 68 15 160/90 (113) 97 Room Air 03/29/18 23:45 Room Air 03/29/18 22:53 37.2 64 18 158/84 (108) 96 Room Air 03/29/18 16:00 Room Air 03/29/18 15:32 36.9 64 20 160/84 (109) 99 Room Air Physical Exam General Appearance: WD/WN, no apparent distress Eyes: normal inspection, EOMI Neck: supple Respiratory/Chest: lungs clear, normal breath sounds, no respiratory distress Cardiovascular: regular rate, rhythm, no edema Abdomen: non tender, soft Extremities: non-tender, no pedal edema Neurologic/Psychiatric: alert, oriented x 3 Skin: normal color Laboratory Results Item Value Date Time Gram Stain - Final Complete 03/24/18 0823 Abscess Scrotum Gram Stain - Final Complete 03/24/18 0823 Abscess Scrotum Gram Stain - Final Resulted 03/24/18 0823 Tissue Scrotum Vancomycin Level Trough 17.3 mcg/ml 03/28/18 1137 Last 24 Hours Test 03/30/18 05:22 03/30/18 07:56 03/30/18 09:53 03/30/18 10:30 White Blood Count 9.58 K/uL Red Blood Count 3.79 M/uL Hemoglobin 10.8 g/dL Hematocrit 33.5 % Mean Corpuscular Volume 88.4 fL Mean Corpuscular Hemoglobin 28.5 pg Mean Corpuscular Hemoglobin Concent 32.2 g/dl RDW Standard Deviation 48.6 fL RDW Coefficient of Variation 15.2 % Platelet Count 443 K/uL Mean Platelet Volume 9.4 fL Sodium Level 142 mmol/L 142 mmol/L Potassium Level 4.0 mmol/L 4.2 mmol/L Chloride Level 108 mmol/L 108 mmol/L Carbon Dioxide Level 27 mmol/L 26 mmol/L Anion Gap 7.0 mmol/L 8.0 mmol/L Blood Urea Nitrogen 23 mg/dl 24 mg/dl Creatinine 4.60 mg/dl 4.81 mg/dl Est Creatinine Clear Calc Drug Dose 23.1 ml/min 22.1 ml/min Estimated GFR () 16.3 15.5 Estimated GFR (Non- 14.1 13.4 BUN/Creatinine Ratio 5.0 4.9 Random Glucose 97 mg/dl 98 mg/dl Calcium Level 8.8 mg/dl 8.9 mg/dl Assessment and Plan (1) Perineal abscess Assessment & Plan: continue abx. vanco on hold. would dose by level while creat increased. re dose when <15 Continued [facility] stay due to: multiple IV medications needed Discharge planning: home
[2018-03-30] MEDS: SODIUM CHLORIDE 0.9% 1000ML 1,000 ML IV SCH ×3 (11:16→21:02)
[2018-03-30] MEDS ORDERED: VANCOMYCIN TROUGH ONE (11:30)
[2018-03-30 15:26] VITALS: BP 174/89; PULSE 64; TEMP 36.9; O2SAT 99
[2018-03-30 15:38] LABS: ALBUMIN 2.4 gm/dl (3.4-5.0); CALCIUM 8.7 mg/dl (8.5-10.1); CREATININE 4.87 mg/dl (0.60-1.40); PHOSPHORUS 3.8 mg/dl (2.5-4.9); POTASSIUM 4.2 mmol/L (3.5-5.1)
[2018-03-30 23:39] VITALS: BP 154/82; PULSE 59; TEMP 36.8; O2SAT 98
[2018-03-31] MEDS: SODIUM CHLORIDE 0.9% 1000ML 1,000 ML IV SCH (03:45)
[2018-03-31 06:36] LABS: CALCIUM 8.5 mg/dl (8.5-10.1); CREATININE 5.21 mg/dl (0.60-1.40); POTASSIUM 4.2 mmol/L (3.5-5.1)
[2018-03-31 07:36] VITALS: O2SAT 98
[2018-03-31 08:00] VITALS: BP 179/94; PULSE 56; TEMP 36.8; O2SAT 98
[2018-03-31] MEDS: HEPARIN SOD 5000 UNIT/0.5 ML CARP SQ SCH ×2 (08:26→16:17)
[2018-03-31] MEDS: DOCUSATE SODIUM 100 MG CAP PO SCH ×2 (08:28→21:00)
[2018-03-31 08:30] VITALS: BP 165/89
--- NOTE | 2018-03-31 08:44 | Pharmacy Progress Note ---
Pharmacy Antibiotic Prog Note Date of Service Mar 31, 2018. Subjective The patient is currently receiving vancomycin (currently on hold for WAI) and zosyn The patient is currently on day #6 of vancomycin IV therapy. Objective Height (Feet): 5 Height (Inches): 8.00 Weight (Kilograms): 103.100 Levels: Item Value Date Time Random Vancomycin Level 38.3 mcg/ml 03/31/18 0518 Lab Results (24hrs): Test 03/30/18 10:30 03/30/18 10:58 03/30/18 14:56 03/31/18 05:18 Urine Color YELLOW Urine Appearance CLEAR (CLEAR) Urine pH 7.0 (4.5-7.5) Urine Specific [place] 1.006 (1.000-1.030) Urine Protein NEG (NEG) Urine Glucose (UA) NEG (NEG) Urine Ketones NEG (NEG) Urine Occult Blood 1+ (NEG) Urine Nitrite NEG (NEG) Urine Bilirubin NEG (NEG) Urine Urobilinogen NEG (NEG) Urine Leukocyte Esterase TRACE (NEG) Urine WBC (Auto) 1-5 /hpf (0-5) Urine RBC (Auto) 0-4 /hpf (0-4) Urine Hyaline Casts (Auto) 1-5 /lpf (0-5) Urine Epithelial Cells (Auto) 5-10 /lpf (0-5) Urine Bacteria (Auto) NEG (NEG) Total Creatine Kinase 39 U/L (39-308) Sodium Level 142 mmol/L (136-145) 144 mmol/L (136-145) Potassium Level 4.2 mmol/L (3.5-5.1) 4.2 mmol/L (3.5-5.1) Chloride Level 109 mmol/L (98-107) 113 mmol/L (98-107) Carbon Dioxide Level 24 mmol/L (21-32) 24 mmol/L (21-32) Anion Gap 8.0 mmol/L (3-11) 8.0 mmol/L (3-11) Blood Urea Nitrogen 25 mg/dl (7-18) 26 mg/dl (7-18) Creatinine 4.87 mg/dl (0.60-1.40) 5.21 mg/dl (0.60-1.40) Est Creatinine Clear Calc Drug Dose 21.8 ml/min 20.4 ml/min Estimated GFR () 15.3 14.1 Estimated GFR (Non- 13.2 12.1 BUN/Creatinine Ratio 5.0 (10-20) 4.9 (10-20) Random Glucose 91 mg/dl (70-99) 96 mg/dl (70-99) Calcium Level 8.7 mg/dl (8.5-10.1) 8.5 mg/dl (8.5-10.1) Phosphorus Level 3.8 mg/dl (2.5-4.9) Albumin 2.4 gm/dl (3.4-5.0) Random Vancomycin Level 38.3 mcg/ml Assessment & Plan Patient on vancomycin (currently on hold for WAI) and zosyn for tx of scrotal/ perianal abscess. ID is consulted recommend at least 14 days of therapy. Vancomycin: * Vancomycin doses held yesterday due to rise in Scr. Random level this am supratherapeutic at ~38 mcg/ml (goal 15-20 mcg/ml) * Scr continues to rise more today, from 4.81 to 5.21 mg/dL today (CrCl ~20 ml/ min) * Will continue to hold doses of vancomycin until Scr improves - estimated t1/2> 24 hrs, will remain >15 mcg/ml until tomorrow * Will reorder random level in the am to assist with further dosing * Nephrology consulted to follow patient, as of yesterday 03/30, there is no indication for dialysis but will follow closely if plans change Zosyn: * Q12 hr dosing adjusted yesterday - will continue same; appropriate for CrCl </ =20 ml/min Pharmacy will continue to follow and will adjust dose/frequency as necessary. Thank you
[2018-03-31 09:19] VITALS: BP 155/83
[2018-03-31] MEDS: PIPERACILL/TAZOBAC IV 3.375 GM in D5W 100ML IV SCH ×2 (10:42→21:29)
--- NOTE | 2018-03-31 10:57 | Nephrology Progress Note ---
Nephrology Progress Note Date of Service Mar 31, 2018. Chief Complaint WAI Subjective No acute events overnight. Renal US noted Alejo balloon to be inflated in the prostate. The catheter was advanced into the bladder. Urine output remains normal. Fredis denies pain. He feels well. Appetite is good. No fevers or chills reported. No shortness of breath. Review of Systems A complete review of systems was performed. Pertinent positives are noted above. All other systems are negative. Vital Signs Last 8 Hrs Date Time Temp Pulse Resp B/P (MAP) Pulse Ox O2 Delivery O2 Flow Rate FiO2 03/31/18 09:19 155/83 (107) 03/31/18 08:30 165/89 (114) 03/31/18 08:00 36.8 56 16 179/94 (122) 98 03/31/18 07:36 98 Room Air Last Recorded Weight Weight (Kilograms): 103.100 Physical Exam General Appearance: WD/WN, no apparent distress Head: normocephalic, atraumatic Eyes: normal inspection, sclerae normal ENT: normal ENT inspection, pharynx normal Neck: supple, no JVD Respiratory/Chest: lungs clear, no respiratory distress, no accessory muscle use Cardiovascular: regular rate, rhythm, no gallop, no murmur Abdomen/GI: non tender, soft Extremities/Musculoskelatal: normal inspection, no pedal edema Neurologic/Psych: alert, normal mood/affect Family History Diabetes mellitus Social History Occupation: other Laboratory Results Past 24 Hours 03/30/18 14:56 03/31/18 05:18 Test 03/30/18 10:58 03/30/18 14:56 03/31/18 05:18 Total Creatine Kinase 39 U/L (39-308) Anion Gap 8.0 mmol/L (3-11) 8.0 mmol/L (3-11) Est Creatinine Clear Calc Drug Dose 21.8 ml/min 20.4 ml/min Estimated GFR () 15.3 14.1 Estimated GFR (Non- 13.2 12.1 BUN/Creatinine Ratio 5.0 (10-20) 4.9 (10-20) Calcium Level 8.7 mg/dl (8.5-10.1) 8.5 mg/dl (8.5-10.1) Phosphorus Level 3.8 mg/dl (2.5-4.9) Albumin 2.4 gm/dl (3.4-5.0) Random Vancomycin Level 38.3 mcg/ml Allergies Coded Allergies: No Known Allergies (Unverified , 02/01/18) Medications Current Inpatient Medications Medications (Trade) Dose Ordered Sig/Fabrizio Route Start Time Stop Time Status Last Admin Dose Admin Heparin Sodium (Porcine) (Heparin Sq 5000 Unit/0.5ml) 5,000 unit Q8H SQ 03/24/18 08:00 04/23/18 07:59 03/31/18 08:26 5,000 UNIT Al Hydrox/Mg Hydrox/Simethicone (Maalox Max Susp) 15 ml Q4H PRN PO 03/23/18 14:15 04/22/18 14:14 Magnesium Hydroxide (Milk Of Magnesia Susp) 30 ml Q6H PRN PO 03/23/18 14:15 04/22/18 14:14 03/25/18 12:55 30 ML Ondansetron HCl (Zofran Inj) 4 mg Q6H PRN IV 03/23/18 14:15 04/22/18 14:14 03/28/18 19:47 4 MG Miscellaneous Information (Consult) 1 ea UD PRN N/A 03/23/18 14:15 04/22/18 14:14 Oxycodone HCl (Roxicodone Immediate Rel Tab) 10 mg Q6 PRN PO 03/23/18 14:15 04/06/18 14:14 03/29/18 03:59 10 MG Morphine Sulfate (MoRPHine SULFATE INJ) 2 mg Q4H PRN IV 03/23/18 14:15 04/06/18 14:14 Morphine Sulfate (MoRPHine SULFATE INJ) 4 mg Q4H PRN IV 03/23/18 14:15 04/06/18 14:14 03/24/18 05:46 4 MG Acetaminophen (Tylenol Tab) 1,000 mg Q6H PRN PO 03/23/18 14:45 04/22/18 14:44 03/28/18 02:13 1,000 MG Vancomycin HCl 2000 mg/Sodium Chloride 540 ml @ 200 mls/hr Q12H IV 03/27/18 00:00 04/05/18 11:59 Future Hold 03/29/18 23:39 200 MLS/HR Vancomycin HCl (Consult) 1 ea UD PRN N/A 03/26/18 12:00 04/25/18 11:59 Docusate Sodium (coLACE CAP) 100 mg BID PO 03/26/18 21:00 04/25/18 20:59 03/31/18 08:28 100 MG Polyethylene (Miralax Powder Packet) 17 gm DAILY PRN PO 03/26/18 15:45 04/25/18 15:44 Heparin Sodium (Porcine) (Heparin 10 Unit/ ml 5 ml Flush) 5 ml PRN PRN FLUSH 03/29/18 10:15 04/28/18 10:14 03/30/18 01:56 5 ML Hydralazine HCl (HydrALAZINE INJ) 20 mg Q6 PRN IV. 03/30/18 07:45 04/29/18 07:44 03/31/18 08:06 20 MG Piperacillin Sod/ Tazobactam Sod 3.375 gm/Dextrose 115 ml @ 28.75 mls/ hr Q12H IV 03/30/18 22:00 04/09/18 21:59 03/31/18 10:42 28.75 MLS/HR Impression (1) Acute kidney injury (2) Ureteral stricture (3) Perineal abscess Fredis is a non-diabetic 47-year-old male with a ureteral stricture and perineal abscess being treated with vancomycin and zosyn. Hospital course complicated by non-oliguric WAI. BP and volume status remain appropriate. Metabolic profile is otherwise acceptable. There is no current indication for dialysis. The rate of rise in serum creatinine was disconcerting. Etiology unclear. Renal US demonstrated Alejo balloon to be in prostate but kidneys did not appear obstructed. Urine output has been appropriate. CPK was normal. Urine microscopy is acellular. ATN is possible as well as possible vancomycin nephropathy. Medications are currently appropriately dosed for kidney function. Volume status is acceptable and IVF have been stopped. Prospective monitoring will be provided with a repeat metabolic profile tomorrow AM.
--- NOTE | 2018-03-31 13:13 | Progress Note ---
Subjective Date of Service: Mar 31, 2018. Subjective Pt evaluation today including: conversation w/ patient, conversation w/ family , physical exam, chart review, lab review, review of studies, conversation w/ emergency management consultant, review of inpatient medication list No complaint, good urine output, has been having peritoneal area wound dressing change Problem List Medical Problems: (1) Pyocele Status: Acute (2) Testicular pain, left Status: Acute (3) Urinary retention Status: Acute Review of Systems Constitutional: + weakness, + fatigue, No fever, No chills, No sweats, No weight loss, No problem reported Eyes: No worsening of vision, No eye pain, No redness, No discharge, No diplopia ENT: No hearing loss, No unusual epistaxis, No nasal symptoms, No sore throat, No tinnitus, No dental problems, No trouble swallowing Respiratory: No cough, No sputum, No wheezing, No shortness of breath, No dyspnea on exertion, No dyspnea at rest, No hemoptysis Cardiac: No chest pain, No orthopnea, No PND, No edema, No claudication, No palpitations Abdomen: No pain, No nausea, No vomiting, No diarrhea, No constipation Musculoskeletal: No joint pain, No muscle pain, No swelling, No calf pain Male : No dysuria, No urinary frequency, No incontinence, No nocturia more than once/night, No slowing stream, No hematuria Neurologic: No memory loss, No paralysis, No weakness, No numbness/tingling, No vertigo, No balance problems Psychiatric: No depression symptoms, No anhedonism, No anxiety, No insomnia, No substance abuse Heme: No abnormal bleeding/bruising, No clotting problems, No swollen lymph nodes, No night sweats Endo: No fatigue, No excessive thirst, No excessive urination Skin: No rash, No itch, No new/changing skin lesions, No color change, No bleeding Objective Vital Signs Date Time Temp Pulse Resp B/P (MAP) Pulse Ox O2 Delivery O2 Flow Rate FiO2 03/31/18 09:19 155/83 (107) 03/31/18 08:30 165/89 (114) 03/31/18 08:00 36.8 56 16 179/94 (122) 98 03/31/18 07:36 98 Room Air 03/30/18 23:39 36.8 59 14 154/82 (106) 98 Room Air 03/30/18 23:30 Room Air 03/30/18 15:45 Room Air 03/30/18 15:26 36.9 64 16 174/89 (117) 99 Room Air Physical Exam General Appearance: WD/WN, no apparent distress Eyes: normal inspection, PERRL, EOMI, sclerae normal ENT: normal ENT inspection, hearing grossly normal, pharynx normal Neck: supple, no adenopathy, thyroid normal, no JVD, no carotid bruits, trachea midline Respiratory/Chest: chest non-tender, lungs clear, normal breath sounds, no respiratory distress, no accessory muscle use Cardiovascular: regular rate, rhythm, no edema, no gallop, no JVD, no murmur Abdomen: normal bowel sounds, non tender, soft, no organomegaly, no pulsatile mass, + pertinent finding (Jenkins in place with good urine output,) Extremities: normal range of motion, non-tender, normal inspection, no pedal edema, no calf tenderness, normal capillary refill, pelvis stable Neurologic/Psychiatric: port drier II-XII nml as tested, no motor/sensory deficits, alert, normal mood/affect, oriented x 3 Skin: normal color, warm/dry, no rash, + pertinent finding (Perineal laceration in dressing with minimal amount bloody oozing drainage) Lymphatic: no adenopathy Laboratory Results Last 24 Hours Test 03/30/18 14:56 03/31/18 05:18 Sodium Level 142 mmol/L 144 mmol/L Potassium Level 4.2 mmol/L 4.2 mmol/L Chloride Level 109 mmol/L 113 mmol/L Carbon Dioxide Level 24 mmol/L 24 mmol/L Anion Gap 8.0 mmol/L 8.0 mmol/L Blood Urea Nitrogen 25 mg/dl 26 mg/dl Creatinine 4.87 mg/dl 5.21 mg/dl Est Creatinine Clear Calc Drug Dose 21.8 ml/min 20.4 ml/min Estimated GFR () 15.3 14.1 Estimated GFR (Non- 13.2 12.1 BUN/Creatinine Ratio 5.0 4.9 Random Glucose 91 mg/dl 96 mg/dl Calcium Level 8.7 mg/dl 8.5 mg/dl Phosphorus Level 3.8 mg/dl Albumin 2.4 gm/dl Random Vancomycin Level 38.3 mcg/ml Assessment and Plan 47-year-old nondiabetic male admitted on March 23, 2018 with scrotal perineal abscess s/P I&D, developed acute renal failure 2 days ago on March 30, 2018 acute kidney failure: Etiology unknown, renal,post renal or prerenal, kidney ultrasound has no hydro-, which rule out post renal obstruction, patient has no sign of hypovolemic with normal blood pressure and fluid balance, which grew out prerenal Talk to program review director, ATN is possible as well as possible vancomycin nephropathy.avoid all kidney offensive meds, discontinue IVF, continue supportive care Scrotal abscess s/p Incision and drainage, this is the major reason for patient admitted to the hospital initially with cystoscopy and dilation of stricture and difficult jenkins placement. Procedure was done on March 24, 2018, Postop day 7, urology follow-up, continue wound care: change loose packing (one 4x4) once daily; change surrounding dressing 3x per day or as soiled. Per urologist, do not manipulate Jenkins catheter, will be staying in place for 2 + weeks. 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 Urology team called [facility], spoke with on staff Physician [employer] Supervisor Nathan, Report states Nathan is familiar with patient. Discussed wound care instructions, importance of maintaining Jenkins catheter, and necessity of referral to reconstruction urologist. Nathan will be arranging referral to [facility]. per , possible concern for urine in the rectum/fistula Possible, however patient will need to heal from this infection, I&D/catheter placement for 3-4 weeks before repair would be advisable. Repair would take place with reconstruction urologist at [place]. Corynebacterium gross in abscess culture, infectious disease consulted, at [facility], per infectious disease, need IV antibiotic at least 2 weeks, PICC line inserted on 03/29/2018 per ID: will need min 14 days. today is day 7/14 days ( need to through [facility]) will need weekly cbc, cmp, vanco trough maintain 15-20 moderate to high risk , Pain control be parenteral opiates with oxycodone Part of longterm, they have ordered current medication of IV antibiotics and the medicine will be ready for pt to be arriving Continued [facility] stay due to: multiple IV medications needed Discharge planning: home
[2018-03-31 15:16] VITALS: BP 161/91; PULSE 71; TEMP 36.8; O2SAT 99
[2018-03-31 22:49] VITALS: BP 152/74; PULSE 71; TEMP 37.2; O2SAT 99
[2018-04-01] MEDS: HEPARIN SOD 5000 UNIT/0.5 ML CARP SQ SCH ×3 (00:03→15:40)
[2018-04-01 06:01] LABS: HEMATOCRIT 32.5 % (42-52); HEMOGLOBIN 10.4 g/dL (14.0-18.0); MEAN CELL VOLUME 88.6 fL (80-100); MEAN CORPUSCULAR HEMOGLOBIN 28.3 pg (25-34); MEAN PLATELET VOLUME 9.2 fL (7.4-10.4); PLATELET COUNT 375 K/uL (130-400); RED CELL DISTRIBUTION WIDTH CV 15.4 % (11.5-14.5); RED CELL DISTRIBUTION WIDTH SD 49.9 fL (36.4-46.3); WHITE BLOOD COUNT 11.27 K/uL (4.8-10.8)
[2018-04-01 06:45] LABS: CREATININE 5.58 mg/dl (0.60-1.40); POTASSIUM 3.9 mmol/L (3.5-5.1)
[2018-04-01 07:39] VITALS: O2SAT 99
[2018-04-01 08:00] VITALS: BP 159/85; PULSE 61; TEMP 36.8; O2SAT 99
[2018-04-01] MEDS: DOCUSATE SODIUM 100 MG CAP PO SCH ×2 (09:33→21:00)
--- NOTE | 2018-04-01 10:14 | Nephrology Progress Note ---
Nephrology Progress Note Date of Service Apr 01, 2018. Chief Complaint WAI Subjective No acute events overnight. Fredis feels well this morning. No fevers or chills. Denies significant pain. Able to move bowels. Alejo continues to drain clear yellow urine. Appetite is good. No nausea or abdominal pain reported. Review of Systems A complete review of systems was performed. Pertinent positives are noted above. All other systems are negative. Vital Signs Last 8 Hrs Date Time Temp Pulse Resp B/P (MAP) Pulse Ox O2 Delivery O2 Flow Rate FiO2 04/01/18 08:00 36.8 61 18 159/85 (109) 99 Room Air 04/01/18 07:39 99 Room Air Last Recorded Weight Weight (Kilograms): 103.100 Physical Exam General Appearance: WD/WN, no apparent distress Head: normocephalic, atraumatic Eyes: normal inspection, sclerae normal ENT: normal ENT inspection, pharynx normal Neck: supple, no JVD Respiratory/Chest: lungs clear, no respiratory distress, no accessory muscle use, + rales (few at right base) Cardiovascular: regular rate, rhythm, no gallop Abdomen/GI: non tender, soft Genitourinary - Male: + pertinent finding (Alejo draining clear yellow urine) Extremities/Musculoskelatal: normal inspection, no pedal edema Neurologic/Psych: alert, normal mood/affect Family History Diabetes mellitus Social History Occupation: other Laboratory Results Past 24 Hours 04/01/18 05:39 04/01/18 05:39 Test 04/01/18 05:39 Red Blood Count 3.67 M/uL (4.7-6.1) Mean Corpuscular Volume 88.6 fL (80-100) Mean Corpuscular Hemoglobin 28.3 pg (25-34) Mean Corpuscular Hemoglobin Concent 32.0 g/dl (32-36) RDW Standard Deviation 49.9 fL (36.4-46.3) RDW Coefficient of Variation 15.4 % (11.5-14.5) Mean Platelet Volume 9.2 fL (7.4-10.4) Anion Gap 9.0 mmol/L (3-11) Est Creatinine Clear Calc Drug Dose 19.0 ml/min Estimated GFR () 12.9 Estimated GFR (Non- 11.2 BUN/Creatinine Ratio 4.5 (10-20) Calcium Level 9.0 mg/dl (8.5-10.1) Random Vancomycin Level 26.8 mcg/ml Allergies Coded Allergies: No Known Allergies (Unverified , 02/01/18) Medications Current Inpatient Medications Medications (Trade) Dose Ordered Sig/Fabrizio Route Start Time Stop Time Status Last Admin Dose Admin Heparin Sodium (Porcine) (Heparin Sq 5000 Unit/0.5ml) 5,000 unit Q8H SQ 03/24/18 08:00 04/23/18 07:59 04/01/18 09:31 5,000 UNIT Al Hydrox/Mg Hydrox/Simethicone (Maalox Max Susp) 15 ml Q4H PRN PO 03/23/18 14:15 04/22/18 14:14 Magnesium Hydroxide (Milk Of Magnesia Susp) 30 ml Q6H PRN PO 03/23/18 14:15 04/22/18 14:14 03/25/18 12:55 30 ML Ondansetron HCl (Zofran Inj) 4 mg Q6H PRN IV 03/23/18 14:15 04/22/18 14:14 03/28/18 19:47 4 MG Miscellaneous Information (Consult) 1 ea UD PRN N/A 03/23/18 14:15 04/22/18 14:14 Oxycodone HCl (Roxicodone Immediate Rel Tab) 10 mg Q6 PRN PO 03/23/18 14:15 04/06/18 14:14 03/29/18 03:59 10 MG Morphine Sulfate (MoRPHine SULFATE INJ) 2 mg Q4H PRN IV 03/23/18 14:15 04/06/18 14:14 Morphine Sulfate (MoRPHine SULFATE INJ) 4 mg Q4H PRN IV 03/23/18 14:15 04/06/18 14:14 03/24/18 05:46 4 MG Acetaminophen (Tylenol Tab) 1,000 mg Q6H PRN PO 03/23/18 14:45 04/22/18 14:44 03/28/18 02:13 1,000 MG Vancomycin HCl 2000 mg/Sodium Chloride 540 ml @ 200 mls/hr Q12H IV 03/27/18 00:00 04/05/18 11:59 Future Hold 03/29/18 23:39 200 MLS/HR Vancomycin HCl (Consult) 1 ea UD PRN N/A 03/26/18 12:00 04/25/18 11:59 Docusate Sodium (coLACE CAP) 100 mg BID PO 03/26/18 21:00 04/25/18 20:59 03/31/18 08:28 100 MG Polyethylene (Miralax Powder Packet) 17 gm DAILY PRN PO 03/26/18 15:45 04/25/18 15:44 Heparin Sodium (Porcine) (Heparin 10 Unit/ ml 5 ml Flush) 5 ml PRN PRN FLUSH 03/29/18 10:15 04/28/18 10:14 04/01/18 05:44 5 ML Hydralazine HCl (HydrALAZINE INJ) 20 mg Q6 PRN IV. 03/30/18 07:45 04/29/18 07:44 03/31/18 08:06 20 MG Piperacillin Sod/ Tazobactam Sod 3.375 gm/Dextrose 115 ml @ 28.75 mls/ hr Q12H IV 03/30/18 22:00 04/09/18 21:59 03/31/18 21:29 28.75 MLS/HR Impression (1) Acute kidney injury (2) Ureteral stricture (3) Perineal abscess Fredis is a non-diabetic 47-year-old male with a ureteral stricture and perineal abscess. Infection is being treated with vancomycin and zosyn. Blood cultures have been negative.Hospital course complicated by non- oliguric WAI. BP and volume status remain appropriate. BP slightly elevated, currently being treated with PRN hydralazine. Metabolic profile is otherwise acceptable. There is no current indication for dialysis. The rate of rise in serum creatinine was rapid but has started to slow Etiology unclear. Renal US demonstrated Alejo balloon to be in prostate but kidneys not obstructed. Urine output has been appropriate. CPK was normal. Urine microscopy is acellular. ATN is possible as well as possible vancomycin nephropathy. Medications are currently appropriately dosed for kidney function. Volume status is acceptable and IVF have been stopped. Prospective monitoring will be provided with a repeat metabolic profile tomorrow AM.
--- NOTE | 2018-04-01 10:42 | Pharmacy Progress Note ---
Pharmacy Antibiotic Prog Note Date of Service Apr 01, 2018. Subjective The patient is currently receiving vancomycin dosed based upon levels due to unstable renal function The patient is currently on day # 7 of IV vancomycin therapy. Objective Height (Feet): 5 Height (Inches): 8.00 Weight (Kilograms): 103.100 Levels: Item Value Date Time Random Vancomycin Level 26.8 mcg/ml 04/01/18 0539 Random Vancomycin Level 38.3 mcg/ml 03/31/18 0518 Lab Results (24hrs): Test 04/01/18 05:39 White Blood Count 11.27 K/uL (4.8-10.8) Red Blood Count 3.67 M/uL (4.7-6.1) Hemoglobin 10.4 g/dL (14.0-18.0) Hematocrit 32.5 % (42-52) Mean Corpuscular Volume 88.6 fL (80-100) Mean Corpuscular Hemoglobin 28.3 pg (25-34) Mean Corpuscular Hemoglobin Concent 32.0 g/dl (32-36) RDW Standard Deviation 49.9 fL (36.4-46.3) RDW Coefficient of Variation 15.4 % (11.5-14.5) Platelet Count 375 K/uL (130-400) Mean Platelet Volume 9.2 fL (7.4-10.4) Sodium Level 144 mmol/L (136-145) Potassium Level 3.9 mmol/L (3.5-5.1) Chloride Level 112 mmol/L (98-107) Carbon Dioxide Level 23 mmol/L (21-32) Anion Gap 9.0 mmol/L (3-11) Blood Urea Nitrogen 24 mg/dl (7-18) Creatinine 5.58 mg/dl (0.60-1.40) Est Creatinine Clear Calc Drug Dose 19.0 ml/min Estimated GFR () 12.9 Estimated GFR (Non- 11.2 BUN/Creatinine Ratio 4.5 (10-20) Random Glucose 97 mg/dl (70-99) Calcium Level 9.0 mg/dl (8.5-10.1) Random Vancomycin Level 26.8 mcg/ml Micro Results: Item Value Date Time Gram Stain - Final Complete 03/24/18 0823 Abscess Scrotum Gram Stain - Final Complete 03/24/18 0823 Abscess Scrotum Gram Stain - Final Complete 03/24/18 0829 Tissue Scrotum Assessment & Plan Patient on vancomycin (dosed based upon levels for WAI) and zosyn for tx of scrotal/perianal abscess. ID is consulted and recommended at least 14 days of therapy. Vancomycin: * Random vancomycin level this am ~26 mcg/ml (goal 15-20 mcg/ml) * Scr continues to rise today, from 5.21 to 5.58 today CrCl ~19 ml/min * Based upon random level from yesterday and level from today estimated kinetics : t1/2~45 hr, ke~0.015 hr-1 * Will continue to dose by levels since patient with WAI - will again hold vancomycin dose for today ; estimated level still >15 mcg/ml * Will order a random level in the am to assist with further dosing Zosyn: * Q12 hr dosing - will continue same; appropriate for CrCl </=20 ml/min Pharmacy will continue to follow and will adjust dose/frequency as necessary. Thank you
[2018-04-01] MEDS: PIPERACILL/TAZOBAC IV 3.375 GM in D5W 100ML IV SCH ×2 (11:04→21:35)
--- NOTE | 2018-04-01 14:59 | Progress Note ---
Subjective Date of Service: Apr 01, 2018. Subjective Pt evaluation today including: conversation w/ patient, physical exam, chart review, lab review, review of studies, conversation w/ recruiting and selection consultant, review of inpatient medication list Voiding: jenkins catheter in place Doing the same, no complaint, drainage and dressing changes seems better, Problem List Medical Problems: (1) Pyocele Status: Acute (2) Testicular pain, left Status: Acute (3) Urinary retention Status: Acute Review of Systems Constitutional: + weakness, + fatigue, No fever, No chills, No sweats, No weight loss, No problem reported Eyes: No worsening of vision, No eye pain, No redness, No discharge, No diplopia ENT: No hearing loss, No unusual epistaxis, No nasal symptoms, No sore throat, No tinnitus, No dental problems, No trouble swallowing Respiratory: No cough, No sputum, No wheezing, No shortness of breath, No dyspnea on exertion, No dyspnea at rest, No hemoptysis Cardiac: No chest pain, No orthopnea, No PND, No edema, No claudication, No palpitations Abdomen: No pain, No nausea, No vomiting, No diarrhea, No constipation Musculoskeletal: No joint pain, No muscle pain, No swelling, No calf pain Male : No dysuria, No urinary frequency, No incontinence, No nocturia more than once/night, No slowing stream, No hematuria Neurologic: No memory loss, No paralysis, No weakness, No numbness/tingling, No vertigo, No balance problems Psychiatric: No depression symptoms, No anhedonism, No anxiety, No insomnia, No substance abuse Heme: No abnormal bleeding/bruising, No clotting problems, No swollen lymph nodes, No night sweats Endo: No fatigue, No excessive thirst, No excessive urination Skin: + problem reported (Perineal wound S/P I&D), No rash, No itch, No new/ changing skin lesions, No color change, No bleeding Objective Vital Signs Date Time Temp Pulse Resp B/P (MAP) Pulse Ox O2 Delivery O2 Flow Rate FiO2 04/01/18 08:00 36.8 61 18 159/85 (109) 99 Room Air 04/01/18 07:39 99 Room Air 04/01/18 00:00 Room Air 03/31/18 22:49 37.2 71 16 152/74 (100) 99 Room Air 03/31/18 15:34 Room Air 03/31/18 15:16 36.8 71 16 161/91 (114) 99 Room Air Physical Exam General Appearance: WD/WN, no apparent distress Eyes: normal inspection, PERRL, EOMI, sclerae normal ENT: normal ENT inspection, hearing grossly normal, pharynx normal Neck: supple, no adenopathy, thyroid normal, no JVD, no carotid bruits, trachea midline Respiratory/Chest: chest non-tender, normal breath sounds, no respiratory distress, no accessory muscle use, + decreased breath sounds Cardiovascular: regular rate, rhythm, no edema, no gallop, no JVD, no murmur Abdomen: normal bowel sounds, non tender, soft, no organomegaly, no pulsatile mass, + pertinent finding (Perineal area S/P I&D and dressing, Jenkins catheter in place,) Extremities: normal range of motion, non-tender, normal inspection, no pedal edema, no calf tenderness, normal capillary refill, pelvis stable Neurologic/Psychiatric: senior logistics manager II-XII nml as tested, no motor/sensory deficits, alert, normal mood/affect, oriented x 3 Skin: normal color, warm/dry, no rash Lymphatic: no adenopathy Laboratory Results Last 24 Hours Test 04/01/18 05:39 White Blood Count 11.27 K/uL Red Blood Count 3.67 M/uL Hemoglobin 10.4 g/dL Hematocrit 32.5 % Mean Corpuscular Volume 88.6 fL Mean Corpuscular Hemoglobin 28.3 pg Mean Corpuscular Hemoglobin Concent 32.0 g/dl RDW Standard Deviation 49.9 fL RDW Coefficient of Variation 15.4 % Platelet Count 375 K/uL Mean Platelet Volume 9.2 fL Sodium Level 144 mmol/L Potassium Level 3.9 mmol/L Chloride Level 112 mmol/L Carbon Dioxide Level 23 mmol/L Anion Gap 9.0 mmol/L Blood Urea Nitrogen 24 mg/dl Creatinine 5.58 mg/dl Est Creatinine Clear Calc Drug Dose 19.0 ml/min Estimated GFR () 12.9 Estimated GFR (Non- 11.2 BUN/Creatinine Ratio 4.5 Random Glucose 97 mg/dl Calcium Level 9.0 mg/dl Random Vancomycin Level 26.8 mcg/ml Assessment and Plan 47-year-old nondiabetic male admitted on March 23, 2018 with scrotal perineal abscess s/P I&D, developed acute renal failure 2 days ago on March 30, 2018 acute kidney failure: Etiology unknown, Extremities continue getting worse, renal,post renal or prerenal, kidney ultrasound has no hydro-, which rule out post renal obstruction, patient has no sign of hypovolemic with normal blood pressure and fluid balance, which grew out prerenal Talk to shortage worker, ATN is possible as well as possible vancomycin nephropathy.avoid all kidney offensive meds, discontinue IVF, continue supportive care Scrotal abscess s/p Incision and drainage, this is the major reason for patient admitted to the hospital initially with cystoscopy and dilation of stricture and difficult jenkins placement. Procedure was done on March 24, 2018, Postop day 8, urology follow-up, continue wound care: change loose packing (one 4x4) once daily; change surrounding dressing 3x per day or as soiled. Per urologist, do not manipulate Jenkins catheter, will be staying in place for 2 + weeks since the day of procedure severe pendulous urethra stricture s/p dilation and jenkins needs follow up with reconstruction urologist - Joseluis or [facility]. Urology team called [facility], spoke with on staff Physician Staffing Director Nathan, Report states Nathan is familiar with patient. Discussed wound care instructions, importance of maintaining Jenkins catheter, and necessity of referral to reconstruction urologist. Nathan will be arranging referral to [facility]. per , possible concern for urine in the rectum/fistula Possible, however patient will need to heal from this infection, I&D/catheter placement for 3-4 weeks before repair would be advisable. Repair would take place with reconstruction urologist at [place]. Corynebacterium gross in abscess culture, infectious disease consulted, at [facility], per infectious disease, need IV antibiotic at least 2 weeks, PICC line inserted on 03/29/2018 per ID: will need min 14 days. today is day 7/14 days ( need to through [facility]) will need weekly cbc, cmp, vanco trough maintain 15-20 moderate to high risk , PICC line was done, his call senior living to prepare and ordered the IV antibiotics, they are ready Pain control be parenteral opiates with oxycodone Part of senior living, they have ordered current medication of IV antibiotics and the medicine will be ready for pt to be arriving Continued [facility] stay due to: multiple IV medications needed Discharge planning: home
[2018-04-01 15:29] VITALS: BP 149/78; PULSE 63; TEMP 36.4; O2SAT 100
[2018-04-01 23:02] VITALS: BP 143/85; PULSE 61; TEMP 36.8; O2SAT 97
[2018-04-02] MEDS: HEPARIN SOD 5000 UNIT/0.5 ML CARP SQ SCH ×3 (01:16→16:17)
[2018-04-02 06:46] LABS: CALCIUM 9.1 mg/dl (8.5-10.1); CREATININE 5.58 mg/dl (0.60-1.40); POTASSIUM 3.7 mmol/L (3.5-5.1)
[2018-04-02 07:55] VITALS: BP 175/80; PULSE 59; TEMP 36.8; O2SAT 97
[2018-04-02 08:28] VITALS: O2SAT 97
[2018-04-02] MEDS: DOCUSATE SODIUM 100 MG CAP PO SCH ×2 (09:00→21:00)
--- NOTE | 2018-04-02 09:55 | Pharmacy Progress Note ---
Pharmacy Abx Dose Progress Nt Date of Service Apr 02, 2018. Pharmacy Dosing Scope The patient is currently receiving the following antimicrobial agents per Pharmacy consult: Vancomycin and Zosyn Objective Height (Feet): 5 Height (Inches): 8.00 Weight (Kilograms): 103.100 Vital Signs (Past 12Hrs) Vital Signs Past 12 Hours Date Time Temp Pulse Resp B/P (MAP) Pulse Ox O2 Delivery O2 Flow Rate FiO2 04/02/18 08:28 97 Room Air 04/02/18 07:55 36.8 59 20 175/80 (111) 97 Room Air 04/01/18 23:45 Room Air 04/01/18 23:02 36.8 61 16 143/85 (104) 97 Room Air Micro Results Date/Time Source Procedure Growth Status 03/23/18 14:45 Blood Blood Culture - Final NO GROWTH Complete 03/23/18 14:44 Blood Blood Culture - Final NO GROWTH Complete 03/24/18 03:05 Nasal MRSA DNA Surveillance Screen - Final Specimen Negative for MRSA by DNA Probe Complete 03/23/18 11:15 Urine , Clean Catch Urine Culture - Final Corynbact.sp Not Urealyticum Complete 03/24/18 08:23 Abscess Scrotum Gram Stain - Final Complete 03/24/18 08:23 Bacterial Culture - Final Corynebacterium Species Complete 03/24/18 08:23 Abscess Scrotum Gram Stain - Final Complete 03/24/18 08:23 Bacterial Culture - Final Corynebacterium Species Complete 03/24/18 08:23 Tissue Scrotum Gram Stain - Final Complete 03/24/18 08:23 Bacterial Culture - Final Corynebacterium Species Actinomyces Meyeri Complete Risk Factors for Resistance * Resident in a residential or extended-care facility Assessment & Plan Assessment Patient on vancomycin (currently dosed based upon levels for WAI) and Zosyn for tx of scrotal/perianal abscess. ID is consulted and recommended at least 14 days of concurrent therapy. Item Value Date Time Random Vancomycin Level 20.5 mcg/ml 04/02/18 0521 Plan Vancomycin: * Vancomycin remains on hold since patient in WAI and now with supratherapeutic levels * Random level this AM is still above goal, and indicating the following PK parameters: ke ~ 0.011 hr-1, t1/2 ~63 hrs * Expect level to be above goal through today * Will continue to keep vanc on hold and check another random level with AM labs tomorrow * Re-dose at 15 mg/kg when level less than 15 mcg/mL Zosyn: * Q12 hr dosing - will continue same; appropriate for CrCl </=20 ml/min Pharmacy will continue to follow and will adjust dose/frequency as necessary. Thank you.
--- NOTE | 2018-04-02 11:16 | Hospitalist Progress Note ---
Hospitalist Progress Note Date of Service Apr 02, 2018. (Aggie Espinoza CRNP) Subjective Pt evaluation today including: conversation w/ patient, physical exam, chart review, lab review, review of inpatient medication list Voiding: no voiding problems Mr. Dumont has no complaints today, he is not having any pain. ROS Constitutional: no chills, aches, sweats or fever Respiratory: no sob,cough, sputum, or wheezing Cardiac: no chest pain, palpitations, edema, orthopnea or lightheadedness GI: no abdominal pain, nausea, vomiting, diarrhea or constipation : no dysuria or hesitancy Extremities: no joint pain or weakness Skin: no rash All other systems reviewed and negative (Aggie Espinoza CRNP) Medications Medications Administered Medications (Trade) Dose Ordered Sig/Fabrizio Route Start Time Stop Time Status Last Admin Dose Admin Morphine Sulfate (MoRPHine SULFATE INJ) 4 mg NOW STAT IV 03/23/18 10:45 03/23/18 10:47 DC 03/23/18 11:11 4 MG Ondansetron HCl (Zofran Inj) 4 mg NOW STAT IV 03/23/18 10:45 03/23/18 10:47 DC 03/23/18 11:11 4 MG Ceftriaxone Sodium (Rocephin Inj) 1 gm NOW STAT IV 03/23/18 11:21 03/23/18 11:22 DC 03/23/18 12:02 1 GM Morphine Sulfate (MoRPHine SULFATE INJ) 2 mg NOW STAT IV 03/23/18 12:57 03/23/18 12:58 DC 03/23/18 13:06 2 MG Heparin Sodium (Porcine) (Heparin Sq 5000 Unit/0.5ml) 5,000 unit Q8H SQ 03/24/18 08:00 04/23/18 07:59 04/02/18 09:23 5,000 UNIT Magnesium Hydroxide (Milk Of Magnesia Susp) 30 ml Q6H PRN PO 03/23/18 14:15 04/22/18 14:14 03/25/18 12:55 30 ML Ondansetron HCl (Zofran Inj) 4 mg Q6H PRN IV 03/23/18 14:15 04/22/18 14:14 03/28/18 19:47 4 MG Sodium Chloride 1,000 ml @ 100 mls/hr Q10H IV 03/23/18 17:00 03/26/18 11:21 DC 03/26/18 01:12 100 MLS/HR Oxycodone HCl (Roxicodone Immediate Rel Tab) 10 mg Q6 PRN PO 03/23/18 14:15 04/06/18 14:14 03/29/18 03:59 10 MG Morphine Sulfate (MoRPHine SULFATE INJ) 4 mg Q4H PRN IV 03/23/18 14:15 04/06/18 14:14 03/24/18 05:46 4 MG Ketorolac Tromethamine (Toradol Inj) 30 mg Q8 PRN IV 03/23/18 14:15 03/28/18 14:14 DC 03/28/18 00:01 30 MG Acetaminophen (Tylenol Tab) 1,000 mg Q6H PRN PO 03/23/18 14:45 04/22/18 14:44 03/28/18 02:13 1,000 MG Piperacillin Sod/ Tazobactam Sod 3.375 gm/Dextrose 115 ml @ 230 mls/hr TODAY@1730 ONCE IV 03/23/18 17:30 03/23/18 17:59 DC 03/23/18 17:55 230 MLS/HR Piperacillin Sod/ Tazobactam Sod 3.375 gm/Dextrose 115 ml @ 28.75 mls/ hr Q8 IV 03/23/18 22:00 03/30/18 10:15 DC 03/30/18 05:43 28.75 MLS/HR Phenazopyridine HCl (Pyridium Tab) 200 mg TID PRN PO 03/23/18 21:00 03/25/18 20:59 DC 03/23/18 22:06 200 MG Bupivacaine HCl (Marcaine 0.5% Pf Inj) 30 ml STK-MED ONCE .ROUTE 03/24/18 07:04 03/24/18 07:05 DC 03/24/18 08:51 30 ML Bacitracin (Bacitracin Inj) 50,000 units STK-MED ONCE .ROUTE 03/24/18 07:04 03/24/18 07:05 DC 03/24/18 08:51 50,000 UNITS Ondansetron HCl (Zofran Inj) 4 mg ONE PRN IV 03/24/18 08:15 03/24/18 09:56 DC 03/24/18 09:55 4 MG Vancomycin HCl 2000 mg/Sodium Chloride 540 ml @ 200 mls/hr Q12H IV 03/27/18 00:00 04/05/18 11:59 Future Hold 03/29/18 23:39 200 MLS/HR Vancomycin HCl 2500 mg/Sodium Chloride 550 ml @ 200 mls/hr TODAY@1230 IV 03/26/18 12:30 03/26/18 18:00 DC 03/26/18 12:28 200 MLS/HR Docusate Sodium (coLACE CAP) 100 mg 1600 ONCE PO 03/26/18 16:00 03/26/18 16:01 DC 03/26/18 17:37 100 MG Docusate Sodium (coLACE CAP) 100 mg BID PO 03/26/18 21:00 04/25/18 20:59 03/31/18 08:28 100 MG Heparin Sodium (Porcine) (Heparin 10 Unit/ ml 5 ml Flush) 5 ml PRN PRN FLUSH 03/29/18 10:15 04/28/18 10:14 04/02/18 05:23 5 ML Hydralazine HCl (HydrALAZINE INJ) 20 mg Q6 PRN IV. 03/30/18 07:45 04/29/18 07:44 03/31/18 08:06 20 MG Sodium Chloride 1,000 ml @ 150 mls/hr Q6H40M IV 03/30/18 09:15 03/31/18 09:28 DC 03/31/18 03:45 150 MLS/HR Sodium Chloride 1,000 ml @ 500 mls/hr Q2H ONCE IV 03/30/18 08:45 03/30/18 10:44 DC 03/30/18 09:05 500 MLS/HR Piperacillin Sod/ Tazobactam Sod 3.375 gm/Dextrose 115 ml @ 28.75 mls/ hr Q12H IV 03/30/18 22:00 04/09/18 21:59 04/01/18 21:35 28.75 MLS/HR (Aggie Espinoza CRNP) Objective Vital Signs Date Time Temp Pulse Resp B/P (MAP) Pulse Ox O2 Delivery O2 Flow Rate FiO2 04/02/18 08:28 97 Room Air 04/02/18 07:55 36.8 59 20 175/80 (111) 97 Room Air 04/01/18 23:45 Room Air 04/01/18 23:02 36.8 61 16 143/85 (104) 97 Room Air 04/01/18 15:40 Room Air 04/01/18 15:29 36.4 63 18 149/78 (101) 100 Room Air (Aggie Espinoza CRNP) Physical Exam Notes: General: no distress Eyes: normal inspection, PERLL Respiratory: chest non tender, clear to auscultation, normal breath sounds, no respiratory distress, no accessory muscle use Cardiac: regular rate and rhythm, no rub or gallop, systolic murmur llsb, no edema, no jvd GI/: active bowel sounds, no abd pain or tenderness, soft, non distended Extremities: normal range of motion, normal strength, non tender Neuro/Psych: alert and oriented x 3, normal mood and affect Skin: normal color, dry, scrotal abscess with small amount of serosanguineous drainage. (Aggie Espinoza CRNP) Laboratory Results Last 24 Hours Test 04/02/18 05:21 Sodium Level 143 mmol/L Potassium Level 3.7 mmol/L Chloride Level 110 mmol/L Carbon Dioxide Level 25 mmol/L Anion Gap 8.0 mmol/L Blood Urea Nitrogen 23 mg/dl Creatinine 5.58 mg/dl Est Creatinine Clear Calc Drug Dose 19.0 ml/min Estimated GFR () 12.9 Estimated GFR (Non- 11.2 BUN/Creatinine Ratio 4.1 Random Glucose 95 mg/dl Calcium Level 9.1 mg/dl Random Vancomycin Level 20.5 mcg/ml (Aggie Espinoza CRNP) Assessment and Plan Mr. Dumont is a 47 year old man here for scrotal abscess with subsequent WAI possibly secondary to vancomycin Acute kidney failure: Etiology unknown, - retroperitoneal US with hydronephrosis, appears euvolemic, electrolytes wnl - creatinine continues to increase, 5.58 today - ATN is possible as well as possible vancomycin nephropathy, avoid nephrotoxins , vancomycin on hold - nephrology consulted Scrotal abscess s/p Incision and drainage with cystoscopy and dilation of stricture and difficult jenkins placement 03/24/18 - continue wound care: change loose packing (one 4x4) once daily; change surrounding dressing 3x per day or as soiled. - Per urologist, do not manipulate Jenkins catheter, continue 2+ weeks since the day of procedure - needs follow up with reconstruction urologist - Joseluis or [facility]. - Urology team called [facility], spoke with on staff Physician Electronic Warfare Linguist Nathan, report states Nathan is familiar with patient. Discussed wound care instructions, importance of maintaining Jenkins catheter, and necessity of referral to reconstruction urologist. Nathan will be arranging referral to [place]. - per , possible concern for urine in the rectum/fistula Possible, however patient will need to heal from this infection, I&D/catheter placement for 3-4 weeks before repair would be advisable. - Repair would take place with reconstruction urologist at [place]. - Corynebacterium grown abscess culture - continue Zosyn, ID onboard - PICC placed, will need at least 2 weeks antibiotics - fdc has abx for discharge - per ID: will need min 14 days need to through apr 09, 2018, will need weekly cbc, cmp, vanco trough maintain, (Aggie Espinoza ., DYAN) [employer] Physician Supervision Note: I discussed with Aggie Espinoza [employer] and agree with findings and plan as documented in the note. Any exceptions or clarifications are listed here: None Patient is here with the abscesses perineal area status post surgical resection however did suffer some acute kidney injury likely from vancomycin he is having the ability to maintain his volume status acid-base balance and potassium without difficulty we are continuing to watch his renal function improved with supportive care and also re-dosing his vancomycin once his levels are low enough Documented By: Chencho Curtis (Chencho Curtis M.D.)
[2018-04-02] MEDS: PIPERACILL/TAZOBAC IV 3.375 GM in D5W 100ML IV SCH ×2 (11:42→21:48)
--- NOTE | 2018-04-02 15:01 | Nephrology Progress Note ---
Nephrology Progress Note Date of Service Apr 02, 2018. Chief Complaint F/U for WAI Subjective Fredis was seen and examined in his room this morning. Examined in his room this morning. No overnight events. Denies any shortness of breath or chest pain. Remain non-oliguric with. Renal function seems to be stabilizing creatinine staying at 5.8 Review of Systems A complete review of systems was performed. Pertinent positives are noted above. All other systems are negative. Vital Signs Last 8 Hrs Date Time Temp Pulse Resp B/P (MAP) Pulse Ox O2 Delivery O2 Flow Rate FiO2 04/02/18 08:28 97 Room Air 04/02/18 07:55 36.8 59 20 175/80 (111) 97 Room Air Last Recorded Weight Weight (Kilograms): 103.100 Family History Diabetes mellitus Social History Occupation: other Laboratory Results Past 24 Hours 04/02/18 05:21 Test 04/02/18 05:21 Anion Gap 8.0 mmol/L (3-11) Est Creatinine Clear Calc Drug Dose 19.0 ml/min Estimated GFR () 12.9 Estimated GFR (Non- 11.2 BUN/Creatinine Ratio 4.1 (10-20) Calcium Level 9.1 mg/dl (8.5-10.1) Random Vancomycin Level 20.5 mcg/ml Allergies Coded Allergies: No Known Allergies (Unverified , 02/01/18) Medications Current Inpatient Medications Medications (Trade) Dose Ordered Sig/Fabrizio Route Start Time Stop Time Status Last Admin Dose Admin Heparin Sodium (Porcine) (Heparin Sq 5000 Unit/0.5ml) 5,000 unit Q8H SQ 03/24/18 08:00 04/23/18 07:59 04/02/18 09:23 5,000 UNIT Al Hydrox/Mg Hydrox/Simethicone (Maalox Max Susp) 15 ml Q4H PRN PO 03/23/18 14:15 04/22/18 14:14 Magnesium Hydroxide (Milk Of Magnesia Susp) 30 ml Q6H PRN PO 03/23/18 14:15 04/22/18 14:14 03/25/18 12:55 30 ML Ondansetron HCl (Zofran Inj) 4 mg Q6H PRN IV 03/23/18 14:15 04/22/18 14:14 03/28/18 19:47 4 MG Miscellaneous Information (Consult) 1 [facility] PRN N/A 03/23/18 14:15 04/22/18 14:14 Oxycodone HCl (Roxicodone Immediate Rel Tab) 10 mg Q6 PRN PO 03/23/18 14:15 04/06/18 14:14 03/29/18 03:59 10 MG Morphine Sulfate (MoRPHine SULFATE INJ) 2 mg Q4H PRN IV 03/23/18 14:15 04/06/18 14:14 Morphine Sulfate (MoRPHine SULFATE INJ) 4 mg Q4H PRN IV 03/23/18 14:15 04/06/18 14:14 03/24/18 05:46 4 MG Acetaminophen (Tylenol Tab) 1,000 mg Q6H PRN PO 03/23/18 14:45 04/22/18 14:44 03/28/18 02:13 1,000 MG Vancomycin HCl 2000 mg/Sodium Chloride 540 ml @ 200 mls/hr Q12H IV 03/27/18 00:00 04/05/18 11:59 Future Hold 03/29/18 23:39 200 MLS/HR Vancomycin HCl (Consult) 1 [facility] PRN N/A 03/26/18 12:00 04/25/18 11:59 Docusate Sodium (coLACE CAP) 100 mg BID PO 03/26/18 21:00 04/25/18 20:59 03/31/18 08:28 100 MG Polyethylene (Miralax Powder Packet) 17 gm DAILY PRN PO 03/26/18 15:45 04/25/18 15:44 Heparin Sodium (Porcine) (Heparin 10 Unit/ ml 5 ml Flush) 5 ml PRN PRN FLUSH 03/29/18 10:15 04/28/18 10:14 04/02/18 05:23 5 ML Hydralazine HCl (HydrALAZINE INJ) 20 mg Q6 PRN IV. 03/30/18 07:45 04/29/18 07:44 03/31/18 08:06 20 MG Piperacillin Sod/ Tazobactam Sod 3.375 gm/Dextrose 115 ml @ 28.75 mls/ hr Q12H IV 03/30/18 22:00 04/09/18 21:59 04/01/18 21:35 28.75 MLS/HR Impression (1) Acute kidney injury (2) Ureteral stricture (3) Perineal abscess Fredis is a non-diabetic 47-year-old male with a ureteral stricture and perineal abscess. Infection is being treated with vancomycin and zosyn. Blood cultures have been negative.Hospital course complicated by non- oliguric WAI. BP and volume status remain appropriate. BP slightly elevated, currently being treated with PRN hydralazine. Metabolic profile is otherwise acceptable. There is no current indication for dialysis. The rate of rise in serum creatinine was rapid but has started to slow Etiology unclear. Renal US demonstrated Alejo balloon to be in prostate but kidneys not obstructed. Urine output has been appropriate. CPK was normal. Urine microscopy is acellular. ATN is possible as well as possible vancomycin nephropathy. Medications are currently appropriately dosed for kidney function. Volume status is acceptable and IVF have been stopped. Prospective monitoring will be provided with a repeat metabolic profile tomorrow AM. Recommendations --creatinine seems to have plateaued, staying around 5.8 with no further increase over last 24 hours. Electrolyte acceptable. Blood pressure slightly elevated however volume status acceptable, remain non-oliguric. --continue to monitor renal function, electrolyte and volume status, hopefully renal function will start to improved. --avoid nephrotoxic medications --avoid further IV fluid Will follow.
[2018-04-02 15:14] VITALS: BP 165/96; PULSE 57; TEMP 37.1; O2SAT 100
[2018-04-02 23:50] VITALS: BP 168/94; PULSE 58; TEMP 36.6; O2SAT 98
[2018-04-03] VITALS: BP 147/87
[2018-04-03] MEDS: HEPARIN SOD 5000 UNIT/0.5 ML CARP SQ SCH ×3 (00:33→17:48)
[2018-04-03 06:38] LABS: CALCIUM 9.5 mg/dl (8.5-10.1); CREATININE 5.4 mg/dl (0.60-1.40); POTASSIUM 3.9 mmol/L (3.5-5.1)
[2018-04-03 07:37] VITALS: BP 165/94; PULSE 62; TEMP 37; O2SAT 99
[2018-04-03] MEDS: DOCUSATE SODIUM 100 MG CAP PO SCH ×2 (09:40→21:00)
[2018-04-03] MEDS: PIPERACILL/TAZOBAC IV 3.375 GM in D5W 100ML IV SCH ×2 (09:40→22:11)
[2018-04-03] MEDS: AMLODIPINE BESYLATE 5 MG TAB PO SCH (10:05)
--- NOTE | 2018-04-03 10:19 | Hospitalist Progress Note ---
Hospitalist Progress Note Date of Service Apr 03, 2018. (Aggie Espinoza .DYAN) Subjective Pt evaluation today including: conversation w/ patient, physical exam, chart review, lab review, review of inpatient medication list Voiding: jenkins catheter in place Mr. Dumont has no complaints. I did spend time answering questions about his treatment plan. ROS Constitutional: no chills, aches, sweats or fever Respiratory: no sob,cough, sputum, or wheezing Cardiac: no chest pain, palpitations, edema, orthopnea or lightheadedness GI: no abdominal pain, nausea, vomiting, diarrhea or constipation : no dysuria or hesitancy Extremities: no joint pain or weakness Skin: no rash All other systems reviewed and negative (Aggie Espinoza CRNP) Medications Medications Administered Medications (Trade) Dose Ordered Sig/Fabrizio Route Start Time Stop Time Status Last Admin Dose Admin Morphine Sulfate (MoRPHine SULFATE INJ) 4 mg NOW STAT IV 03/23/18 10:45 03/23/18 10:47 DC 03/23/18 11:11 4 MG Ondansetron HCl (Zofran Inj) 4 mg NOW STAT IV 03/23/18 10:45 03/23/18 10:47 DC 03/23/18 11:11 4 MG Ceftriaxone Sodium (Rocephin Inj) 1 gm NOW STAT IV 03/23/18 11:21 03/23/18 11:22 DC 03/23/18 12:02 1 GM Morphine Sulfate (MoRPHine SULFATE INJ) 2 mg NOW STAT IV 03/23/18 12:57 03/23/18 12:58 DC 03/23/18 13:06 2 MG Heparin Sodium (Porcine) (Heparin Sq 5000 Unit/0.5ml) 5,000 unit Q8H SQ 03/24/18 08:00 04/23/18 07:59 04/03/18 08:14 5,000 UNIT Magnesium Hydroxide (Milk Of Magnesia Susp) 30 ml Q6H PRN PO 03/23/18 14:15 04/22/18 14:14 03/25/18 12:55 30 ML Ondansetron HCl (Zofran Inj) 4 mg Q6H PRN IV 03/23/18 14:15 04/22/18 14:14 03/28/18 19:47 4 MG Sodium Chloride 1,000 ml @ 100 mls/hr Q10H IV 03/23/18 17:00 03/26/18 11:21 DC 03/26/18 01:12 100 MLS/HR Oxycodone HCl (Roxicodone Immediate Rel Tab) 10 mg Q6 PRN PO 03/23/18 14:15 04/06/18 14:14 03/29/18 03:59 10 MG Morphine Sulfate (MoRPHine SULFATE INJ) 4 mg Q4H PRN IV 03/23/18 14:15 04/06/18 14:14 03/24/18 05:46 4 MG Ketorolac Tromethamine (Toradol Inj) 30 mg Q8 PRN IV 03/23/18 14:15 03/28/18 14:14 DC 03/28/18 00:01 30 MG Acetaminophen (Tylenol Tab) 1,000 mg Q6H PRN PO 03/23/18 14:45 04/22/18 14:44 03/28/18 02:13 1,000 MG Piperacillin Sod/ Tazobactam Sod 3.375 gm/Dextrose 115 ml @ 230 mls/hr TODAY@1730 ONCE IV 03/23/18 17:30 03/23/18 17:59 DC 03/23/18 17:55 230 MLS/HR Piperacillin Sod/ Tazobactam Sod 3.375 gm/Dextrose 115 ml @ 28.75 mls/ hr Q8 IV 03/23/18 22:00 03/30/18 10:15 DC 03/30/18 05:43 28.75 MLS/HR Phenazopyridine HCl (Pyridium Tab) 200 mg TID PRN PO 03/23/18 21:00 03/25/18 20:59 DC 03/23/18 22:06 200 MG Bupivacaine HCl (Marcaine 0.5% Pf Inj) 30 ml STK-MED ONCE .ROUTE 03/24/18 07:04 03/24/18 07:05 DC 03/24/18 08:51 30 ML Bacitracin (Bacitracin Inj) 50,000 units STK-MED ONCE .ROUTE 03/24/18 07:04 03/24/18 07:05 DC 03/24/18 08:51 50,000 UNITS Ondansetron HCl (Zofran Inj) 4 mg ONE PRN IV 03/24/18 08:15 03/24/18 09:56 DC 03/24/18 09:55 4 MG Vancomycin HCl 2000 mg/Sodium Chloride 540 ml @ 200 mls/hr Q12H IV 03/27/18 00:00 04/05/18 11:59 Future Hold 03/29/18 23:39 200 MLS/HR Vancomycin HCl 2500 mg/Sodium Chloride 550 ml @ 200 mls/hr TODAY@1230 IV 03/26/18 12:30 03/26/18 18:00 DC 03/26/18 12:28 200 MLS/HR Docusate Sodium (coLACE CAP) 100 mg 1600 ONCE PO 03/26/18 16:00 03/26/18 16:01 DC 03/26/18 17:37 100 MG Docusate Sodium (coLACE CAP) 100 mg BID PO 03/26/18 21:00 04/25/18 20:59 03/31/18 08:28 100 MG Heparin Sodium (Porcine) (Heparin 10 Unit/ ml 5 ml Flush) 5 ml PRN PRN FLUSH 03/29/18 10:15 04/28/18 10:14 04/03/18 01:58 5 ML Hydralazine HCl (HydrALAZINE INJ) 20 mg Q6 PRN IV. 03/30/18 07:45 04/29/18 07:44 03/31/18 08:06 20 MG Sodium Chloride 1,000 ml @ 150 mls/hr Q6H40M IV 03/30/18 09:15 03/31/18 09:28 DC 03/31/18 03:45 150 MLS/HR Sodium Chloride 1,000 ml @ 500 mls/hr Q2H ONCE IV 03/30/18 08:45 03/30/18 10:44 DC 03/30/18 09:05 500 MLS/HR Piperacillin Sod/ Tazobactam Sod 3.375 gm/Dextrose 115 ml @ 28.75 mls/ hr Q12H IV 03/30/18 22:00 04/09/18 21:59 04/03/18 09:40 28.75 MLS/HR Amlodipine Besylate (Norvasc Tab) 5 mg QAM PO 04/03/18 09:00 05/03/18 08:59 04/03/18 10:05 5 MG (Aggie Espinoza CRNP) Objective Vital Signs Date Time Temp Pulse Resp B/P (MAP) Pulse Ox O2 Delivery O2 Flow Rate FiO2 04/03/18 07:37 37.0 62 17 165/94 (117) 99 04/03/18 00:00 147/87 (107) 04/02/18 23:50 36.6 58 16 168/94 (118) 98 Room Air 04/02/18 23:45 Room Air 04/02/18 15:40 Room Air 04/02/18 15:14 37.1 57 18 165/96 (119) 100 Room Air (Aggie Espinoza CRNP) Physical Exam Notes: General: no distress Eyes: normal inspection, PERLL Respiratory: chest non tender, clear to auscultation, normal breath sounds, no respiratory distress, no accessory muscle use Cardiac: regular rate and rhythm, no rub or gallop, no murmur, no edema, no jvd GI/: active bowel sounds, no abd pain or tenderness, soft, non distended Extremities: normal range of motion, normal strength, non tender Neuro/Psych: alert and oriented x 3, normal mood and affect Skin: normal color, dry (Aggie Espinoza CRNP) Laboratory Results Last 24 Hours Test 04/03/18 05:38 Sodium Level 142 mmol/L Potassium Level 3.9 mmol/L Chloride Level 108 mmol/L Carbon Dioxide Level 26 mmol/L Anion Gap 9.0 mmol/L Blood Urea Nitrogen 23 mg/dl Creatinine 5.40 mg/dl Est Creatinine Clear Calc Drug Dose 19.7 ml/min Estimated GFR () 13.5 Estimated GFR (Non- 11.6 BUN/Creatinine Ratio 4.2 Random Glucose 90 mg/dl Calcium Level 9.5 mg/dl Random Vancomycin Level 15.6 mcg/ml (Aggie Espinoza CRNP) Assessment and Plan Mr. Dumont is a 47 year old man here for scrotal abscess with subsequent WAI possibly secondary to vancomycin Acute kidney failure: Etiology unknown, - retroperitoneal US with hydronephrosis, appears euvolemic, electrolytes wnl - creatinine peaked at 5.58, 5.4 today - ATN is possible as well as possible vancomycin nephropathy, avoid nephrotoxins , vancomycin on hold - nephrology consulted - no further IVF, no need for dialysis at this point Scrotal abscess s/p Incision and drainage with cystoscopy and dilation of stricture and difficult jenkins placement 03/24/18 - continue wound care: change loose packing (one 4x4) once daily; change surrounding dressing 3x per day or as soiled. - Per urologist, do not manipulate Jenkins catheter, continue 2+ weeks since the day of procedure - needs follow up with reconstruction urologist - Joseluis or Meghan. - Urology team called [facility], spoke with on staff Physician Communications Equipment Installer Nathan, report states Nathan is familiar with patient. Discussed wound care instructions, importance of maintaining Jenkins catheter, and necessity of referral to reconstruction urologist. Nathan will be arranging referral to [facility]. - per , possible concern for urine in the rectum/fistula Possible, however patient will need to heal from this infection, I&D/catheter placement for 3-4 weeks before repair would be advisable. - Repair would take place with reconstruction urologist at [facility]. - Corynebacterium grown abscess culture - continue Zosyn, ID onboard - PICC placed, will need at least 2 weeks antibiotics - fdc has abx for discharge - per ID: will need min 14 days through apr 09, will need weekly cbc, cmp, vanco trough to maintain, HTN - amlodipine initiated by nephrology, continue hydralazine prn Full code DVT proph - heparin (Aggie Espinoza ., DYAN) SILK CONDITIONER Physician Supervision Note: I discussed with Aggie Espinoza SILK CONDITIONER and agree with findings and plan as documented in the note. Any exceptions or clarifications are listed here: None Patient's renal function is continuing to be elevated he however is maintaining volume status and he acid-base balance. His vancomycin level is now below acceptable trough limits however we will restart gram-positive coverage with daptomycin Documented By: Chencho Curtis (Chencho Curtis M.D.)
--- NOTE | 2018-04-03 11:14 | Nephrology Progress Note ---
Nephrology Progress Note Date of Service Apr 03, 2018. Chief Complaint F/U for WAI Subjective Fredis was seen and examined in his room this morning. Examined in his room this morning. No overnight events. Denies any shortness of breath or chest pain. Remain non-oliguric with. Renal function started to improve, creatinine 5.4<-- 5.8. Blood pressure running high. Review of Systems A complete review of systems was performed. Pertinent positives are noted above. All other systems are negative. Vital Signs Last 8 Hrs Date Time Temp Pulse Resp B/P (MAP) Pulse Ox O2 Delivery O2 Flow Rate FiO2 04/03/18 07:37 37.0 62 17 165/94 (117) 99 Last Recorded Weight Weight (Kilograms): 103.100 Physical Exam GENERAL: Middle-aged male, AAA x 3, pleasant, healthy-appearing, not in any distress. NECK: Supple, no JVD. RESPIRATORY: Normal breathing efforts, no accessory muscle use, clear to auscultation bilaterally, no wheezes or rales. CARDIOVASCULAR: S1, S2 normal, rate rhythm regular. EXTREMITY: No lower extremity edema NEURO: speech fluent. PSYCHIATRY: Normal mood and judgment Family History Diabetes mellitus Social History Occupation: other Laboratory Results Past 24 Hours 04/03/18 05:38 Test 04/03/18 05:38 Anion Gap 9.0 mmol/L (3-11) Est Creatinine Clear Calc Drug Dose 19.7 ml/min Estimated GFR () 13.5 Estimated GFR (Non- 11.6 BUN/Creatinine Ratio 4.2 (10-20) Calcium Level 9.5 mg/dl (8.5-10.1) Random Vancomycin Level 15.6 mcg/ml Allergies Coded Allergies: No Known Allergies (Unverified , 02/01/18) Medications Current Inpatient Medications Medications (Trade) Dose Ordered Sig/Fabrizio Route Start Time Stop Time Status Last Admin Dose Admin Heparin Sodium (Porcine) (Heparin Sq 5000 Unit/0.5ml) 5,000 unit Q8H SQ 03/24/18 08:00 04/23/18 07:59 04/03/18 08:14 5,000 UNIT Al Hydrox/Mg Hydrox/Simethicone (Maalox Max Susp) 15 ml Q4H PRN PO 03/23/18 14:15 04/22/18 14:14 Magnesium Hydroxide (Milk Of Magnesia Susp) 30 ml Q6H PRN PO 03/23/18 14:15 04/22/18 14:14 03/25/18 12:55 30 ML Ondansetron HCl (Zofran Inj) 4 mg Q6H PRN IV 03/23/18 14:15 04/22/18 14:14 03/28/18 19:47 4 MG Miscellaneous Information (Consult) 1 ea PRN N/A 03/23/18 14:15 04/22/18 14:14 Oxycodone HCl (Roxicodone Immediate Rel Tab) 10 mg Q6 PRN PO 03/23/18 14:15 04/06/18 14:14 03/29/18 03:59 10 MG Morphine Sulfate (MoRPHine SULFATE INJ) 2 mg Q4H PRN IV 03/23/18 14:15 04/06/18 14:14 Morphine Sulfate (MoRPHine SULFATE INJ) 4 mg Q4H PRN IV 03/23/18 14:15 04/06/18 14:14 03/24/18 05:46 4 MG Acetaminophen (Tylenol Tab) 1,000 mg Q6H PRN PO 03/23/18 14:45 04/22/18 14:44 03/28/18 02:13 1,000 MG Vancomycin HCl 2000 mg/Sodium Chloride 540 ml @ 200 mls/hr Q12H IV 03/27/18 00:00 04/05/18 11:59 Future Hold 03/29/18 23:39 200 MLS/HR Vancomycin HCl (Consult) 1 [facility] PRN N/A 03/26/18 12:00 04/25/18 11:59 Docusate Sodium (coLACE CAP) 100 mg BID PO 03/26/18 21:00 04/25/18 20:59 03/31/18 08:28 100 MG Polyethylene (Miralax Powder Packet) 17 gm DAILY PRN PO 03/26/18 15:45 04/25/18 15:44 Heparin Sodium (Porcine) (Heparin 10 Unit/ ml 5 ml Flush) 5 ml PRN PRN FLUSH 03/29/18 10:15 04/28/18 10:14 04/03/18 01:58 5 ML Hydralazine HCl (HydrALAZINE INJ) 20 mg Q6 PRN IV. 03/30/18 07:45 04/29/18 07:44 03/31/18 08:06 20 MG Piperacillin Sod/ Tazobactam Sod 3.375 gm/Dextrose 115 ml @ 28.75 mls/ hr Q12H IV 03/30/18 22:00 04/09/18 21:59 04/02/18 21:48 28.75 MLS/HR Impression (1) Acute kidney injury (2) Ureteral stricture (3) Perineal abscess Fredis is a non-diabetic 47-year-old male with a ureteral stricture and perineal abscess. Infection is being treated with vancomycin and zosyn. Blood cultures have been negative.Hospital course complicated by non- oliguric WAI. BP and volume status remain appropriate. BP slightly elevated, currently being treated with PRN hydralazine. Metabolic profile is otherwise acceptable. There is no current indication for dialysis. The rate of rise in serum creatinine was rapid but has started to slow Etiology unclear. Renal US demonstrated Alejo balloon to be in prostate but kidneys not obstructed. Urine output has been appropriate. CPK was normal. Urine microscopy is acellular. ATN is possible as well as possible vancomycin nephropathy. Medications are currently appropriately dosed for kidney function. Volume status is acceptable and IVF have been stopped. Prospective monitoring will be provided with a repeat metabolic profile tomorrow AM. Recommendations --creatinine 5.4 <--5.8 Electrolyte acceptable. Blood pressure elevated however volume status acceptable, remain non-oliguric. --start on amlodipine 5 mg /d --continue to monitor renal function, electrolyte and volume status, hopefully renal function will start to improved. --avoid nephrotoxic medications --avoid further IV fluid Will follow.
[2018-04-03 11:58] VITALS: BP 152/88
[2018-04-03 15:38] VITALS: BP 142/79; PULSE 60; TEMP 36.7; O2SAT 96
[2018-04-03] MEDS ORDERED: DAPTOMYCIN CONSULT ACTIVE PRN (16:30)
[2018-04-03] MEDS: DAPTOmycin IV 275 MG in SYRINGE 0 ML IV SCH (17:49)
[2018-04-03 23:51] VITALS: BP 146/83; PULSE 68; TEMP 36.8; O2SAT 97
[2018-04-04] MEDS: HEPARIN SOD 5000 UNIT/0.5 ML CARP SQ SCH ×4 (00:13→18:20)
[2018-04-04 06:10] LABS: HEMATOCRIT 32.1 % (42-52); HEMOGLOBIN 10.8 g/dL (14.0-18.0); MEAN CORPUSCULAR HEMOGLOBIN 29.3 pg (25-34); MEAN CORPUSCULAR HGB CONC 33.6 g/dl (32-36); MEAN PLATELET VOLUME 9.7 fL (7.4-10.4); PLATELET COUNT 354 K/uL (130-400); RED CELL DISTRIBUTION WIDTH CV 14.9 % (11.5-14.5); RED CELL DISTRIBUTION WIDTH SD 47.6 fL (36.4-46.3); WHITE BLOOD COUNT 8.12 K/uL (4.8-10.8)
[2018-04-04 06:56] LABS: CALCIUM 9.3 mg/dl (8.5-10.1); CREATININE 5.26 mg/dl (0.60-1.40); POTASSIUM 3.8 mmol/L (3.5-5.1)
[2018-04-04 07:44] VITALS: BP 161/93; PULSE 58; TEMP 36.8; O2SAT 98
[2018-04-04] MEDS: DOCUSATE SODIUM 100 MG CAP PO SCH ×2 (08:13→21:00)
[2018-04-04] MEDS: AMLODIPINE BESYLATE 5 MG TAB PO SCH (08:14)
--- NOTE | 2018-04-04 09:00 | Progress Note ---
Subjective Date of Service: Apr 04, 2018. Subjective Pt evaluation today including: conversation w/ patient, physical exam, chart review, lab review Pain: Mod at tip of penis. Voiding: jenkins catheter in place Patient with sudden WAI after abx and I&D for large scrotal abscess and severe pendulous urethra strictures. Was on vanc. Jenkins had been in prostate, but repositioned. Still draining. Problem List Medical Problems: (1) Pyocele Status: Acute (2) Testicular pain, left Status: Acute (3) Urinary retention Status: Acute Review of Systems All Other Systems: Reviewed and Negative Objective Vital Signs Date Time Temp Pulse Resp B/P (MAP) Pulse Ox O2 Delivery O2 Flow Rate FiO2 04/04/18 07:59 Room Air 04/04/18 07:44 36.8 58 18 161/93 (115) 98 Room Air 04/04/18 00:10 Room Air 04/03/18 23:51 36.8 68 14 146/83 (104) 97 Room Air 04/03/18 15:38 36.7 60 16 142/79 (100) 96 Room Air 04/03/18 15:10 Room Air 04/03/18 11:58 152/88 (109) Physical Exam General Appearance: WD/WN, no apparent distress Eyes: normal inspection ENT: hearing grossly normal Neck: supple, no JVD Respiratory/Chest: no respiratory distress Cardiovascular: regular rate, rhythm Extremities: normal range of motion Neurologic/Psychiatric: nitrocellulose maker II-XII nml as tested, no motor/sensory deficits, normal mood/affect, oriented x 3 Skin: normal color Lymphatic: no adenopathy Laboratory Results Last 24 Hours Test 04/04/18 05:29 White Blood Count 8.12 K/uL Red Blood Count 3.69 M/uL Hemoglobin 10.8 g/dL Hematocrit 32.1 % Mean Corpuscular Volume 87.0 fL Mean Corpuscular Hemoglobin 29.3 pg Mean Corpuscular Hemoglobin Concent 33.6 g/dl RDW Standard Deviation 47.6 fL RDW Coefficient of Variation 14.9 % Platelet Count 354 K/uL Mean Platelet Volume 9.7 fL Sodium Level 141 mmol/L Potassium Level 3.8 mmol/L Chloride Level 107 mmol/L Carbon Dioxide Level 24 mmol/L Anion Gap 10.0 mmol/L Blood Urea Nitrogen 24 mg/dl Creatinine 5.26 mg/dl Est Creatinine Clear Calc Drug Dose 20.2 ml/min Estimated GFR () 13.9 Estimated GFR (Non- 12.0 BUN/Creatinine Ratio 4.5 Random Glucose 93 mg/dl Calcium Level 9.3 mg/dl Assessment and Plan 1. Large scrotal abscess s/p ID and debridement 2. 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 WAI POD11 - Will need to assess imaging to check any further issues. Cr improving slowly. Will need catheter for forseeable future for drainage. May need to consider other options for drainage if large dilated prostate urethra may make balloon placement difficult for full drainage. 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 POD1. Doing well. will need to have jenkins for approx 2 weeks, possibly longer. Concern for further urethral issues. Will likely need to have assessment with reconstruction specialist. Continue local wound care. Maintain packing and change 1-2 x every day. Will need to heal by secondary intent. Plan to finish abx per medicine. Darby or Meghan likely has nearest reconstruction specialist. Would likely need referral. Continued [facility] stay due to: multiple IV medications needed Discharge planning: home
[2018-04-04 10:03] VITALS: BP 138/87
[2018-04-04] MEDS: PIPERACILL/TAZOBAC IV 3.375 GM in D5W 100ML IV SCH ×2 (10:23→22:19)
--- NOTE | 2018-04-04 10:24 | Nephrology Progress Note ---
Nephrology Progress Note Date of Service Apr 04, 2018. Chief Complaint F/U for WAI Subjective Fredis was seen and examined in his room this morning. Has been otherwise doing well, asymptomatic. Blood pressure still slightly elevated. Renal function continues to improve but has been very slow to improve. Remain non- oliguric. Electrolyte acceptable Review of Systems A complete review of systems was performed. Pertinent positives are noted above. All other systems are negative. Vital Signs Last 8 Hrs Date Time Temp Pulse Resp B/P (MAP) Pulse Ox O2 Delivery O2 Flow Rate FiO2 04/04/18 07:59 Room Air 04/04/18 07:44 36.8 58 18 161/93 (115) 98 Room Air Last Recorded Weight Weight (Kilograms): 103.100 Physical Exam GENERAL: Middle-aged male, AAA x 3, pleasant, healthy-appearing, not in any distress. NECK: Supple, no JVD. RESPIRATORY: Normal breathing efforts, no accessory muscle use, clear to auscultation bilaterally, no wheezes or rales. CARDIOVASCULAR: S1, S2 normal, rate rhythm regular. EXTREMITY: No lower extremity edema NEURO: speech fluent. PSYCHIATRY: Normal mood and judgment Family History Diabetes mellitus Social History Occupation: other Laboratory Results Past 24 Hours 04/04/18 05:29 04/04/18 05:29 Test 04/04/18 05:29 Red Blood Count 3.69 M/uL (4.7-6.1) Mean Corpuscular Volume 87.0 fL (80-100) Mean Corpuscular Hemoglobin 29.3 pg (25-34) Mean Corpuscular Hemoglobin Concent 33.6 g/dl (32-36) RDW Standard Deviation 47.6 fL (36.4-46.3) RDW Coefficient of Variation 14.9 % (11.5-14.5) Mean Platelet Volume 9.7 fL (7.4-10.4) Anion Gap 10.0 mmol/L (3-11) Est Creatinine Clear Calc Drug Dose 20.2 ml/min Estimated GFR () 13.9 Estimated GFR (Non- 12.0 BUN/Creatinine Ratio 4.5 (10-20) Calcium Level 9.3 mg/dl (8.5-10.1) Allergies Coded Allergies: No Known Allergies (Unverified , 02/01/18) Medications Current Inpatient Medications Medications (Trade) Dose Ordered Sig/Fabrizio Route Start Time Stop Time Status Last Admin Dose Admin Heparin Sodium (Porcine) (Heparin Sq 5000 Unit/0.5ml) 5,000 unit Q8H SQ 03/24/18 08:00 04/23/18 07:59 04/04/18 00:13 5,000 UNIT Al Hydrox/Mg Hydrox/Simethicone (Maalox Max Susp) 15 ml Q4H PRN PO 03/23/18 14:15 04/22/18 14:14 Magnesium Hydroxide (Milk Of Magnesia Susp) 30 ml Q6H PRN PO 03/23/18 14:15 04/22/18 14:14 03/25/18 12:55 30 ML Ondansetron HCl (Zofran Inj) 4 mg Q6H PRN IV 03/23/18 14:15 04/22/18 14:14 03/28/18 19:47 4 MG Miscellaneous Information (Consult) 1 ea UD PRN N/A 03/23/18 14:15 04/22/18 14:14 Oxycodone HCl (Roxicodone Immediate Rel Tab) 10 mg Q6 PRN PO 03/23/18 14:15 04/06/18 14:14 03/29/18 03:59 10 MG Morphine Sulfate (MoRPHine SULFATE INJ) 2 mg Q4H PRN IV 03/23/18 14:15 04/06/18 14:14 Morphine Sulfate (MoRPHine SULFATE INJ) 4 mg Q4H PRN IV 03/23/18 14:15 04/06/18 14:14 03/24/18 05:46 4 MG Acetaminophen (Tylenol Tab) 1,000 mg Q6H PRN PO 03/23/18 14:45 04/22/18 14:44 03/28/18 02:13 1,000 MG Docusate Sodium (coLACE CAP) 100 mg BID PO 03/26/18 21:00 04/25/18 20:59 03/31/18 08:28 100 MG Polyethylene (Miralax Powder Packet) 17 gm DAILY PRN PO 03/26/18 15:45 04/25/18 15:44 Heparin Sodium (Porcine) (Heparin 10 Unit/ ml 5 ml Flush) 5 ml PRN PRN FLUSH 03/29/18 10:15 04/28/18 10:14 04/04/18 02:04 5 ML Hydralazine HCl (HydrALAZINE INJ) 20 mg Q6 PRN IV. 03/30/18 07:45 04/29/18 07:44 03/31/18 08:06 20 MG Piperacillin Sod/ Tazobactam Sod 3.375 gm/Dextrose 115 ml @ 28.75 mls/ hr Q12H IV 03/30/18 22:00 04/09/18 21:59 04/03/18 22:11 28.75 MLS/HR Amlodipine Besylate (Norvasc Tab) 5 mg QAM PO 04/03/18 09:00 05/03/18 08:59 04/04/18 08:14 5 MG Daptomycin 275 mg/ Syringe 5.5 ml @ 5 mls/min Q48H IV 04/03/18 17:00 04/09/18 23:59 04/03/18 17:49 5 MLS/MIN Daptomycin (Consult) 1 ea UD PRN N/A 04/03/18 16:30 05/03/18 16:29 Impression (1) Acute kidney injury (2) Ureteral stricture (3) Perineal abscess Fredis is a non-diabetic 47-year-old male with a ureteral stricture and perineal abscess. Infection is being treated with vancomycin and zosyn. Blood cultures have been negative.Hospital course complicated by non- oliguric WAI. BP and volume status remain appropriate. BP slightly elevated, currently being treated with PRN hydralazine. Metabolic profile is otherwise acceptable. There is no current indication for dialysis. The rate of rise in serum creatinine was rapid but has started to slow Etiology unclear. Renal US demonstrated Alejo balloon to be in prostate but kidneys not obstructed. Urine output has been appropriate. CPK was normal. Urine microscopy is acellular. ATN is possible as well as possible vancomycin nephropathy. Medications are currently appropriately dosed for kidney function. Volume status is acceptable and IVF have been stopped. Prospective monitoring will be provided with a repeat metabolic profile tomorrow AM. Recommendations --slow recovery from recent acute kidney injury, creatinine 5.3 <-- 5.4 <--5.8 Electrolyte acceptable. Blood pressure elevated however volume status acceptable, remain non-oliguric. -- continue on amlodipine 5 mg /d --continue to monitor renal function, electrolyte and volume status --avoid nephrotoxic medications --avoid further IV fluid Will follow.
--- NOTE | 2018-04-04 12:05 | DIAGNOSTIC IMAGING REPORT ---
CT SCAN OF THE ABDOMEN AND PELVIS WITHOUT CONTRAST CLINICAL HISTORY: Unexplained renal insufficiency history of urethral stricture. PERONEAL CELLULITIS. COMPARISON STUDY: Pelvic CT scan dated March 23, 2018 TECHNIQUE: CT scan of the abdomen and pelvis was performed from the lung bases to the proximal femurs. Images are reviewed in the axial, sagittal, and coronal planes. IV contrast was not administered for this examination. A dose lowering technique was utilized adhering to the principles of ALARA. CT DOSE: 1145.25 mGycm FINDINGS: Lower chest: The heart is normal in size and configuration, without pericardial effusion. The lung bases and pleural spaces are clear. Liver: The unenhanced liver is normal in size, contour, and attenuation. There is no intrahepatic biliary ductal dilatation. Gallbladder: Unremarkable. Spleen: Normal in size and attenuation. Pancreas: Unremarkable. Adrenal glands: Unremarkable. Kidneys: No renal masses are visualized this noncontrast study. There is no hydronephrosis. There is a punctate nonobstructing left renal calculus. No ureteral or bladder calculi are visualized. Bowel: There are no transition zones to indicate bowel obstruction. The appendix appears normal. There is no acute diverticulitis. Peritoneum: There is no intraperitoneal free air or abdominal ascites. There is small fat-containing of focal hernia Vasculature: The abdominal aorta is normal in course and caliber. Adenopathy: None. Pelvic viscera: There is air within the bladder. There is a malpositioned Alejo catheter which appears to have breached the prosthetic urethra, and terminates within the soft tissues posterior to the bladder. There is extraluminal air posterior to the bladder. Evaluation of the perineum is difficult without the benefit of contrast. There is interval decrease in the size the patient's perineal/scrotal abscesses. There is a residual right-sided abscess measuring 37 x 8 mm.. There is also gas present within the perineal soft tissues. Skeletal structures: No destructive osseous lesions are seen. IMPRESSION: 1. Malpositioned Alejo catheter. The catheter appears to have perforated the prostatic urethra and terminates within the soft tissues posterior to the bladder. There is extraluminal gas present posterior to the bladder 2. Interval decrease in the size the patient's perineal/scrotal abscesses. Residual abscess measuring 37 x 8 mm. In addition there is gas present within the perineal soft tissues Electronically signed by: Sudeep Angulo M.D. 04/04/2018 12:04 PM Dictated Date/Time: 04/04/2018 11:42 AM
--- NOTE | 2018-04-04 13:04 | Progress Note ---
Subjective Date of Service: Apr 04, 2018. Subjective pt remains on IV abx, now on dapto and zosyn due to acute WAI, ? ATN. ? obstruction, jenkins in prostate, previous vanco level within range, however, quickly peaked into 30's with elevated creat. On hold for several days, level now 15. creat remains elevated but somewhat improved. afebrile. no new micro. pt to maintain with jenkins and will have referral to urology reconstructive surgery once wounds heal. picc in place, tolerating abx. Problem List Medical Problems: (1) Pyocele Status: Acute (2) Testicular pain, left Status: Acute (3) Urinary retention Status: Acute Objective Vital Signs Date Time Temp Pulse Resp B/P (MAP) Pulse Ox O2 Delivery O2 Flow Rate FiO2 04/04/18 10:03 138/87 (104) 04/04/18 07:59 Room Air 04/04/18 07:44 36.8 58 18 161/93 (115) 98 Room Air 04/04/18 00:10 Room Air 04/03/18 23:51 36.8 68 14 146/83 (104) 97 Room Air 04/03/18 15:38 36.7 60 16 142/79 (100) 96 Room Air 04/03/18 15:10 Room Air Laboratory Results Item Value Date Time Gram Stain - Final Complete 03/24/18 0823 Abscess Scrotum Gram Stain - Final Complete 03/24/18 0823 Tissue Scrotum Gram Stain - Final Complete 03/24/18 0823 Abscess Scrotum Urine Culture - Final Complete 03/23/18 1115 Urine , Clean Catch Corynbact.sp Not Urealyticum Last 24 Hours Test 04/04/18 05:29 White Blood Count 8.12 K/uL Red Blood Count 3.69 M/uL Hemoglobin 10.8 g/dL Hematocrit 32.1 % Mean Corpuscular Volume 87.0 fL Mean Corpuscular Hemoglobin 29.3 pg Mean Corpuscular Hemoglobin Concent 33.6 g/dl RDW Standard Deviation 47.6 fL RDW Coefficient of Variation 14.9 % Platelet Count 354 K/uL Mean Platelet Volume 9.7 fL Sodium Level 141 mmol/L Potassium Level 3.8 mmol/L Chloride Level 107 mmol/L Carbon Dioxide Level 24 mmol/L Anion Gap 10.0 mmol/L Blood Urea Nitrogen 24 mg/dl Creatinine 5.26 mg/dl Est Creatinine Clear Calc Drug Dose 20.2 ml/min Estimated GFR () 13.9 Estimated GFR (Non- 12.0 BUN/Creatinine Ratio 4.5 Random Glucose 93 mg/dl Calcium Level 9.3 mg/dl Assessment and Plan (1) Perineal abscess Assessment & Plan: continue with current course of abx, continue to follow urine output. will need continued wound care post d/c and eventual urethra reconstructive surgery. Continued [facility] stay due to: multiple IV medications needed Discharge planning: home
--- NOTE | 2018-04-04 14:07 | Hospitalist Progress Note ---
Hospitalist Progress Note Date of Service Apr 04, 2018. (Aggie Espinoza CRNP) Subjective Pt evaluation today including: conversation w/ patient, physical exam, chart review, lab review, review of inpatient medication list Voiding: jenkins catheter in place Mr. Dumont is comfortable, no complaints. ROS Constitutional: no chills, aches, sweats or fever Respiratory: no sob,cough, sputum, or wheezing Cardiac: no chest pain, palpitations, edema, orthopnea or lightheadedness GI: no abdominal pain, nausea, vomiting, diarrhea or constipation : no dysuria or hesitancy Extremities: no joint pain or weakness Skin: no rash All other systems reviewed and negative (Aggie Espinoza CRNP) Medications Medications Administered Medications (Trade) Dose Ordered Sig/Fabrizio Route Start Time Stop Time Status Last Admin Dose Admin Morphine Sulfate (MoRPHine SULFATE INJ) 4 mg NOW STAT IV 03/23/18 10:45 03/23/18 10:47 DC 03/23/18 11:11 4 MG Ondansetron HCl (Zofran Inj) 4 mg NOW STAT IV 03/23/18 10:45 03/23/18 10:47 DC 03/23/18 11:11 4 MG Ceftriaxone Sodium (Rocephin Inj) 1 gm NOW STAT IV 03/23/18 11:21 03/23/18 11:22 DC 03/23/18 12:02 1 GM Morphine Sulfate (MoRPHine SULFATE INJ) 2 mg NOW STAT IV 03/23/18 12:57 03/23/18 12:58 DC 03/23/18 13:06 2 MG Heparin Sodium (Porcine) (Heparin Sq 5000 Unit/0.5ml) 5,000 unit Q8H SQ 03/24/18 08:00 04/23/18 07:59 04/04/18 00:13 5,000 UNIT Magnesium Hydroxide (Milk Of Magnesia Susp) 30 ml Q6H PRN PO 03/23/18 14:15 04/22/18 14:14 03/25/18 12:55 30 ML Ondansetron HCl (Zofran Inj) 4 mg Q6H PRN IV 03/23/18 14:15 04/22/18 14:14 03/28/18 19:47 4 MG Sodium Chloride 1,000 ml @ 100 mls/hr Q10H IV 03/23/18 17:00 8/13/18 11:21 DC 03/26/18 01:12 100 MLS/HR Oxycodone HCl (Roxicodone Immediate Rel Tab) 10 mg Q6 PRN PO 03/23/18 14:15 04/06/18 14:14 03/29/18 03:59 10 MG Morphine Sulfate (MoRPHine SULFATE INJ) 4 mg Q4H PRN IV 03/23/18 14:15 04/06/18 14:14 03/24/18 05:46 4 MG Ketorolac Tromethamine (Toradol Inj) 30 mg Q8 PRN IV 03/23/18 14:15 03/28/18 14:14 DC 03/28/18 00:01 30 MG Acetaminophen (Tylenol Tab) 1,000 mg Q6H PRN PO 03/23/18 14:45 04/22/18 14:44 03/28/18 02:13 1,000 MG Piperacillin Sod/ Tazobactam Sod 3.375 gm/Dextrose 115 ml @ 230 mls/hr TODAY@1730 ONCE IV 03/23/18 17:30 03/23/18 17:59 DC 03/23/18 17:55 230 MLS/HR Piperacillin Sod/ Tazobactam Sod 3.375 gm/Dextrose 115 ml @ 28.75 mls/ hr Q8 IV 03/23/18 22:00 03/30/18 10:15 DC 03/30/18 05:43 28.75 MLS/HR Phenazopyridine HCl (Pyridium Tab) 200 mg TID PRN PO 03/23/18 21:00 03/25/18 20:59 DC 03/23/18 22:06 200 MG Bupivacaine HCl (Marcaine 0.5% Pf Inj) 30 ml STK-MED ONCE .ROUTE 03/24/18 07:04 03/24/18 07:05 DC 03/24/18 08:51 30 ML Bacitracin (Bacitracin Inj) 50,000 units STK-MED ONCE .ROUTE 03/24/18 07:04 03/24/18 07:05 DC 03/24/18 08:51 50,000 UNITS Ondansetron HCl (Zofran Inj) 4 mg ONE PRN IV 03/24/18 08:15 03/24/18 09:56 DC 03/24/18 09:55 4 MG Vancomycin HCl 2000 mg/Sodium Chloride 540 ml @ 200 mls/hr Q12H IV 03/27/18 00:00 04/03/18 16:05 DC 03/29/18 23:39 200 MLS/HR Vancomycin HCl 2500 mg/Sodium Chloride 550 ml @ 200 mls/hr TODAY@1230 IV 03/26/18 12:30 03/26/18 18:00 DC 03/26/18 12:28 200 MLS/HR Docusate Sodium (coLACE CAP) 100 mg 1600 ONCE PO 03/26/18 16:00 03/26/18 16:01 DC 03/26/18 17:37 100 MG Docusate Sodium (coLACE CAP) 100 mg BID PO 03/26/18 21:00 04/25/18 20:59 03/31/18 08:28 100 MG Heparin Sodium (Porcine) (Heparin 10 Unit/ ml 5 ml Flush) 5 ml PRN PRN FLUSH 03/29/18 10:15 04/28/18 10:14 04/04/18 02:04 5 ML Hydralazine HCl (HydrALAZINE INJ) 20 mg Q6 PRN IV. 03/30/18 07:45 04/29/18 07:44 03/31/18 08:06 20 MG Sodium Chloride 1,000 ml @ 150 mls/hr Q6H40M IV 03/30/18 09:15 03/31/18 09:28 DC 03/31/18 03:45 150 MLS/HR Sodium Chloride 1,000 ml @ 500 mls/hr Q2H ONCE IV 03/30/18 08:45 03/30/18 10:44 DC 03/30/18 09:05 500 MLS/HR Piperacillin Sod/ Tazobactam Sod 3.375 gm/Dextrose 115 ml @ 28.75 mls/ hr Q12H IV 03/30/18 22:00 04/09/18 21:59 04/04/18 10:23 28.75 MLS/HR Amlodipine Besylate (Norvasc Tab) 5 mg QAM PO 04/03/18 09:00 05/03/18 08:59 04/04/18 08:14 5 MG Daptomycin 275 mg/ Syringe 5.5 ml @ 5 mls/min Q48H IV 04/03/18 17:00 04/09/18 23:59 04/03/18 17:49 5 MLS/MIN (Aggie Espinoza CRNP) Objective Vital Signs Date Time Temp Pulse Resp B/P (MAP) Pulse Ox O2 Delivery O2 Flow Rate FiO2 04/04/18 10:03 138/87 (104) 04/04/18 07:59 Room Air 04/04/18 07:44 36.8 58 18 161/93 (115) 98 Room Air 04/04/18 00:10 Room Air 04/03/18 23:51 36.8 68 14 146/83 (104) 97 Room Air 04/03/18 15:38 36.7 60 16 142/79 (100) 96 Room Air 04/03/18 15:10 Room Air (Aggie Espinoza CRNP) Physical Exam Notes: General: no distress Eyes: normal inspection, PERLL Respiratory: chest non tender, clear to auscultation, normal breath sounds, no respiratory distress, no accessory muscle use Cardiac: regular rate and rhythm, no rub or gallop, no murmur, no edema, no jvd GI/: active bowel sounds, no abd pain or tenderness, soft, non distended Extremities: normal range of motion, normal strength, non tender Neuro/Psych: alert and oriented x 3, normal mood and affect Skin: normal color, dry, wound healing, scant serosanguineous drainage (Aggie Espinoza CRNP) Laboratory Results Last 24 Hours Test 04/04/18 05:29 White Blood Count 8.12 K/uL Red Blood Count 3.69 M/uL Hemoglobin 10.8 g/dL Hematocrit 32.1 % Mean Corpuscular Volume 87.0 fL Mean Corpuscular Hemoglobin 29.3 pg Mean Corpuscular Hemoglobin Concent 33.6 g/dl RDW Standard Deviation 47.6 fL RDW Coefficient of Variation 14.9 % Platelet Count 354 K/uL Mean Platelet Volume 9.7 fL Sodium Level 141 mmol/L Potassium Level 3.8 mmol/L Chloride Level 107 mmol/L Carbon Dioxide Level 24 mmol/L Anion Gap 10.0 mmol/L Blood Urea Nitrogen 24 mg/dl Creatinine 5.26 mg/dl Est Creatinine Clear Calc Drug Dose 20.2 ml/min Estimated GFR () 13.9 Estimated GFR (Non- 12.0 BUN/Creatinine Ratio 4.5 Random Glucose 93 mg/dl Calcium Level 9.3 mg/dl (Aggie Espinoza CRNP) Assessment and Plan Mr. Dumont is a 47 year old man here for scrotal abscess with subsequent WAI possibly secondary to vancomycin. Acute kidney failure: Etiology unknown, - retroperitoneal US with hydronephrosis, appears euvolemic, electrolytes wnl - creatinine peaked at 5.58, 5.26 today - ATN is possible as well as possible vancomycin nephropathy, avoid nephrotoxins , vancomycin changed to daptomycin - nephrology consulted - no further IVF, no need for dialysis at this point Scrotal abscess s/p Incision and drainage with cystoscopy and dilation of stricture and difficult jenkins placement 03/24/18 - continue wound care: change loose packing (one 4x4) once daily; change surrounding dressing 3x per day or as soiled - patient had been refusing nursing care changes and had been changing dressing himself, but did agree to it today - Per urologist, do not manipulate Jenkins catheter, continue 2+ weeks since the day of procedure - needs follow up with reconstruction urologist - Joseluis or Meghan. - Urology team called [facility], spoke with on staff Physician Riveter Helper Nathan, report states Nathan is familiar with patient. Discussed wound care instructions, importance of maintaining Jenkins catheter, and necessity of referral to reconstruction urologist. Nathan will be arranging referral to Meghan. - per , possible concern for urine in the rectum/fistula Possible, however patient will need to heal from this infection, I&D/catheter placement for 3-4 weeks before repair would be advisable. - Corynebacterium grown abscess culture - continue Zosyn and daptomycin, ID onboard - PICC placed, will need at least 2 weeks antibiotics - will need to organize with [facility] beforehand - per ID: will need min 14 days through apr 09, will need weekly cbc, cmp HTN - amlodipine initiated by nephrology, continue hydralazine prn Full code DVT proph - heparin (Aggie Espinoza CRNP) PROPOSAL ANALYST Physician Supervision Note: I discussed with Aggie Espinoza PROPOSAL ANALYST and agree with findings and plan as documented in the note. Any exceptions or clarifications are listed here: None Documented By: Chencho Crutis (Chencho Curtis M.D.)
[2018-04-04 14:54] VITALS: BP 135/80; PULSE 60; TEMP 36.8; O2SAT 97
[2018-04-04 16:00] VITALS: O2SAT 97
[2018-04-04] MEDS ORDERED: POLYETHYLENE (MIRALAX) 17 GM PACK PO PRN (17:15)
[2018-04-04 23:53] VITALS: BP 127/80; PULSE 61; TEMP 36.8; O2SAT 96
[2018-04-05] MEDS: HEPARIN SOD 5000 UNIT/0.5 ML CARP SQ SCH ×4 (00:01→23:38)
[2018-04-05 06:41] LABS: CALCIUM 9.5 mg/dl (8.5-10.1); CREATININE 5.05 mg/dl (0.60-1.40); POTASSIUM 4.3 mmol/L (3.5-5.1)
[2018-04-05 06:57] VITALS: BP 143/85; PULSE 54; TEMP 36.4; O2SAT 100
--- NOTE | 2018-04-05 09:16 | Hospitalist Progress Note ---
Hospitalist Progress Note Date of Service Apr 05, 2018. (Aggie Espinoza CRNP) Subjective Pt evaluation today including: conversation w/ patient, physical exam, chart review, lab review, review of inpatient medication list Voiding: no voiding problems Mr. Dumont has no pain. He reports drainage from his wound has lessened. He does not have much of an appetite and is a bit constipated. ROS Constitutional: no chills, aches, sweats or fever Respiratory: no sob,cough, sputum, or wheezing Cardiac: no chest pain, palpitations, edema, orthopnea or lightheadedness GI: no abdominal pain, nausea, vomiting, diarrhea : no dysuria or hesitancy Extremities: no joint pain or weakness Skin: no rash All other systems reviewed and negative (Aggie Espinoza CRNP) Medications Medications Administered Medications (Trade) Dose Ordered Sig/Fabrizio Route Start Time Stop Time Status Last Admin Dose Admin Morphine Sulfate (MoRPHine SULFATE INJ) 4 mg NOW STAT IV 03/23/18 10:45 03/23/18 10:47 DC 03/23/18 11:11 4 MG Ondansetron HCl (Zofran Inj) 4 mg NOW STAT IV 03/23/18 10:45 03/23/18 10:47 DC 03/23/18 11:11 4 MG Ceftriaxone Sodium (Rocephin Inj) 1 gm NOW STAT IV 03/23/18 11:21 03/23/18 11:22 DC 03/23/18 12:02 1 GM Morphine Sulfate (MoRPHine SULFATE INJ) 2 mg NOW STAT IV 03/23/18 12:57 03/23/18 12:58 DC 03/23/18 13:06 2 MG Heparin Sodium (Porcine) (Heparin Sq 5000 Unit/0.5ml) 5,000 unit Q8H SQ 03/24/18 08:00 04/23/18 07:59 04/05/18 00:01 5,000 UNIT Magnesium Hydroxide (Milk Of Magnesia Susp) 30 ml Q6H PRN PO 03/23/18 14:15 04/22/18 14:14 03/25/18 12:55 30 ML Ondansetron HCl (Zofran Inj) 4 mg Q6H PRN IV 03/23/18 14:15 04/22/18 14:14 03/28/18 19:47 4 MG Sodium Chloride 1,000 ml @ 100 mls/hr Q10H IV 03/23/18 17:00 03/26/18 11:21 DC 03/26/18 01:12 100 MLS/HR Oxycodone HCl (Roxicodone Immediate Rel Tab) 10 mg Q6 PRN PO 03/23/18 14:15 04/06/18 14:14 03/29/18 03:59 10 MG Morphine Sulfate (MoRPHine SULFATE INJ) 4 mg Q4H PRN IV 03/23/18 14:15 04/06/18 14:14 03/24/18 05:46 4 MG Ketorolac Tromethamine (Toradol Inj) 30 mg Q8 PRN IV 03/23/18 14:15 03/28/18 14:14 DC 03/28/18 00:01 30 MG Acetaminophen (Tylenol Tab) 1,000 mg Q6H PRN PO 03/23/18 14:45 04/22/18 14:44 03/28/18 02:13 1,000 MG Piperacillin Sod/ Tazobactam Sod 3.375 gm/Dextrose 115 ml @ 230 mls/hr TODAY@1730 ONCE IV 03/23/18 17:30 03/23/18 17:59 DC 03/23/18 17:55 230 MLS/HR Piperacillin Sod/ Tazobactam Sod 3.375 gm/Dextrose 115 ml @ 28.75 mls/ hr Q8 IV 03/23/18 22:00 03/30/18 10:15 DC 03/30/18 05:43 28.75 MLS/HR Phenazopyridine HCl (Pyridium Tab) 200 mg TID PRN PO 03/23/18 21:00 03/25/18 20:59 DC 03/23/18 22:06 200 MG Bupivacaine HCl (Marcaine 0.5% Pf Inj) 30 ml STK-MED ONCE .ROUTE 03/24/18 07:04 03/24/18 07:05 DC 03/24/18 08:51 30 ML Bacitracin (Bacitracin Inj) 50,000 units STK-MED ONCE .ROUTE 03/24/18 07:04 03/24/18 07:05 DC 03/24/18 08:51 50,000 UNITS Ondansetron HCl (Zofran Inj) 4 mg ONE PRN IV 03/24/18 08:15 03/24/18 09:56 DC 03/24/18 09:55 4 MG Vancomycin HCl 2000 mg/Sodium Chloride 540 ml @ 200 mls/hr Q12H IV 03/27/18 00:00 04/03/18 16:05 DC 03/29/18 23:39 200 MLS/HR Vancomycin HCl 2500 mg/Sodium Chloride 550 ml @ 200 mls/hr TODAY@1230 IV 03/26/18 12:30 03/26/18 18:00 DC 03/26/18 12:28 200 MLS/HR Docusate Sodium (coLACE CAP) 100 mg 1600 ONCE PO 03/26/18 16:00 03/26/18 16:01 DC 03/26/18 17:37 100 MG Docusate Sodium (coLACE CAP) 100 mg BID PO 03/26/18 21:00 04/25/18 20:59 03/31/18 08:28 100 MG Heparin Sodium (Porcine) (Heparin 10 Unit/ ml 5 ml Flush) 5 ml PRN PRN FLUSH 03/29/18 10:15 04/28/18 10:14 04/05/18 02:20 5 ML Hydralazine HCl (HydrALAZINE INJ) 20 mg Q6 PRN IV. 03/30/18 07:45 04/29/18 07:44 03/31/18 08:06 20 MG Sodium Chloride 1,000 ml @ 150 mls/hr Q6H40M IV 03/30/18 09:15 03/31/18 09:28 DC 03/31/18 03:45 150 MLS/HR Sodium Chloride 1,000 ml @ 500 mls/hr Q2H ONCE IV 03/30/18 08:45 03/30/18 10:44 DC 03/30/18 09:05 500 MLS/HR Piperacillin Sod/ Tazobactam Sod 3.375 gm/Dextrose 115 ml @ 28.75 mls/ hr Q12H IV 03/30/18 22:00 04/09/18 21:59 04/04/18 22:19 28.75 MLS/HR Amlodipine Besylate (Norvasc Tab) 5 mg QAM PO 04/03/18 09:00 05/03/18 08:59 04/04/18 08:14 5 MG Daptomycin 275 mg/ Syringe 5.5 ml @ 5 mls/min Q48H IV 04/03/18 17:00 04/09/18 23:59 04/03/18 17:49 5 MLS/MIN (Aggie Espinoza CRNP) Objective Vital Signs Date Time Temp Pulse Resp B/P (MAP) Pulse Ox O2 Delivery O2 Flow Rate FiO2 04/05/18 06:57 36.4 54 18 143/85 (104) 100 Room Air 04/05/18 00:00 Room Air 04/04/18 23:53 36.8 61 16 127/80 (96) 96 Room Air 04/04/18 16:00 97 Room Air 04/04/18 14:54 36.8 60 16 135/80 (98) 97 Room Air 04/04/18 10:03 138/87 (104) (Aggie Espinoza CRNP) Physical Exam Notes: General: no distress Eyes: normal inspection, PERLL Respiratory: chest non tender, clear to auscultation, normal breath sounds, no respiratory distress, no accessory muscle use Cardiac: regular rate and rhythm, no rub or gallop, no murmur, no edema, no jvd GI/: active bowel sounds, no abd pain or tenderness, soft, mild distention Extremities: normal range of motion, normal strength, non tender Neuro/Psych: alert and oriented x 3, normal mood and affect Skin: normal color, dry (Aggie Espinoza CRNP) Laboratory Results Last 24 Hours Test 04/05/18 05:29 Sodium Level 140 mmol/L Potassium Level 4.3 mmol/L Chloride Level 107 mmol/L Carbon Dioxide Level 25 mmol/L Anion Gap 8.0 mmol/L Blood Urea Nitrogen 26 mg/dl Creatinine 5.05 mg/dl Est Creatinine Clear Calc Drug Dose 21.0 ml/min Estimated GFR () 14.6 Estimated GFR (Non- 12.6 BUN/Creatinine Ratio 5.1 Random Glucose 93 mg/dl Calcium Level 9.5 mg/dl (Aggie Espinoza CRNP) Assessment and Plan Mr. Dumont is a 47 year old man here for scrotal abscess with subsequent WAI possibly secondary to vancomycin. Acute kidney failure: Etiology unknown, - retroperitoneal US with hydronephrosis, appears euvolemic, electrolytes wnl - creatinine peaked at 5.58, trending down slowly - ATN is possible as well as possible vancomycin nephropathy, avoid nephrotoxins , vancomycin changed to daptomycin - nephrology consulted - no further IVF, no need for dialysis at this point Scrotal abscess s/p Incision and drainage with cystoscopy and dilation of stricture and difficult jenkins placement 03/24/18 - healing, drainage decreasing - continue wound care: change loose packing ( one 4x4) once daily; change surrounding dressing 3x per day or as soiled, may wash up to 3x per day with warm soapy water, may shower - Per urologist, do not manipulate Jenkins catheter, continue 2+ weeks since the day of procedure - needs follow up with reconstruction urologist - Joseluis or Meghan. - Urology team called [facility], spoke with on staff Physician Billing And Accounting Staff Assistant Nathan, report states Nathan is familiar with patient. Discussed wound care instructions, importance of maintaining Jenkins catheter, and necessity of referral to reconstruction urologist. Nathan will be arranging referral to Meghan. - per , possible concern for urine in the rectum/fistula Possible, however patient will need to heal from this infection, I&D/catheter placement for 3-4 weeks before repair would be advisable. - Corynebacterium grown abscess culture - continue Zosyn and daptomycin, ID onboard - PICC placed, will need at least 2 weeks antibiotics - will need to organize with assisted beforehand - per ID: will need min 14 days through apr 09, will need weekly cbc, cmp HTN - blood pressures improved, continue amlodipine and continue hydralazine prn Constipation - miralax Full code DVT proph - heparin (Aggie Espinoza ., DYAN) MEDICAL TECHNOLOGIST Physician Supervision Note: I discussed with Aggie Espinoza MEDICAL TECHNOLOGIST and agree with findings and plan as documented in the note. Any exceptions or clarifications are listed here: None Renal function slowly improving Documented By: hCencho Curtis (Chencho Curtis M.D.)
[2018-04-05] MEDS ORDERED: POLYETHYLENE (MIRALAX) 17 GM PACK PO ONE (09:30)
[2018-04-05] MEDS: AMLODIPINE BESYLATE 5 MG TAB PO SCH (09:50)
[2018-04-05] MEDS: DOCUSATE SODIUM 100 MG CAP PO SCH ×2 (09:51→19:56)
[2018-04-05] MEDS: PIPERACILL/TAZOBAC IV 3.375 GM in D5W 100ML IV SCH ×2 (10:00→18:16)
--- NOTE | 2018-04-05 10:00 | Nephrology Progress Note ---
Nephrology Progress Note Date of Service Apr 05, 2018. Chief Complaint F/U for WAI Subjective Fredis was seen and examined in his room this morning. Has been otherwise doing well, asymptomatic. Blood pressure improved. Renal function continues to improve but has been very slow to improve, cr 5.1. Remain non-oliguric. Electrolyte acceptable. Alejo was changed as it perforated to prostate. Review of Systems A complete review of systems was performed. Pertinent positives are noted above. All other systems are negative. Vital Signs Last 8 Hrs Date Time Temp Pulse Resp B/P (MAP) Pulse Ox O2 Delivery O2 Flow Rate FiO2 04/05/18 06:57 36.4 54 18 143/85 (104) 100 Room Air Last Recorded Weight Weight (Kilograms): 103.100 Physical Exam GENERAL: Middle-aged male, AAA x 3, pleasant, healthy-appearing, not in any distress. NECK: Supple, no JVD. RESPIRATORY: Normal breathing efforts, no accessory muscle use, clear to auscultation bilaterally, no wheezes or rales. CARDIOVASCULAR: S1, S2 normal, rate rhythm regular. EXTREMITY: No lower extremity edema NEURO: speech fluent. PSYCHIATRY: Normal mood and judgment Family History Diabetes mellitus Social History Occupation: other Laboratory Results Past 24 Hours 04/05/18 05:29 Test 04/05/18 05:29 Anion Gap 8.0 mmol/L (3-11) Est Creatinine Clear Calc Drug Dose 21.0 ml/min Estimated GFR () 14.6 Estimated GFR (Non- 12.6 BUN/Creatinine Ratio 5.1 (10-20) Calcium Level 9.5 mg/dl (8.5-10.1) Allergies Coded Allergies: No Known Allergies (Unverified , 02/01/18) Medications Current Inpatient Medications Medications (Trade) Dose Ordered Sig/Fabrizio Route Start Time Stop Time Status Last Admin Dose Admin Heparin Sodium (Porcine) (Heparin Sq 5000 Unit/0.5ml) 5,000 unit Q8H SQ 03/24/18 08:00 04/23/18 07:59 04/05/18 00:01 5,000 UNIT Al Hydrox/Mg Hydrox/Simethicone (Maalox Max Susp) 15 ml Q4H PRN PO 03/23/18 14:15 04/22/18 14:14 Magnesium Hydroxide (Milk Of Magnesia Susp) 30 ml Q6H PRN PO 03/23/18 14:15 04/22/18 14:14 03/25/18 12:55 30 ML Ondansetron HCl (Zofran Inj) 4 mg Q6H PRN IV 03/23/18 14:15 04/22/18 14:14 03/28/18 19:47 4 MG Miscellaneous Information (Consult) 1 ea UD PRN N/A 03/23/18 14:15 04/22/18 14:14 Oxycodone HCl (Roxicodone Immediate Rel Tab) 10 mg Q6 PRN PO 03/23/18 14:15 04/06/18 14:14 03/29/18 03:59 10 MG Morphine Sulfate (MoRPHine SULFATE INJ) 2 mg Q4H PRN IV 03/23/18 14:15 04/06/18 14:14 Morphine Sulfate (MoRPHine SULFATE INJ) 4 mg Q4H PRN IV 03/23/18 14:15 04/06/18 14:14 03/24/18 05:46 4 MG Acetaminophen (Tylenol Tab) 1,000 mg Q6H PRN PO 03/23/18 14:45 04/22/18 14:44 03/28/18 02:13 1,000 MG Docusate Sodium (coLACE CAP) 100 mg BID PO 03/26/18 21:00 04/25/18 20:59 04/05/18 09:51 100 MG Polyethylene (Miralax Powder Packet) 17 gm DAILY PRN PO 03/26/18 15:45 04/25/18 15:44 Heparin Sodium (Porcine) (Heparin 10 Unit/ ml 5 ml Flush) 5 ml PRN PRN FLUSH 03/29/18 10:15 04/28/18 10:14 04/05/18 02:20 5 ML Hydralazine HCl (HydrALAZINE INJ) 20 mg Q6 PRN IV. 03/30/18 07:45 04/29/18 07:44 03/31/18 08:06 20 MG Piperacillin Sod/ Tazobactam Sod 3.375 gm/Dextrose 115 ml @ 28.75 mls/ hr Q12H IV 03/30/18 22:00 04/05/18 14:00 04/04/18 22:19 28.75 MLS/HR Amlodipine Besylate (Norvasc Tab) 5 mg QAM PO 04/03/18 09:00 05/03/18 08:59 04/05/18 09:50 5 MG Daptomycin 275 mg/ Syringe 5.5 ml @ 5 mls/min Q48H IV 04/03/18 17:00 04/09/18 23:59 04/03/18 17:49 5 MLS/MIN Daptomycin (Consult) 1 ea UD PRN N/A 04/03/18 16:30 05/03/18 16:29 Piperacillin Sod/ Tazobactam Sod 3.375 gm/Dextrose 115 ml @ 28.75 mls/ hr Q8H IV 04/05/18 18:00 04/09/18 21:59 Impression (1) Acute kidney injury (2) Ureteral stricture (3) Perineal abscess Fredis is a non-diabetic 47-year-old male with a ureteral stricture and perineal abscess. Infection is being treated with vancomycin and zosyn. Blood cultures have been negative.Hospital course complicated by non- oliguric WAI. BP and volume status remain appropriate. BP slightly elevated, currently being treated with PRN hydralazine. Metabolic profile is otherwise acceptable. There is no current indication for dialysis. The rate of rise in serum creatinine was rapid but has started to slow Etiology unclear. Renal US demonstrated Alejo balloon to be in prostate but kidneys not obstructed. Urine output has been appropriate. CPK was normal. Urine microscopy is acellular. ATN is possible as well as possible vancomycin nephropathy. Medications are currently appropriately dosed for kidney function. Volume status is acceptable and IVF have been stopped. Prospective monitoring will be provided with a repeat metabolic profile tomorrow AM. Recommendations --slow recovery from recent acute kidney injury, creatinine 5.1<-- 5.3 <-- 5.4 < --5.8 Electrolyte acceptable. Blood pressure elevated however volume status acceptable, remain non-oliguric. -- continue on amlodipine 5 mg /d --continue to monitor renal function, electrolyte and volume status,If renal function continue to improve, hopefully can be discharged soon with close outpt lab monitoring. --avoid nephrotoxic medications --avoid further IV fluid Will follow.
--- NOTE | 2018-04-05 13:31 | [facility] Operative Report ---
Operative Report Operative Date Apr 05, 2018. Pre-Operative Diagnosis Urinary Retention, Dilated proximal urethra, Scrotal Abscess. Post-Operative Diagnosis Same Procedure(s) Performed Cystoscopy with difficult jenkins Surgeon Santos Micro Photographer Surgeon(s) Mango ZAIDI Estimated Blood Loss None Findings Dilated prostatic urethra Drains None 16 Fr [place] Tip Catheter Anesthesia Type Local Complication(s) none Disposition Bedside. Stayed in room. Indications WAI over last 4-5 days, likely vancomycin related, however, catheter has been displacing. Plan bedside scope and replacement of catheter. RIsks and benefits discussed. Description of Procedure Patient was consented. Patient was prepped and draped in the regular sterile fashion. A time out was completed. A flexible wire was placed in the catheter and the catheter removed. A Flexible Cystoscope was placed into the urethra and taken into the bladder. The prostatic urethra was dilated. The pendulous urethra was irritated and in a state of healing. The wire from the catheter was coiled in the prostatic urethra. A wire was then placed into the bladder. The scope was removed. A 16 Fr catheter was placed over the wire into the bladder. It was elevated with 20 cc of water. The patient was cleaned and left in stable condition having tolerated the procedure well with no complications. I was present and participated in all aspects of the procedure. I attest to the content of the Intraoperative Record and any orders documented therein. Any exceptions are noted below.
[2018-04-05 15:13] VITALS: BP 109/71; PULSE 73; TEMP 37; O2SAT 99
[2018-04-05] MEDS: DAPTOmycin IV 275 MG in SYRINGE 0 ML IV SCH (15:53)
[2018-04-05] MEDS: OXYCODONE HCL IR 5 MG TAB (IMMEDIATE RELEASE) PO PRN (21:09)
[2018-04-05 22:49] VITALS: BP 118/75; PULSE 59; TEMP 36.8; O2SAT 98
[2018-04-06] MEDS: PIPERACILL/TAZOBAC IV 3.375 GM in D5W 100ML IV SCH ×2 (01:44→09:33)
[2018-04-06 06:17] LABS: CALCIUM 9.4 mg/dl (8.5-10.1); CREATININE 4.97 mg/dl (0.60-1.40); POTASSIUM 3.9 mmol/L (3.5-5.1)
[2018-04-06 07:31] VITALS: BP 124/77; PULSE 56; TEMP 36.9; O2SAT 98
[2018-04-06] MEDS: HEPARIN SOD 5000 UNIT/0.5 ML CARP SQ SCH (08:00)
[2018-04-06] MEDS: DOCUSATE SODIUM 100 MG CAP PO SCH (09:00)
[2018-04-06] MEDS: AMLODIPINE BESYLATE 5 MG TAB PO SCH (09:27)
--- NOTE | 2018-04-06 12:34 | Nephrology Progress Note ---
Nephrology Progress Note Date of Service Apr 06, 2018. Chief Complaint F/U for WAI Subjective Fredis was seen and examined in his room this morning. Has been otherwise doing well, asymptomatic. Blood pressure improved. Renal function continues to improve but has been very slow to improve, cr 5.0. Remain non-oliguric. Electrolyte acceptable. Alejo was changed Review of Systems A complete review of systems was performed. Pertinent positives are noted above. All other systems are negative. Vital Signs Last 8 Hrs Date Time Temp Pulse Resp B/P (MAP) Pulse Ox O2 Delivery O2 Flow Rate FiO2 04/06/18 09:45 Room Air 04/06/18 07:31 36.9 56 18 124/77 (93) 98 Room Air Last Recorded Weight Weight (Kilograms): 103.100 Physical Exam GENERAL: middle aged male , AAA x 3, pleasant, healthy-appearing, not in any distress. NECK: Supple, no JVD. RESPIRATORY: Normal breathing efforts, no accessory muscle use, clear to auscultation bilaterally, no wheezes or rales. CARDIOVASCULAR: S1, S2 normal, rate rhythm regular. EXTREMITY: No lower extremity edema NEURO: speech fluent. PSYCHIATRY: Normal mood and judgment Family History Diabetes mellitus Social History Occupation: other Laboratory Results Past 24 Hours 04/06/18 05:27 Test 04/06/18 05:27 Anion Gap 10.0 mmol/L (3-11) Est Creatinine Clear Calc Drug Dose 21.4 ml/min Estimated GFR () 14.9 Estimated GFR (Non- 12.8 BUN/Creatinine Ratio 5.4 (10-20) Calcium Level 9.4 mg/dl (8.5-10.1) Allergies Coded Allergies: No Known Allergies (Unverified , 02/01/18) Medications Current Inpatient Medications Medications (Trade) Dose Ordered Sig/Fabrizio Route Start Time Stop Time Status Last Admin Dose Admin Heparin Sodium (Porcine) (Heparin Sq 5000 Unit/0.5ml) 5,000 unit Q8H SQ 03/24/18 08:00 04/23/18 07:59 04/05/18 23:38 5,000 UNIT Al Hydrox/Mg Hydrox/Simethicone (Maalox Max Susp) 15 ml Q4H PRN PO 03/23/18 14:15 04/22/18 14:14 Magnesium Hydroxide (Milk Of Magnesia Susp) 30 ml Q6H PRN PO 03/23/18 14:15 04/22/18 14:14 03/25/18 12:55 30 ML Ondansetron HCl (Zofran Inj) 4 mg Q6H PRN IV 03/23/18 14:15 04/22/18 14:14 03/28/18 19:47 4 MG Miscellaneous Information (Consult) 1 ea UD PRN N/A 03/23/18 14:15 04/22/18 14:14 Oxycodone HCl (Roxicodone Immediate Rel Tab) 10 mg Q6 PRN PO 03/23/18 14:15 04/06/18 14:14 04/05/18 21:09 10 MG Morphine Sulfate (MoRPHine SULFATE INJ) 2 mg Q4H PRN IV 03/23/18 14:15 04/06/18 14:14 Morphine Sulfate (MoRPHine SULFATE INJ) 4 mg Q4H PRN IV 03/23/18 14:15 04/06/18 14:14 03/24/18 05:46 4 MG Acetaminophen (Tylenol Tab) 1,000 mg Q6H PRN PO 03/23/18 14:45 04/22/18 14:44 03/28/18 02:13 1,000 MG Docusate Sodium (coLACE CAP) 100 mg BID PO 03/26/18 21:00 04/25/18 20:59 04/05/18 09:51 100 MG Polyethylene (Miralax Powder Packet) 17 gm DAILY PRN PO 03/26/18 15:45 04/25/18 15:44 Heparin Sodium (Porcine) (Heparin 10 Unit/ ml 5 ml Flush) 5 ml PRN PRN FLUSH 03/29/18 10:15 04/28/18 10:14 04/06/18 03:18 5 ML Hydralazine HCl (HydrALAZINE INJ) 20 mg Q6 PRN IV. 03/30/18 07:45 04/29/18 07:44 03/31/18 08:06 20 MG Amlodipine Besylate (Norvasc Tab) 5 mg QAM PO 04/03/18 09:00 05/03/18 08:59 04/06/18 09:27 5 MG Daptomycin 275 mg/ Syringe 5.5 ml @ 5 mls/min Q48H IV 04/03/18 17:00 04/09/18 23:59 04/05/18 15:53 5 MLS/MIN Daptomycin (Consult) 1 ea UD PRN N/A 04/03/18 16:30 05/03/18 16:29 Piperacillin Sod/ Tazobactam Sod 3.375 gm/Dextrose 115 ml @ 28.75 mls/ hr Q8H IV 04/05/18 18:00 04/09/18 21:59 04/06/18 09:33 28.75 MLS/HR Impression (1) Acute kidney injury (2) Ureteral stricture (3) Perineal abscess Fredis is a non-diabetic 47-year-old male with a ureteral stricture and perineal abscess. Infection is being treated with vancomycin and zosyn. Blood cultures have been negative.Hospital course complicated by non- oliguric WAI. BP and volume status remain appropriate. BP slightly elevated, currently being treated with PRN hydralazine. Metabolic profile is otherwise acceptable. There is no current indication for dialysis. The rate of rise in serum creatinine was rapid but has started to slow Etiology unclear. Renal US demonstrated Alejo balloon to be in prostate but kidneys not obstructed. Urine output has been appropriate. CPK was normal. Urine microscopy is acellular. ATN is possible as well as possible vancomycin nephropathy. Medications are currently appropriately dosed for kidney function. Volume status is acceptable and IVF have been stopped. Prospective monitoring will be provided with a repeat metabolic profile tomorrow AM. Recommendations --very slow recovery from recent acute kidney injury, creatinine 5.0<--5.1<-- 5.3 <-- 5.4 <--5.8, however, remain non-oliguric volume status electrolyte blood pressure acceptable. Has PICC line to continue the antibiotic. --okay to discharged with close outpatient lab monitoring at least to twice a week --discontinue amlodipine blood pressure seems to be very well controlled and patient was on any antihypertensive prior to arrival. --avoid nephrotoxic medications, NSAID's --instructed to keep well hydrated Will follow.
[2018-04-06] MEDS: OXYCODONE HCL IR 5 MG TAB (IMMEDIATE RELEASE) PO PRN (13:04)
--- NOTE | 2018-04-06 13:43 | Discharge Instructions ---
Discharge Instructions Date of Service Apr 06, 2018. Admission Reason for Admission: Perineal Abscess Discharge Discharge Diagnosis / Problem: Perineal abscess Discharge Goals Goal(s): Therapeutic intervention Activity Recommendations Activity Limitations: resume your previous activity Exercise/Sports Limitations: gradually increase as tolerated . Instructions / Follow-Up Instructions / Follow-Up - Scrotal abscess - Change loose packing (one 4x4) once daily; change surrounding dressing 3x per day or as soiled, may wash up to 3x per day with warm soapy water, may shower - do not manipulate Jenkins catheter, will need follow up with urology - needs follow up with reconstruction urologist - [facility]. - Last day of antibiotics Apr 09, will need weekly cbc - Zosyn 3.375 g tid, Daptomycin 275 mg q48h - will need bi-weekly prp to assess kidney function and electrolytes Current Hospital Diet Patient's current hospital diet: Regular Diet Discharge Diet Recommended Diet: Regular Diet Procedures Procedures Performed: Cystoscopy with difficult jenkins Pending Studies Studies pending at discharge: no Laboratory Results Hemoglobin A1c Test 03/24/18 06:01 Range/Units Estimated Average Glucose 108 mg/dl Hemoglobin A1c 5.4 4.5-5.6 % Medical Emergencies . Who to Call and When: Medical Emergencies: If at any time you feel your situation is an emergency, please call 911 immediately. . Non-Emergent Contact Non-Emergency issues call your: Primary Care Provider Call Non-Emergent contact if: you have a fever, your pain is not controlled, you have any medication questions . . "Provider Documentation" section prepared by Aggie Espinoza. .
--- NOTE | 2018-04-06 13:57 | Discharge Summary ---
Discharge Summary Date of Service Apr 06, 2018. Discharge Summary Admission Date: Mar 23, 2018 at 14:19 Discharge Date: Apr 06, 2018 Discharge Disposition: Home (correction) Principal Diagnosis: Scrotal abscess Problems/Secondary Diagnoses: Acute kidney failure, hypertension, constipation Procedures: CT SCAN OF THE ABDOMEN AND PELVIS WITHOUT CONTRAST CLINICAL HISTORY: Unexplained renal insufficiency history of urethral stricture. PERONEAL CELLULITIS. COMPARISON STUDY: Pelvic CT scan dated March 23, 2018 TECHNIQUE: CT scan of the abdomen and pelvis was performed from the lung bases to the proximal femurs. Images are reviewed in the axial, sagittal, and coronal planes. IV contrast was not administered for this examination. A dose lowering technique was utilized adhering to the principles of ALARA. CT DOSE: 1145.25 mGycm FINDINGS: Lower chest: The heart is normal in size and configuration, without pericardial effusion. The lung bases and pleural spaces are clear. Liver: The unenhanced liver is normal in size, contour, and attenuation. There is no intrahepatic biliary ductal dilatation. Gallbladder: Unremarkable. Spleen: Normal in size and attenuation. Pancreas: Unremarkable. Adrenal glands: Unremarkable. Kidneys: No renal masses are visualized this noncontrast study. There is no hydronephrosis. There is a punctate nonobstructing left renal calculus. No ureteral or bladder calculi are visualized. Bowel: There are no transition zones to indicate bowel obstruction. The appendix appears normal. There is no acute diverticulitis. Peritoneum: There is no intraperitoneal free air or abdominal ascites. There is small fat-containing of focal hernia Vasculature: The abdominal aorta is normal in course and caliber. Adenopathy: None. Pelvic viscera: There is air within the bladder. There is a malpositioned Jenkins catheter which appears to have breached the prosthetic urethra, and terminates within the soft tissues posterior to the bladder. There is extraluminal air posterior to the bladder. Evaluation of the perineum is difficult without the benefit of contrast. There is interval decrease in the size the patient's perineal/scrotal abscesses. There is a residual right-sided abscess measuring 37 x 8 mm.. There is also gas present within the perineal soft tissues. Skeletal structures: No destructive osseous lesions are seen. IMPRESSION: 1. Malpositioned Jenkins catheter. The catheter appears to have perforated the prostatic urethra and terminates within the soft tissues posterior to the bladder. There is extraluminal gas present posterior to the bladder 2. Interval decrease in the size the patient's perineal/scrotal abscesses. Residual abscess measuring 37 x 8 mm. In addition there is gas present within the perineal soft tissues Electronically signed by: Sudeep Angulo M.D. (CHRIS/MAYRA)RETROPERITON COMP CLINICAL HISTORY: 47 years-old Male presenting with acute renal failure, hx of urethra stricture, ?hydro?. TECHNIQUE: Real-time grayscale and limited color Doppler ultrasound imaging of the kidneys and bladder was performed. COMPARISON: Pelvis CT 03/23/2018. FINDINGS: Right kidney: Increased echogenicity of renal parenchyma. Small amount of perinephric fluid at the lower pole. Right kidney measures 12.3 cm. No hydronephrosis. No convincing evidence of calculus or mass. Left kidney: Increased echogenicity of renal parenchyma. Trace amount of perinephric fluid at the lower pole. Left kidney measures 11.9 cm. No hydronephrosis. No convincing evidence of calculus or mass. Bladder: Mild circumferential bladder wall thickening. Although a Jenkins catheter is in place, the balloon is not located within the bladder lumen but rather in the prostate. Bilateral ureteral jets present. Other: None. IMPRESSION: 1. Jenkins balloon is inflated in the prostate. This requires repositioning. 2. No hydronephrosis. 3. Medical renal disease. The report will be called/faxed according to standard departmental protocol. Electronically signed by: Severino Pearce M.D. 03/30/2018 10:[address] OF THE PELVIS WITH CONTRAST CLINICAL HISTORY: Cellulitis of perineum. COMPARISON STUDY: Scrotal ultrasound performed earlier today. TECHNIQUE: Axial images of the pelvis were obtained following intravenous injection of 116 cc Optiray 320 IV. Sagittal and coronal reconstructions were viewed. FINDINGS: Caliber and wall thickness of visualized small and large bowel are normal. Mild bladder wall thickening is noted. There is no acute fracture within the pelvis or hips. There is a lipoma along anterior aspect of the left iliopsoas muscle. This is benign. Note is made of extensive inflammation within the perineum and the superior aspect of the scrotum with scrotal edema. Note is made of a 7.5 x 2.9 cm rim-enhancing fluid collection within the perineum/base of the penis. In addition, there is an adjacent 6.9 x 5.9 cm fluid collection within the superior aspect of the scrotum/inferior perineum which suggests an additional abscess. There is no soft tissue gas. IMPRESSION: 1. Extensive infectious process involving the perineum, base of the penis and upper scrotum consistent with cellulitis with associated 7.5 x 2.9 cm abscess within the perineum/base of the penis and a 6.9 x 5.9 cm abscess within the superior aspect of the scrotum/inferior perineum. Urologic consultation is recommended. 2. Bladder wall thickening which could be correlated with urinalysis to exclude cystitis. Electronically signed by: Nelson Parrish M.D. 03/23/2018 5:14 PM (TESTICULAR) SCROTUM-CONT CLINICAL HISTORY: 47 years-old Male presenting with R scrotal pain and induration, R testicular tenderness. TECHNIQUE: Real-time grayscale and color and spectral Doppler ultrasound imaging of the scrotum was performed. COMPARISON: 01/30/2018. FINDINGS: Right testis: Normal echogenicity and echotexture. Testis measures 4.5 x 2.8 x 2.4 cm. Normal color Doppler flow and arterial and venous waveforms in the testicular parenchyma. No significant enlargement of the epididymal head, however, hyperemia and enlargement of the epididymal tail suggested. Small hydrocele with low-level internal echoes. No varicocele. Posterior and inferior to the right testis located within the scrotal wall is an 8 mm hypoechoic nodular mass. Internal vascular flow is noted within this this is unchanged from prior exam. Left testis: Normal echogenicity and echotexture. Testis measures 4.2 x 2.9 x 2.2 cm. Normal color Doppler flow and arterial and venous waveforms in the testicular parenchyma. A lesser degree of epididymal hyperemia suggested on the left. Small hydrocele with low-level internal echoes. No varicocele. Symmetric perfusion of the testes. Other: Hyperemia of the scrotum with skin thickening suggested. A septated hypoechoic complex 6.4 x 5.6 x 6.9 cm collection along the right aspect of the scrotum. There is an additional similar-appearing 7.4 x 5.9 x 4.0 cm collection. IMPRESSION: 1. 2 complex fluid collections measuring 6.9 cm and 7.4 cm concerning for abscesses. These are likely located within the scrotal wall or surrounding soft tissues. These are extratesticular and extra scrotal. Urologic consultation advised. 2. No evidence of testicular torsion. 3. Findings suggest right epididymitis. 4. Complex bilateral small hydroceles. Pyoceles not excluded. 5. Indeterminate subcentimeter nodule in the posterior right scrotal wall. Correlate clinically. This is unchanged from prior. Electronically signed by: Severino Pearce M.D. 03/23/2018 12:08 PM Consultations: Dr. Graham from urology, Dr. Corea from nephrology Medication Reconciliation Medication Profile: Unable to Obtain Active Prescriptions or Reported Meds Discharge Exam ROS Constitutional: no chills, aches, sweats or fever Respiratory: no sob,cough, sputum, or wheezing Cardiac: no chest pain, palpitations, edema, orthopnea or lightheadedness GI: no abdominal pain, nausea, vomiting, diarrhea or constipation : some bladder discomfort - bladder scanned by nursing- no retained urine, jenkins functioning properly Extremities: no joint pain or weakness Skin: no rash All other systems reviewed and negative PE General: no distress Eyes: normal inspection, PERLL Respiratory: chest non tender, clear to auscultation, normal breath sounds, no respiratory distress, no accessory muscle use Cardiac: regular rate and rhythm, no rub or gallop, no murmur, no edema, no jvd GI/: active bowel sounds, no abd pain or tenderness, soft, non distended, light nguyen colored urine, no clots Extremities: normal range of motion, normal strength, non tender Neuro/Psych: alert and oriented x 3, normal mood and affect Skin: normal color, dry, scrotal wound healing, scant serous drainage Hospital Course Mr. Dumont is a 47 year old man here for scrotal abscess with subsequent WAI possibly secondary to vancomycin. Acute kidney failure: - retroperitoneal US with hydronephrosis, appears euvolemic, electrolytes wnl - creatinine peaked at 5.58, trending down slowly - will need biweekly prp at the correction - ATN is possible as well as possible vancomycin nephropathy, avoid nephrotoxins , vancomycin changed to daptomycin - nephrology consulted - no further IVF, no need for dialysis at this point, can be discharged Scrotal abscess s/p Incision and drainage with cystoscopy and dilation of stricture and difficult jenkins placement 03/24/18, Jenkins change 04/05 - healing, drainage decreasing - continue wound care: change loose packing ( one 4x4) once daily; change surrounding dressing 3x per day or as soiled, may wash up to 3x per day with warm soapy water, may shower - Per urologist, do not manipulate Jenkins catheter,. - Urology team called [facility], spoke with on staff Physician Craft Worker Nathan, report states Nathan is familiar with patient. Discussed wound care instructions, importance of maintaining Jenkins catheter, and necessity of referral to reconstruction urologist. Nathan will be arranging referral to [facility]. - per , possible concern for urine in the rectum/fistula, however patient will need to heal from this infection, I&D/catheter placement for 3-4 weeks before repair would be advisable. - Corynebacterium grown abscess culture - continue Zosyn and daptomycin, ID onboard - PICC placed, will need at least 2 weeks antibiotics - per ID: will need min 14 days through apr 09, will need weekly cbc, biweekly prp HTN - blood pressures improved, will discontinue amlodipine per nephrology rec Constipation - miralax SWATCH CLERK Physician Supervision Note: I discussed with Aggie Espinoza NP and agree with findings and plan as documented in the note. Any exceptions or clarifications are listed here: None As above muscular communicate with the correction regarding his dressing change and completion of antibiotic therapy with potential urological follow-up in the future Documented By: Chencho Curtis Total Time Spent: Greater than 30 minutes This includes examination of the patient, discharge planning, medication reconciliation, and communication with other providers. Discharge Instructions Please refer to the electronic Patient Visit Report (Discharge Instructions) for additional information. Follow-Up urology, reconstructive urology Additional Copies To Jodi PINTO
[2018-04-06 14:03] VITALS: BP 124/77; PULSE 56; TEMP 36.9; O2SAT 98
[2018-04-06 14:55] VITALS: BP 108/71; PULSE 66; TEMP 36.9; O2SAT 96
[2018-04-06] MEDS ORDERED: D5W IV SCH (18:00)
[2018-04-06] MEDS ORDERED: TAZOBAC IV SCH (18:00)
[2018-04-06] MEDS ORDERED: PIPERACILL IV SCH (18:00)
== END 2018-04-06 16:20 | disposition home or self-care (01) | DRG 728 ==
LOC: C.EDB 10:17 → C.MSN 14:19 → EDBEDREQ 14:34 → ENRESERV 15:26
PROVIDERS: ADMIT Internal Medicine; ATTEND Nurse Practitioner Family
PROC: 0V950ZX Drainage of Scrotum, Open Approach, Diagnostic (ICD-10-PCS; principal; 2018-03-24 15:35)
PROC: 0T7D8DZ Dilation of Urethra with Intraluminal Device, Via Natural or Artificial Opening Endoscopic (ICD-10-PCS; principal; 2018-03-24 15:35)
DX: N49.2 Inflammatory disorders of scrotum (principal); N17.9 Acute kidney failure, unspecified; I10 Essential (primary) hypertension; K59.00 Constipation, unspecified; N35.9 Urethral stricture, unspecified